=== PATIENT | male | born 1950 | race Caucasian/White ===

== ENCOUNTER 2017-05-16 09:00 | Outpatient (RCR) | payer MEDICARE, OTHER, MEDICAID, SELFPAY ==
--- NOTE | 2017-03-21 10:07 | HP.PTEVAL_ITS ---
Patient's Visit Information MAGED HARO is a 66 year old M referred to Physical Therapy by Julissa Jon NP.GUILLEPSIT with a diagnosis of SPONDYLOLISTHESIS AT L4-5 LEVEL. Date of Evaluation: 03/21/17 Physical Therapist: Anthony Rogers, PT, - Visit Plan Frequency: 2x /Week Duration: 4 Weeks Plan: POSTURAL EX'S,DLS,LE FLEXABLITY,STRENGTHENING,CP,NUSTEP. WEAN TO CANE , WEAN LUMBAR BRACE ANNE - Subjective Subjective: This 66 y/o male presents to physical therapy with spondylolisthesis at L4-5. Patient has had lumbar pain and radicular symptoms both for many years. Patient underwent s/p bilateral microdecompression L4-5 and instrumented fusion L4-5 (Peak cage fusion) on 02/27/17 done by at [facility].Patient was d/c 2 days later with fww and lumbar brace. Patient had complication with MEDS. Seen DR assisted recommended PT. Patient to RTD in May. Currently,patient has difficulty sleeping not because of pain. Patient symptoms increase with walking ,standing but needs FWW. Patient cane ambualte with no device.Wean lumbar brace as needed.Denies parathesia/tingling. Coughing/sneezing -. Patient has difficulty return prior level of function.Patient ambulates no device in home. SOCAIL: SINGLE. 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 GAIT: mild foward posture reciprocal pattern mild slow jon. NEURO: denies paratrhesia/tingling ,reflexes L3-,L4-5,L5-S1 1/3. SKIN: inscion well approximate ,mild redness. MMT: quads/hams/hip 4-/5, ankle 4/5. SYMMTRIES : align. LUMBAR ROM: flexion mod loss,extension severe loss,mod loss side glides - Special Tests L/S Slump test left side: Negative L/S Slump test right side: Negative L/S Left Straight Leg Raise: Negative L/S Right Straight Leg Raise: Negative - Goals Goal 1:: Independant with HEP Goal Time Frame: 4-6 Weeks Goal 2:: Independant with posture/body mechanics for ADL'S Goal Time Frame: 4-6 Weeks Goal 3:: Patient ambulate with no device to improve quality of gait community distances Goal Time Frame: 4-6 Weeks Goal 4:: Patient increase strength of BLE by 4/5 to improve function with ADL'S and function. Goal Time Frame: 4-6 Weeks Goal 5:: Patient improve lumbar ROM for function of recovery for ADL'S Goal Time Frame: 4-6 Weeks Goal 6:: Patient be able to perform ADL'S and housework tasks with min limitations Goal Time Frame: 4-6 Weeks - Rehabilitation Potential Physical Therapy Diagnosis: Patient has lumbar fusion peak cage instrumentation L4-5 with decrease gait ,strength,pain,lumbar ROM impairs with ADLS and function Rehabilitation Potential: Excellent - Anticipated Interventions Patient/Client Instruction: Educate patient on: Condition, Plan of Care For the Purpose of:: To decrease pain, To increase ROM, To improve muscle performance and motor function, To improve ability to perform ADL's, To increase tolerance to activity/condition/position, To improve ability of physical actions for home/community/work/leisure, To improve health of tissue, To decrease soft tissue restriction, To increase flexibility/ROM, To improve health and function, To improve ability to perform tasks related to life management Therapeutic Exercise to Include: Strength training, Postural training, Flexibilty training, Gait and locomotor training, Active ROM, Dynamic Lumbar Stabilization For the Purpose of:: To decrease pain, To increase ROM, To improve muscle performance and motor function, To improve ability to perform ADL's, To increase tolerance to activity/condition/position, To improve performance and independence with ADL's, To improve ability of physical actions for home/ community/work/leisure, To improve gait and locomotor functions, To improve health of tissue, To decrease soft tissue restriction, To increase flexibility/ ROM, To improve endurance, To improve balance, To improve health and function, To improve ability to perform tasks related to life management Cryotherapy (ice pack, ice massage): Yes Thermo therapy (hot pack): Yes For the Purpose of:: To decrease pain, To increase ROM, To improve nutrient delivery to tissue, To increase oxygenation perfusion Thank you for the opportunity to evaluate your patient. For Medicare and Medicare HMO plans, please review the plan of care and approve it. It will need to be FAXED BACK to us at [phone] for Medicare purposes. Please let me know if there are questions or concerns regarding this plan of care. Physician Signature: Date:
--- NOTE | 2017-04-17 10:42 | HP.PTREVAL_ITS ---
Julissa Jon , FERNANDO.ISAAC It has been my pleasure to treat MAGED HARO over the last 9 visits for SPONDYLOLISTHESIS AT L4-5 LEVEL. Please see the progress note below for an update on the physical therapy plan of care! Subjective: Doing well ..Able to walk no increase pain and standing for ADLS'. Wean self from lumbar.. use bone stimulator Objective/Function: POSTURE:mild foward posture. GAIT: reciprocal pattern , jon. MMT: quads/hams 4/5 ,hip 4/5,ankle. LUMBAR ROM: mod loss lumbar , extensionmod/severe,mod loss side glides. FLEXABLITY: min hams Plan Plan: cont POC 2xweek for 4weeks Goals Goal 1:: Independant with HEP Goal Time Frame: 4-6 Weeks Goal Progress: Progressing Goal 2:: Independant with posture/body mechanics for ADL'S Goal Time Frame: 4-6 Weeks Goal Progress: Progressing Goal 3:: Patient ambulate with no device to improve quality of gait community distances Goal Time Frame: 4-6 Weeks Goal Progress: Progressing Goal 4:: Patient increase strength of BLE by 4/5 to improve function with ADL'S and function. Goal Time Frame: 4-6 Weeks Goal Progress: Goal Met Goal 5:: Patient improve lumbar ROM for function of recovery for ADL'S Goal Time Frame: 4-6 Weeks Goal Progress: Progressing Goal 6:: Patient be able to perform ADL'S and housework tasks with min limitations Goal Time Frame: 4-6 Weeks Goal Progress: Progressing Anticipated Interventions Patient/Client Instruction: Educate patient on: Condition, Plan of Care For the Purpose of:: To decrease pain, To increase ROM, To improve muscle performance and motor function, To improve ability to perform ADL's, To increase tolerance to activity/condition/position, To improve ability of physical actions for home/community/work/leisure, To improve health of tissue, To decrease soft tissue restriction, To increase flexibility/ROM, To improve health and function, To improve ability to perform tasks related to life management Therapeutic Exercise to Include: Strength training, Postural training, Flexibilty training, Gait and locomotor training, Active ROM, Dynamic Lumbar Stabilization For the Purpose of:: To decrease pain, To increase ROM, To improve muscle performance and motor function, To improve ability to perform ADL's, To increase tolerance to activity/condition/position, To improve performance and independence with ADL's, To improve ability of physical actions for home/ community/work/leisure, To improve gait and locomotor functions, To improve health of tissue, To decrease soft tissue restriction, To increase flexibility/ ROM, To improve endurance, To improve balance, To improve health and function, To improve ability to perform tasks related to life management Cryotherapy (ice pack, ice massage): Yes Thermo therapy (hot pack): Yes For the Purpose of:: To decrease pain, To increase ROM, To improve nutrient delivery to tissue, To increase oxygenation perfusion Please do not hesitate to contact me at [phone] by phone or Fax: if you have questions or concerns regarding this new plan of care! Sincerely, Anthony Rogers PT,
--- NOTE | 2017-05-16 09:56 | HP.PTDCSUM_ITS ---
HP - PT D/C Summary It has been my pleasure to treat MAGED HARO under orders from Murcia NP.KOPSIT for the diagnosis of SPONDYLOLISTHESIS AT L4-5 LEVEL for a total of 16 visit(s). Discharge Date: 05/16/17 Please see the following information for a summary of their discharge status. - Subjective Subjective: Doing good .. Able do everything ADL'S and housework tasks,no limited with walking about 0ne mile. Standing extended distances - Pain Bilateral Back Pain Intensity (Out of 10): 0 Bilateral Lower Extremity Pain Intensity (Out of 10): 2 - Overall Improvement % Improvement: 80 - Objective Objective/Function: POSTURE:MILD FOWARD POSTURE. GAIT: NORMAL SHASHA RECIPROCAl PATTERN. BALANCE: GOOD. NEURO: INACT. MMT:QUADS/HAMS/HIP/ANKLE 5/ 5. LUMBAR ROM: flexion min loss,extension mod ,side glides daxa loss. FLEXABLIY : hams min loss - Goals Goal 1:: Independant with HEP Goal Progress: Goal Met Goal 2:: Independant with posture/body mechanics for ADL'S Goal Progress: Goal Met Goal 3:: Patient ambulate with no device to improve quality of gait community distances Goal Progress: Goal Met Goal 4:: Patient increase strength of BLE by 4/5 to improve function with ADL'S and function. Goal Progress: Goal Met Goal 5:: Patient improve lumbar ROM for function of recovery for ADL'S Goal Progress: Goal Met Goal 6:: Patient be able to perform ADL'S and housework tasks with min limitations Goal Progress: Goal Met - Plan Plan: d/c to HEP - D/C Information Discharge Comments: HEP If there are questions or concerns regarding this patient's physical therapy, please feel free to call me at [phone]. Thank you for the referral of this patient. Sincerely, Anthony Rogers, PT,
== END 2017-05-16 14:40 | disposition home or self-care (01) ==
LOC: PT 09:00
PROVIDERS: Family Provider Family Medicine; PCP Family Medicine; Visit Provider Nurse Practitioner Acute Care
DX: Z98.890 Other specified postprocedural states (principal)
CPT/HCPCS: 97110; 97162; 97530

== ENCOUNTER 2017-11-22 08:47 | Day surgery (SDC) | payer MEDICARE, OTHER, SELFPAY ==
[2017-11-22 09:06] VITALS: BP 123/73; PULSE 68; RESP 16; TEMP 36.4; O2SAT 94; BMI 31.2
--- NOTE | 2017-11-22 10:00 | COLBX_PTH ---
PATIENT: MAGED HARO LOC: EN U#:[id number] AGE/SX: 67/M ROOM: RE11/22/[address]: Dr. Seferino Orozco MD : 1950 BED: DIS: 11/22/2017 SPEC #: [id number] RECD: 11/22/17 11:41 STATUS: RAJNI TAMY #: [id number] ERIC: 11/22/17 10:[address]: Seferino Orozco DEPT: SURGICAL PATHOLOGY RECD BY: Juan Piña ENTERED: 11/22/17 12:00 SP TYPE: COLON BX OTHR DR: Dr. Shane Das, DO Tissues: Sigmoid colon biopsy Procedures: Surgery Specimen Level IV HEADER OPERATION: Colonoscopy (MAC) PRE-OP DIAGNOSIS: Screening TISSUE SUBMITTED: Sigmoid colon polyp MICROSCOPIC DIAGNOSIS Sigmoid colon polyp, biopsy: Fragments of hyperplastic polyp. AM:shree 11/25/17 MICROSCOPIC DESCRIPTION Slides are reviewed. GROSS DESCRIPTION Received in fixative is one container labeled with the patient's name and designated sigmoid colon polyp. The specimen consists of two pieces of maradiaga-pink polyp each measuring in aggregate 0.5 x 0.5 x 0.2 cm. Also present in the container are a few fragments of soft tissue mixed with fecal material measuring in aggregate 0.2 x 0.2 x 0.1 cm. The entire specimen is submitted in one cassette. / SJ:shree 11/22/17 TC:5 CPT: 95528
[2017-11-22 10:24] VITALS: BP 123/73; BP 76/42; PULSE 60; RESP 16; TEMP 35.9; O2SAT 92
--- NOTE | 2017-11-22 10:25 | OP.ENDO_ITS ---
Patient Name: Jake Sánchez Procedure Date: 11/22/2017 9:51 AM Date of : 1950 Age: 67 Procedure: Colonoscopy Indications: Screening for colorectal malignant neoplasm Providers: Seferino Orozco MD Referring MD: Seferino Orozco MD Medicines: Monitored Anesthesia Care Patient Profile: Last Colonoscopy: 2004. Complications: No immediate complications. Procedure: Pre-Anesthesia Assessment: - Prior to the procedure, a History and Physical was performed, and patient medications and allergies were reviewed. The patient's tolerance of previous anesthesia was also reviewed. The risks and benefits of the procedure and the sedation options and risks were discussed with the patient. All questions were answered, and informed consent was obtained. Prior Anticoagulants: The patient has taken no previous anticoagulant or antiplatelet agents. After reviewing the risks and benefits, the patient was deemed in satisfactory condition to undergo the procedure. After I obtained informed consent, the scope was passed under direct vision. Throughout the procedure, the patient's blood pressure, pulse, and oxygen saturations were monitored continuously. The colonoscope was introduced through the anus and advanced to the cecum, identified by appendiceal orifice and ileocecal valve. The colonoscopy was performed without difficulty. The patient tolerated the procedure well. The quality of the bowel preparation was good. Scope In: 10:01:37 AM Scope Withdrawal Time 0 hours 13 minutes 34 seconds Scope Out: 10:19:31 AM Total Procedure Duration Time 0 hours 17 minutes 54 seconds Findings: Non-bleeding internal hemorrhoids were found during retroflexion. The hemorrhoids were Grade II (internal hemorrhoids that prolapse but reduce spontaneously). The exam was otherwise without abnormality. Two polyps were found in the proximal sigmoid colon. The polyps were small in size. These polyps were removed with a hot snare. Resection and retrieval were complete. Impression: - Non-bleeding internal hemorrhoids. - The examination was otherwise normal. - Two small polyps in the proximal sigmoid colon, removed with a hot snare. Resected and retrieved. Recommendation: - Discharge patient to home. - Resume previous diet. - Continue present medications. - Await pathology results. - Repeat colonoscopy date to be determined after pending pathology results are reviewed for surveillance. - Physician's office will call you with pathology results and recommendations for when to repeat colonoscopy. Procedure Code(s): --- Professional --- 79760, 33, Colonoscopy, flexible; with removal of tumor(s), polyp(s), or other lesion(s) by snare technique Diagnosis Code(s): --- Professional --- Z12.11, Encounter for screening for malignant neoplasm of colon K64.1, Second degree hemorrhoids D12.5, Benign neoplasm of sigmoid colon CPT copyright 2017 [employer] [place] [employer]. All rights reserved. The codes documented in this report are preliminary and upon ordnance engineer review may be revised to meet current compliance requirements. Seferino Orozco MD 11/22/2017 10:25:32 AM This report has been signed electronically. Number of Addenda: 0 Note Initiated On: 11/22/2017 9:51 AM
[2017-11-22 10:30] VITALS: BP 123/73; BP 92/49; PULSE 56; RESP 16; O2SAT 95
[2017-11-22 10:35] VITALS: BP 105/67; BP 123/73; PULSE 60; RESP 16; O2SAT 96
[2017-11-22 10:40] VITALS: BP 123/71; BP 123/73; PULSE 64; RESP 16; TEMP 36.2; O2SAT 95
[2017-11-22 10:59] VITALS: BP 123/73
== END 2017-11-22 11:00 | disposition home or self-care (01) ==
LOC: EN 08:48 → AC 08:49
PROVIDERS: Family Provider Family Medicine; PCP Family Medicine; Referring Provider Surgery; Visit Provider Surgery
PROC: 0DJD8ZZ Inspection of Lower Intestinal Tract, Via Natural or Artificial Opening Endoscopic (ICD-10-PCS; CPT 45378; principal; 2017-11-22 09:55)
DX: Z12.11 Encounter for screening for malignant neoplasm of colon (principal); K63.5 Polyp of colon; K64.1 Second degree hemorrhoids; K58.9 Irritable bowel syndrome, unspecified; M19.90 Unspecified osteoarthritis, unspecified site; G89.29 Other chronic pain; I10 Essential (primary) hypertension; F32.9 Major depressive disorder, single episode, unspecified; F41.9 Anxiety disorder, unspecified; Z87.19 Personal history of other diseases of the digestive system; Z98.1 Arthrodesis status; Z79.899 Other long term (current) drug therapy; F17.200 Nicotine dependence, unspecified, uncomplicated
CPT/HCPCS: 45385; 88305; J7120

== ENCOUNTER → 2018-05-13 11:31 | Outpatient (CLI) | payer MEDICARE, OTHER, SELFPAY ==
[2018-05-13 11:02] VITALS: BMI 34.7
[2018-05-13 12:58] LABS: Anion Gap 6 (5-15); BUN 13 mg/dL (7-18); BUN/Creat Ratio 10.2 RATIO (10-20); Calcium,Total 9.4 mg/dL (8.5-10.1); Chloride 106 mmol/L (98-107); Creatinine, Serum 1.27 mg/dL (0.70-1.30); EST Glomerular Filtration Rate 60 mL/min (>60); Est Glom Filt Rate - Afr Amer 73 mL/min (>60); Glucose 93 mg/dL (74-106); Potassium 4.2 mmol/L (3.5-5.1); Sodium Level 144 mmol/L (136-145)
== END ==
PROVIDERS: Family Provider Family Medicine; PCP Family Medicine; Visit Provider Family Medicine
DX: I10 Essential (primary) hypertension (principal)
CPT/HCPCS: 36415; 80048

== ENCOUNTER → 2018-08-12 | Outpatient (CLI) | payer MEDICARE, OTHER, SELFPAY ==
[2018-08-12 14:28] VITALS: BMI 36.0
--- NOTE | 2018-08-12 14:42 | RAD_ITS ---
STUDY: X-RAY - CERVICAL SPINE REASON FOR EXAM: Male, 67 years old. Pain TECHNIQUE: 3 view(s) of the cervical spine were obtained. COMPARISON: 03/11/2014 FINDINGS: There is no evidence of fracture or dislocation in the cervical spine. The dens is intact. The vertebral body heights are well-maintained. There are mild degenerative changes with disc space narrowing and small osteophytes. The prevertebral soft tissues are unremarkable. There is no radiodense foreign body. RAD/Cerv Spine 2 or 3 Views IMPRESSION: No fracture or dislocation in the cervical spine. Mild degenerative change. Electronically Signed: Alonso Huntley, at 15:22 EDT Tel , Service support ,
--- NOTE | 2018-08-12 14:42 | RAD_ITS ---
STUDY: X-RAY - THORACIC SPINE REASON FOR EXAM: Male, 67 years old. Back pain TECHNIQUE: 3 view(s) of the thoracic spine were obtained. COMPARISON: None. FINDINGS: Normal kyphosis of the thoracic spine. Mild focal dextroscoliosis of the midthoracic spine. There is multilevel endplate spondylosis of the thoracic vertebrae. There is multilevel disc space narrowing of the thoracic spine. The soft tissue structures are unremarkable. RAD/Thoracic Spine 3 Views IMPRESSION: Mild dextro scoliosis of the upper thoracic spine with diffuse degenerative disc disease. Electronically Signed: Juan Nguyen MD at 15:55 EDT Tel , Service support ,
== END | disposition home or self-care (01) ==
LOC: HPRAD 14:40
PROVIDERS: Family Provider Family Medicine; PCP Family Medicine; Referring Provider Physician Assistant Surgical; Visit Provider Physician Assistant Surgical
DX: S29.019A Strain of muscle and tendon of unspecified wall of thorax, initial encounter (principal)
CPT/HCPCS: 72040; 72072

== ENCOUNTER → 2019-01-21 10:07 | Outpatient (CLI) | payer MEDICARE, OTHER, SELFPAY ==
[2019-01-20 13:08] VITALS: BMI 36.0
[2019-01-21 12:44] LABS: Erythrocyte Sedimentation Rate 19 mm/hr (0-20)
== END ==
PROVIDERS: Family Provider Family Medicine; PCP Family Medicine; Visit Provider Family Medicine
DX: G89.29 Other chronic pain (principal); R51 Headache
CPT/HCPCS: 36415; 85652

== ENCOUNTER 2020-11-08 10:00 | Outpatient (RCR) | payer MEDICARE, SELFPAY ==
[2020-04-26 10:31] VITALS: BMI 37.7
--- NOTE | 2020-10-06 11:37 | HP.PTEVAL ---
Patient's Visit Information MAGED HARO is a 69 year old M referred to Physical Therapy by Princess Woody, LAM with a diagnosis of Lumbar stenosis. Date of Evaluation: 10/06/20 Physical Therapist: Darren Salinas DPT, OCS, CSCS - Visit Plan Frequency: 2x /Week Duration: 4-6 Weeks Plan: 2x/week for 4-6 weeks as needed for. 1. rollout and stretch quad and hip flexors, stretch HS and gastroc. 2. ROM general to LB improving ROM. 3. teach core strength on mat for NS posture. 4. Teach general ex for Chevia with list. STM if needed to LB. - Subjective Had L45 fused 1.5 yrs ago. 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 Also has some R LBP starting at waist band. This started in June with walking and then going back to work and lifting. Doc did x rays and surgical looks good. Sent for therapy but no other treatment. Pain is worse walking and lifting. If on feet alot for 4 hrs at work and worse after shift. Does whatever he wants but it hurts. No regular exercises. Sleep is not great due to insomnia, not low back pain. Lying on R side hurts - Pain R LB and R leg Pain Intensity (Out of 10): 1 Pain Intensity Range: 1, 10 - Objective `Walk stiff but I, trasnfers are I bed and chair. Walks with stiffness but no antalgia today. LB AROM ext max limited, slight pain, SB max limited withotu pain, flexion mod limited and no pain. - slump and SLR tests. reflexes 2/3 patella and achilles. Sensation LE WNL to gross lgiht touch. Strength LE 4+ knees and ankles, 4- hip abd and ext. Max tightness gastroc to 0 DF, HS, quads, ITB and hip flexors. Some pain lying flat with knees straight. - Balance/Special Test Scores Oswestry Low Back Score: 3 - Goals Goal 1:: Pt I in appropriate LB ROM, leg stretches and core strength with general calorie burn ex for [employer] Goal Time Frame: 4-6 Weeks Goal 2:: Pt feel pain in R leg and LB 75% improved and 2/10 at worst Goal Time Frame: 4-6 Weeks Goal 3:: 1 or better oswestry score. Goal Time Frame: 4-6 Weeks - Rehabilitation Potential Physical Therapy Diagnosis: back and leg symptoms from stenosis Rehabilitation Potential: Fair - Anticipated Interventions Patient/Client Instruction: Educate patient on: Condition, Plan of Care For the Purpose of:: To decrease pain, To improve muscle performance and motor function, To increase tolerance to activity/condition/position, To improve gait and locomotor functions Therapeutic Exercise to Include: Strength training, Postural training, Flexibilty training, Gait and locomotor training, Passive ROM, Active ROM, Dynamic Lumbar Stabilization For the Purpose of:: To decrease pain, To increase ROM, To improve muscle performance and motor function, To increase tolerance to activity/condition/position, To improve ability of physical actions for home/community/work/leisure Manual Therapy Techniques to Include: Soft tissue mobilization For the Purpose of:: To decrease pain, To improve nutrient delivery to tissue Thermo therapy (hot pack): Yes For the Purpose of:: To decrease pain, To improve nutrient delivery to tissue Thank you for the opportunity to evaluate your patient. For Medicare and Medicare HMO plans, please review the plan of care and approve it. It will need to be FAXED BACK to us at [phone] for Medicare purposes. For Medicare only, by signing this I certify the plan of care. Please let me know if there are questions or concerns regarding this plan of care. Physician Signature: Date:
--- NOTE | 2020-11-08 10:41 | HP.PTDCSUM_ITS ---
It has been my pleasure to treat MAGED HARO referred by LAM Mcgovern, with the diagnosis of Lumbar stenosis for a total of 9 visit(s). Discharge Date: 11/08/20 Please see the following information for a summary of their discharge status. Subjective: Getting better. No more k not in waist on R side. Burning is improved in R quad. Went to Doctor last week adn will maintain status quo unles sit worsens then possibly MRI. Will take it easy at work and lift less. Work is going OK, slightly worse burn after work. Sleep is interrupted due to insomnia. Pt said no to steroids. Plans on joining [employer] and continuing gym ex and stretches at home. R LB and R leg Pain Intensity (Out of 10): 0 % Improvement: 50 Objective/Function: Good and functioal aROM LB without pain today. Walking normal without pain and steps reciprocally without complaints. Goal 1:: Pt I in appropriate LB ROM, leg stretches and core strength with general calorie burn ex for [employer] membership Goal Progress: Goal Met Goal 2:: Pt feel pain in R leg and LB 75% improved and 2/10 at worst Goal Progress: 50%, Goal 3:: 1 or better oswestry score. Goal Progress: Progressing Plan: d/c, pt to continue home stretches daily and gym ex 3x/week(copies given today.) Discharge Comments: to gym adn home HEP. If there are questions or concerns regarding this patient's physical therapy, please feel free to call me at [phone]. Thank you for the referral of this patient. Sincerely, Darren Salinas, DPT, OCS, CSCS Balance/Gait/Functional tests - Balance/Special Test Scores Oswestry Low Back Score: 3
== END 2020-11-08 19:00 | disposition home or self-care (01) ==
LOC: PT 10:00
PROVIDERS: PCP Family Medicine; Referring Provider Nurse Practitioner; Visit Provider Nurse Practitioner
DX: M48.061 Spinal stenosis, lumbar region without neurogenic claudication (principal)
CPT/HCPCS: 97110; 97162; 97164

== ENCOUNTER → 2021-01-30 | Outpatient (CLI) | payer MEDICARE, SELFPAY | END | disposition home or self-care (01) | LOC: LABSPEC 11:42 | PROVIDERS: PCP Family Medicine; Visit Provider Physician Assistant | DX: R05.9 Cough, unspecified (principal) | CPT/HCPCS: 87635; U0005; U0003 ==

== ENCOUNTER 2021-07-20 11:00 | Outpatient (RCR) | payer MEDICARE, SELFPAY ==
--- NOTE | 2021-06-22 13:21 | HP.PTEVAL_ITS ---
Patient's Visit Information MAGED HARO is a 70 year old M referred to Physical Therapy by Dr. William Zambrano DO with a diagnosis of HNP L3-L4. Date of Evaluation: 06/22/21 Physical Therapist: Annabel Perez DPT - Visit Plan Frequency: 2x /Week Duration: 4 Weeks Plan: Aquatics- focus on LE and core strength/stabilization - Subjective Back surgery 3-[address] 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 Went home- showered- sat down- went to get back up and could not move. He has pain along the iliac crest and radiates to the groin and quad and has worked its way into the lower back and is now up into the ribs- only on the left side. Last time he was in PT the right side was numb. He rolled with a rolling pin the quad and ice- it helps but it always comes back. PCP suggested x-rays which showed no abnormalities, so she gave him muscle relaxers- asked for a referral- saw Dr. Zambrano- he ordered an MRI. They refused the MRI due to not having PT or injections. He is now taking pain medication at night. Dr. Zambrano saw degen between L3-L4. His goal is to get back to work and to be able to play with his granddaughter. He felt the best he has on Saturday night but then woke up on Sat feeling horrible. At this point he is recliner sitting most of the day with ice on his back/hip. Ag/10 Agg: getting the foot off the ground. Best: 0- 1/10. Eases: sitting and resting. Describes the pain as achy and sharp- mornings are hard. 5/10 daily. Sleep: insomnia- trying to train to his back- normally rolls to his right side. No loss of bowel or bladder but has had some changes due to medication. Does have N/T that comes and goes from his hip to his toes. Does not do any exercises- he needs to get moving again- he has silver sneakers but he hasn?t used it. PMHx/Meds: no changes since saw Dr. Zambrano - Objective Posture: FH, RS- can correct with verbal and tactile cues but does not maintain. Gait: slightly antalgic- decreased stance on left LE. Stairs: asc/desc 8 recip with 2 HR. HR/TR: able with UE A. SLS: weight shift but unable to SLS. ROM: Lumbar: WFL with pain in Side bending right and Rotation left. Strength: Core: fair minus, Hip: 4-/5 throughout, Knee: 5/5, Ankle: 5/5. Flex: HS: severe, Gastroc: severe. Reflex: WFL. Sensation: WFL to gross touch bilateral LE - Special Tests L/S Slump test left side: Positive L/S Slump test right side: Positive L/S Left Straight Leg Raise: Positive L/S Right Straight Leg Raise: Positive - Balance/Special Test Scores Oswestry Low Back Score: 15 - Goals Goal 1:: Patient will be I with HEP and progression Goal Time Frame: 4-6 Weeks Goal 2:: Patient will maintain proper posture t/o tx session to demo increased core s/s Goal Time Frame: 4-6 Weeks Goal 3:: Patient will report 80% improvement. Goal Time Frame: 4-6 Weeks - Rehabilitation Potential Physical Therapy Diagnosis: Patient presents with hypomobility- he has decreased pain free ROM in the lumbar spine, LE and core strength/stabilization, proprioception, flex and muscular endurance leading to poor posture and increased pain with ADL's Rehabilitation Potential: Fair - Anticipated Interventions Patient/Client Instruction: Educate patient on: Benefits of Fitness Program Therapeutic Exercise to Include: Strength training, Endurance training, Balance training, Coordination, Agility training, Body mechanics, Postural training, Flexibilty training, Gait and locomotor training, Neuromotor development, In an aquatic setting, Dynamic Lumbar Stabilization, Scapular Strength/Stabilization For the Purpose of:: To improve muscle performance and motor function Thank you for the opportunity to evaluate your patient. For Medicare and Medicare HMO plans, please review the plan of care and approve it. It will need to be FAXED BACK to us at [phone] for Medicare purposes. For Medicare only, by signing this I certify the plan of care. Please let me know if there are questions or concerns regarding this plan of care. Physician Signature: Date:
--- NOTE | 2021-07-20 11:22 | HP.PTDCSUM_ITS ---
It has been my pleasure to treat MAGED HARO referred by Dr. William Zambrano DO, with the diagnosis of HNP L3-L4 for a total of 9 visit(s). Discharge Date: Please see the following information for a summary of their discharge status. Subjective: Patient reports that he has a comprehensive home exercise program from last time. Patient reports no pain on the left side and is ready to go back to work. He does have some pain on the right that comes and goes. He is ready to be discharged and get back to work- he plans to go back on Saturday. Lumbar Spine Pain Intensity (Out of 10): 1 LLE Pain Intensity (Out of 10): 0 % Improvement: 100 Objective/Function: Posture: good throughout. Gait: no deviation noted. Stairs: asc/desc 8 recip with no HR. HR/TR: able with UE A. SLS: 10 seconds. ROM: Lumbar: WFL with no pain. Strength: Core: fair, Hip: 4+/5 throughout, Knee: 5/5, Ankle: 5/5. Flex: HS: mod, Gastroc: mod. Reflex: WFL. Sensation: WFL to gross touch bilateral LE Goal 1:: Patient will be I with HEP and progression Goal Progress: Goal Met Goal 2:: Patient will maintain proper posture t/o tx session to demo increased core s/s Goal Progress: Goal Met Goal 3:: Patient will report 80% improvement. Goal Progress: Goal Met Plan: Discharge to [facility] If there are questions or concerns regarding this patient's physical therapy, please feel free to call me at [phone]. Thank you for the referral of this patient. Sincerely, Annabel Perez, DPT Balance/Gait/Functional tests - Balance/Special Test Scores Oswestry Low Back Score: 0
== END 2021-07-20 19:00 | disposition home or self-care (01) ==
LOC: PT 11:00
PROVIDERS: PCP Family Medicine; Referring Provider Orthopaedic Surgery; Visit Provider Orthopaedic Surgery
DX: M51.26 Other intervertebral disc displacement, lumbar region (principal)
CPT/HCPCS: 97113; 97162; 97164

== ENCOUNTER → 2022-05-17 | Outpatient (CLI) | payer MEDICARE, SELFPAY ==
--- NOTE | 2022-05-17 14:00 | RAD_ITS ---
INDICATION: chronic cough EXAMINATION/TECHNIQUE: X-RAY - XR Chest 2 Views COMPARISON: 09/21/2015 FINDINGS: LIFE-SUPPORT AND LINES: 1. None HEART AND VESSELS: The cardiac silhouette, pulmonary vasculature have normal appearance. No evidence of congestive failure. LUNGS AND PLEURAL SPACES: Interstitial prominence at the lung bases bilaterally without consolidation or effusion. No pulmonary mass is noted. MEDIASTINUM AND HILAR REGIONS: No masses adenopathy noted. No areas of calcification. Visualized upper airway is normal in position. BONY ELEMENTS: No acute bony changes noted. RAD/Chest PA and Lateral IMPRESSION: 1. Interstitial prominence at the lung bases, no lobar consolidation however interstitial atypical infiltrate is a consideration. Additionally consideration could include chronic interstitial lung disease. 2. No congestive failure. Electronically Signed: Juan Sims MD at 0:04 EDT ,
== END | disposition home or self-care (01) ==
LOC: MTRAD 14:00
PROVIDERS: PCP Family Medicine; Referring Provider Family Medicine; Visit Provider Family Medicine
DX: U07.1 COVID-19 (principal)
CPT/HCPCS: 71046

== ENCOUNTER → 2022-06-21 | Outpatient (CLI) | payer MEDICARE, MEDICAID, SELFPAY ==
--- NOTE | 2022-06-22 07:43 | PFT ---
INTRODUCTION: The patient is a 71-year-old male that presents for pulmonary function studies secondary to a diagnosis of COPD. Respiratory therapy reported good patient effort. Bronchodilators were used during testing. INTERPRETATION: Forced expiration spirometry demonstrates the presence of a mild large airways obstructive ventilatory defect. There was a significant response to aerosolized bronchodilators. Spirograms are of good quality and plateau normally. Body plethysmography was performed and revealed lung volumes to be within normal limits. Diffusing capacity by single breath CO was also within normal limits. IMPRESSION: Fully reversible mild large airways obstructive ventilatory defect with preserved lung volumes and diffusion capacity.
== END | disposition home or self-care (01) ==
LOC: PSN 07:51
PROVIDERS: PCP Family Medicine; Referring Provider Family Medicine; Visit Provider Family Medicine
DX: J44.9 Chronic obstructive pulmonary disease, unspecified (principal)
CPT/HCPCS: 94060; 94726; 94729

== ENCOUNTER → 2022-09-18 | Outpatient (CLI) | payer MEDICARE, MEDICAID, SELFPAY ==
--- NOTE | 2022-09-18 15:55 | RAD_ITS ---
STUDY: X-RAY - LUMBAR SPINE REASON FOR EXAM: Male, 71 years old. lbp w/ rle paresthesias TECHNIQUE: 3 view(s) of the lumbar spine were obtained. COMPARISON: June 07, 2021 FINDINGS: Normal lumbar lordosis. There is no substantial scoliosis. There is a normal alignment of the vertebrae. Status post laminectomy at L4 and L5. Degenerative spurring at the lumbar vertebral endplates. Surgical fusion at L4 and L5 with a disc spacer. Normal disc space heights. The soft tissue structures are unremarkable. Calcified aorta. RAD/Lumbar Spine 2 or 3 Views IMPRESSION: Degenerative and postsurgical changes as noted of the lumbar spine. No significant interval changes. Electronically Signed: Andrea Zimmerman DO at 16:33 EDT Reading Location ID and State: [facility] / [place] Tel [phone], Service support ,
== END | disposition home or self-care (01) ==
LOC: MTRAD 15:49
PROVIDERS: PCP Family Medicine; Referring Provider Physician Assistant; Visit Provider Physician Assistant
DX: S39.012A Strain of muscle, fascia and tendon of lower back, initial encounter (principal); M54.16 Radiculopathy, lumbar region
CPT/HCPCS: 72100

== ENCOUNTER → 2022-11-19 | Outpatient (CLI) | payer MEDICARE, MEDICAID, SELFPAY ==
--- NOTE | 2022-11-19 17:34 | CT_ITS ---
STUDY: LOW DOSE CT LUNG CANCER SCREENING REASON FOR EXAM: Male, 72 years old. history of smoking. The patient smoked 1 pack per day for 50 years. RADIATION DOSAGE (If Supplied By Facility): CTDIvol = ( 4.02 ) mGy, DLP = ( 139.44 ) mGycm TECHNIQUE: No contrast was administered. Low dose technique was utilized (average mAS-38 and kVp 120). 1.25 mm axial source images with a slice interval of 1.25-mm were reconstructed in lung windows. 2.5 mm axial source images with a slice interval of 2.5-mm were reconstructed in lung windows. 5.0 mm axial source images with a slice interval of 5.0-mm were reconstructed in soft tissue windows. COMPARISON: Comparison is made with prior chest radiograph dated May 17, 2022. NODULES: There is a 1.3 cm x 1.2 cm spiculated nodule in the posterior aspect of the right lower lobe as seen on axial image #197 and coronal image #222. Emphysema: Emphysematous changes more pronounced in the upper lobes especially in the right upper lobe. Subpleural blebs are seen. Endobronchial lesion: Unremarkable Aorta: Mild atherosclerotic plaque formation of the aortic arch. CORONARY ARTERIES: Coronary artery calcification is seen. Heart: Unremarkable Pulmonary artery: Unremarkable Mediastinal nodes: Small benign-appearing mediastinal lymph nodes. Calcified subcarinal lymph nodes. Calcified right hilar lymph nodes. Other chest and abdominal findings: CT/Low Dose CT Lung Screening IMPRESSION: Lung-RADS category 4B - Chest CT with or without contrast, PET/CT and/or tissue sampling can be obtained depending on the probability of malignancy and comorbidities. IMPORTANT NOTES FOR USE: ACR Lung-RADS Version 1.1 Assessment Categories Release Date: 2018 Category: Coded 0-4 bases on nodule(s) with highest degree of suspicion. Negative screen is defined as categories 1 and 2; a positive screen is defined as categories 3 and 4. Category 3 and 4A nodules that are unchanged on interval CT should be coded as category 2, and individuals returned to screening in 12 months. Category 4X: Category 3 or 4 nodules with additional imaging findings that increase the suspicion of lung cancer, such as spiculation, GGN that doubles in size in 1 year, enlarged lymph notes, etc. Category Modifiers: S (significant finding unrelated to lung cancer) Electronically Signed: John Jones MD at 14:45 EDT ,
== END | disposition home or self-care (01) ==
LOC: CT 17:31
PROVIDERS: PCP Family Medicine; Referring Provider Family Medicine; Visit Provider Family Medicine
DX: Z87.891 Personal history of nicotine dependence (principal)
CPT/HCPCS: 71271

== ENCOUNTER → 2022-12-18 | Outpatient (CLI) | payer MEDICARE, MEDICAID, SELFPAY ==
--- NOTE | 2022-12-18 11:30 | PET_ITS ---
EXAMINATION: FDG PET/CT ? INDICATIONS: 72-year-old male with a history of pulmonary nodularity. ? COMPARISON EXAMINATION: CT of the chest report dated 11/19/2022. ? TECHNIQUE: Following the intravenous administration of 15.25 mCi of F-18 deoxyglucose via the left hand, multiplanar image acquisitions of the head, neck, chest, abdomen and pelvis to the level of the midthigh, obtained at one-hour post radiopharmaceutical administration contemporaneously interpreted with the current CT of the chest, abdomen and pelvis dated 12/18/[address] of the chest study report dated 11/19/2022 via coregistration reveal: SERUM GLUCOSE LEVEL:? 113 mg/dL? HEIGHT:?? 69 inches WEIGHT:?? 225 pounds ? FINDINGS: ? HEAD/NECK:? There is no evidence of abnormal increased glucose metabolism in the pharyngeal mucosal space, parapharyngeal space, oropharynx, bilateral-lateral and anterior neck, hypopharynx and distribution of the larynx. ? The visualized portion of the cerebral cortical-subcortical structures demonstrate symmetric and preserved glucose metabolism. ? CHEST:? Facilitated uptake is noted within the ascending and descending thoracic aorta commensurate with activated leukocytes associated with atherosclerotic plaque formation. There is no quantitative scintigraphic evidence of abnormal increased glucose metabolism within the context of the bilateral hemithorax pulmonary parenchyma, right and left hemithorax at the pleural interface, mediastinal structures, and left-right thoracic perihilum. ? CT of the chest demonstrates the following anatomic characteristics: Atherosclerotic calcification is defined in the thoracic aorta without evidence of dilatation, aneurysm formation. A rounded, non-calcified density noted in the left lower posterior lung zone is ametabolic. Coronary arterial calcification is observed. Calcified and non-calcified thoracic perihilar and mediastinal soft tissue, as well as bilateral axillary soft tissue densities, are ametabolic.? ? ABDOMEN/PELVIS:? Normal physiologic distribution of the radiopharmaceutical is identified in the hepatic and splenic parenchyma, both renal units, urinary bladder, and visualized intestinal tract. Diffuse intestinal tract is identified in all four quadrants of the abdomen and pelvis. ? CT of the abdomen and pelvis is remarkable for the following: Atherosclerotic calcification is defined in the abdominal aorta without evidence of dilatation, aneurysm formation. Abdominal-pelvic arterial calcification is observed. Calcified granuloma formation is noted within the splenic parenchyma. Calcified phlebolith formation is encountered in the left lower hemipelvis. Beam-hardening artifact is identified in the lower abdominal and upper pelvic mesentery, attributed to orthopedic hardware placement. Cyst formation is defined in the left kidney. ? SKELETAL: Orthopedic hardware placement is defined in the lower left spine, commensurate with spinal fusion operative intervention. ? Degenerative changes defined in the thoracic and lumbar spine demonstrate no evidence of increased glucose metabolism. There are no sclerotic, mixed sclerotic-lytic, or primarily lytic changes defined in the axial skeletal structures with evidence of increased FDG uptake. ? PET/PET/CT Tumor Base -Thigh Init IMPRESSION: 1. NEGATIVE EXAMINATION. There is no definitive quantitatively significant scintigraphic evidence of viable neoplasm. 2. Metabolic, morphologic stability may be ensured in the left hemithorax nonglucose avid parenchymal density with repeat FDG-PET CT imaging or CT of the thorax in 3-6 months if clinically indicated. Electronic Signature Juan Melissa D.O. Accurate Quantification of SUVs for this report are calculated using the exclusive [employer]. (U.S. Patent No. [phone], [phone] 983 B2 [phone] [place] patent [phone]). Standardization and correction of the FDG SUV metric via [employer] technology allow for vendor non-specific objective quantitative examination comparison and optimization of the sensitivity and specificity of the FDG PET-CT examination. . [email or web address] Electronically Signed: Juan Melissa DO at 22:57 EDT ,
== END | disposition home or self-care (01) ==
LOC: ONC 11:00
PROVIDERS: PCP Family Medicine; Referring Provider Internal Medicine Critical Care Medicine; Visit Provider Internal Medicine Critical Care Medicine
DX: R91.1 Solitary pulmonary nodule (principal)
CPT/HCPCS: 78815; A9552

== ENCOUNTER → 2023-02-06 | Outpatient (CLI) | payer MEDICARE, MEDICAID, SELFPAY ==
[2023-02-06 12:34] LABS: Absolute Lymphocyte Count 2.73 X10^3/uL (0.83-4.51); Absolute Neutrophil Count 7.8 X10^3/uL (2.0-7.7); Basophil# 0.03 X10^3/uL; Basophil% 0.3 % (0-1); Eosinophil# 0.09 X10^3/uL; Eosinophils% 0.8 % (0-5); Hematocrit 44.9 % (40-54); Hemoglobin 14.2 g/dL (13.0-16.5); Lymphocyte # 2.73 X10^3/ul (0.83-4.51); Lymphocyte % 24.2 % (19-41); Mean Corp Hgb Conc 31.6 g/dL (32-36); Mean Corpuscular Hgb 28.3 pg (27.0-32.0); Mean Corpuscular Volume 89.6 fL (80-94); Mean Platelet Vol. 10.6 fl (6.2-12.0); Monocyte# 0.66 X10^3/uL; Monocyte% 5.8 % (0-10); NRBC Flagged by Analyzer 0 % (0-5); Neutrophil # 7.76 X10^3/uL (2.7-7.7); Neutrophil % 68.6 % (47-70); Platelet Count 268 K/mm3 (150-450); RBC Distribution Width CV 14.6 % (11.6-14.6); RBC Distribution Width SD 47.8 fl (35.1-43.9); Red Blood Count 5.01 M/mm3 (4.6-6.2); White Blood Count 11.3 K/mm3 (4.4-11.0)
[2023-02-06 13:15] LABS: ALB/GLOB Ratio 1.2 RATIO (0.9-2.4); AST(SGOT) 24 U/L (15-37); Alanine Aminotransfer ALT/SGPT 27 U/L (16-61); Albumin, Serum 4.2 g/dL (3.2-5.0); Alkaline Phosphatase 68 U/L (45-117); Anion Gap 10 (5-15); BUN 31 mg/dL (7-18); BUN/Creat Ratio 19.7 RATIO (10-20); Calcium,Total 9.1 mg/dL (8.5-10.1); Chloride 106 mmol/L (98-107); Creatinine, Serum 1.57 mg/dL (0.70-1.30); EST Glomerular Filtration Rate 47 mL/min (>60); Est Glom Filt Rate - Afr Amer 56 mL/min (>60); Globulin 3.5 g/dL (2.2-4.2); Glucose 84 mg/dL (74-106); Magnesium 2.4 mg/dL (1.6-2.6); Potassium 4.2 mmol/L (3.5-5.1); Protein, Total 7.7 g/dL (6.4-8.2); Sodium Level 144 mmol/L (136-145)
== END | disposition home or self-care (01) ==
LOC: BIMLAB 11:55
PROVIDERS: PCP Family Medicine; Referring Provider Family Medicine; Visit Provider Family Medicine
DX: I10 Essential (primary) hypertension (principal)
CPT/HCPCS: 36415; 80053; 83735; 85025

== ENCOUNTER → 2023-06-20 | Outpatient (CLI) | payer MEDICARE, MEDICAID, SELFPAY ==
--- NOTE | 2023-06-20 15:10 | CT_ITS ---
INDICATION: lung mass EXAMINATION: CT CHEST WITHOUT CONTRAST - CT Chest W/O Contrast Injection TECHNIQUE: Helically acquired images were obtained of the chest. A radiation dose optimization technique was used for this scan. IV Contrast dosage and agent: None. RADIATION DOSAGE (If Supplied By Facility): CTDIvol = ( 19.28 ) mGy, DLP = ( 737.06 ) mGycm COMPARISON: No relevant prior comparison study available FINDINGS: LUNGS, PLEURA AND LARGE AIRWAYS: Mild emphysematous and bullous changes in the lung APCs. No focal infiltrate seen. 5 mm left lower lobe nodule seen on image 77 series 4 for which no further follow-up exam is needed. 11 mm noncalcified left lower lobe nodule seen on image 96 series 4. No pleural effusion or thickening. No pneumothorax. THYROID: No thyroid lesions. HEART AND PERICARDIUM: Heart size is normal. No pericardial effusion. CORONARY ARTERIES: Coronary artery calcification is seen. VESSELS: Thoracic aorta is not dilated. MEDIASTINUM AND ALISON: No mediastinal or hilar adenopathy. Calcified subcarinal nodes. Esophagus is unremarkable. No hiatal hernia. UPPER ABDOMEN: No acute pathology. BONES: No suspicious lytic or blastic abnormality. CT/Chest without Contrast IMPRESSION: 11 mm noncalcified left lower lobe nodule for which correlation with PET scan is recommended. Electronically Signed: Kishan Gao MD at 11:36 EDT ,
== END | disposition home or self-care (01) ==
PROVIDERS: PCP Family Medicine; Referring Provider Nurse Practitioner Acute Care; Visit Provider Nurse Practitioner Acute Care
DX: R91.1 Solitary pulmonary nodule (principal)
CPT/HCPCS: 71250

== ENCOUNTER → 2023-07-02 | Outpatient (CLI) | payer MEDICARE, MEDICAID, SELFPAY ==
--- NOTE | 2023-07-02 10:30 | PET_ITS ---
EXAMINATION: FDG PET-CT INDICATIONS: A 72-year-old male with a history of pulmonary nodularity. COMPARISON EXAMINATION: Previous FDG PET CT study dated 12/18/[address] of the chest report dated 06/20/23. TECHNIQUE: Following the intravenous administration of 11.64 mCi of F-18 deoxyglucose via the left hand, multiplanar image acquisitions of the head, neck, chest, abdomen and pelvis to level of mid-thigh, lower extremities obtained at one hour post radiopharmaceutical administration contemporaneously interpreted with the current CT of the head, neck, chest, abdomen and pelvis to level of mid-thigh, lower extremities dated 07/02/23 via coregistration and previous FDG PET CT study dated 12/18/[address] of the chest report dated 06/20/23 reveal: SERUM GLUCOSE LEVEL: 102 mg/dl. HEIGHT: 70 inches. WEIGHT: 227 lbs. FINDINGS: Head/Neck: There is no evidence of abnormal increased glucose metabolism in the pharyngeal mucosal space, parapharyngeal space, bilateral-lateral and anterior neck, hypopharynx and distribution of the laryngeal structures. The visualized portion of the cerebral cortical-subcortical structures demonstrate symmetric and preserved glucose metabolism. CHEST: There is no quantitative scintigraphic evidence of abnormal increased glucose metabolism within the context of the bilateral hemithorax pulmonary parenchyma, right and left hemithoracic pleural interface, mediastinal structures and thoracic perihilum.? Pertinent chest CT findings are as follows. Otherwise, the previously defined morphologic-anatomic changes described on the prior FDG PET-CT report dated 12/18/22, are essentially unchanged on the current examination. There is no evidence of quantitatively significant increased FDG uptake within the context of the left lower posterior lung nodule. Abdomen/Pelvis: Normal physiologic distribution of the radiopharmaceutical is apparent in the hepatic and splenic parenchyma, both renal units, bladder and visualized intestinal tract. Diffuse radiopharmaceutical concentration is noted in all four quadrants of the abdomen and pelvis. Pertinent abdomen and pelvis CT findings are as follows. Otherwise, the previously defined morphologic-anatomic changes described on the prior FDG PET-CT report dated 12/18/22, are essentially unchanged on the current examination. Skeletal: Degenerative changes are noted in the cervical, thoracic and lumbar spine. PET/PET/CT Tumor Base -Thigh Init IMPRESSION: 1. NEGATIVE EXAMINATION. There is no definitive quantitative scintigraphic evidence of viable neoplasm. 2. Metabolic, morphologic stability may be ensured in the nonglucose avid left lower lobe parenchymal density with repeat FDG PET CT imaging or CT of the thorax in 6-9 months if clinically indicated. Electronic Signature Juan Melissa D.O. Accurate Quantification of SUVs for this report are calculated using the exclusive [employer], (U.S. Patent No. [phone] [id number] 983 B2 [phone] [place] patent [phone] [id number] ). Standardization and correction of the FDG SUV metric exclusively available with [employer] intellectual property, allow for vendor non-specific objective quantitative sequential FDG PET-CT comparison and otherwise unobtainable optimization of the sensitivity and specificity of the examination. [email or web address] Electronically Signed: Juan Melissa DO at 23:28 EDT ,
== END | disposition home or self-care (01) ==
LOC: ONC 09:52
PROVIDERS: PCP Family Medicine; Referring Provider Nurse Practitioner Acute Care; Visit Provider Nurse Practitioner Acute Care
DX: R91.1 Solitary pulmonary nodule (principal); R91.8 Other nonspecific abnormal finding of lung field
CPT/HCPCS: 78815; A9552

== ENCOUNTER → 2023-07-25 | Outpatient (CLI) | payer MEDICARE, MEDICAID, SELFPAY | END | disposition home or self-care (01) | LOC: BIMLAB 15:23 | PROVIDERS: PCP Family Medicine; Referring Provider Physician Assistant; Visit Provider Physician Assistant | DX: Z00.00 Encounter for general adult medical examination without abnormal findings (principal) ==

== ENCOUNTER → 2023-07-30 | Outpatient (CLI) | payer MEDICARE, MEDICAID, SELFPAY | END | disposition home or self-care (01) | LOC: LABSPEC 10:00 | PROVIDERS: PCP Family Medicine; Referring Provider Physician Assistant; Visit Provider Physician Assistant | DX: R19.7 Diarrhea, unspecified (principal); K58.9 Irritable bowel syndrome, unspecified | CPT/HCPCS: 87177; 87209; 87493; 87506 ==

== ENCOUNTER → 2023-09-24 | Outpatient (CLI) | payer MEDICARE, SELFPAY ==
[2023-09-24 12:05] LABS: Absolute Lymphocyte Count 2.17 X10^3/uL (0.83-4.51); Absolute Neutrophil Count 5.8 X10^3/uL (2.0-7.7); Basophil# 0.03 X10^3/uL; Basophil% 0.3 % (0-1); Eosinophil# 0.16 X10^3/uL; Eosinophils% 1.8 % (0-5); Hematocrit 45.9 % (40-54); Hemoglobin 14.5 g/dL (13.0-16.5); Lymphocyte # 2.17 X10^3/ul (0.83-4.51); Lymphocyte % 24.8 % (19-41); Mean Corp Hgb Conc 31.6 g/dL (32-36); Mean Corpuscular Hgb 27.8 pg (27.0-32.0); Mean Corpuscular Volume 88.1 fL (80-94); Mean Platelet Vol. 10.5 fl (6.2-12.0); Monocyte# 0.56 X10^3/uL; Monocyte% 6.4 % (0-10); NRBC Flagged by Analyzer 0 % (0-5); Neutrophil # 5.79 X10^3/uL (2.7-7.7); Neutrophil % 66.4 % (47-70); Platelet Count 254 K/mm3 (150-450); RBC Distribution Width CV 14.6 % (11.6-14.6); RBC Distribution Width SD 47.2 fl (35.1-43.9); Red Blood Count 5.21 M/mm3 (4.6-6.2); White Blood Count 8.7 K/mm3 (4.4-11.0)
[2023-09-24 12:15] LABS: ALB/GLOB Ratio 1.1 RATIO (0.9-2.4); AST(SGOT) 22 U/L (15-37); Alanine Aminotransfer ALT/SGPT 33 U/L (16-61); Albumin, Serum 3.8 g/dL (3.2-5.0); Alkaline Phosphatase 74 U/L (45-117); Anion Gap 5 (5-15); BUN 23 mg/dL (7-18); BUN/Creat Ratio 15.5 RATIO (10-20); Calcium,Total 9.2 mg/dL (8.5-10.1); Chloride 106 mmol/L (98-107); Creatinine, Serum 1.48 mg/dL (0.70-1.30); EST Glomerular Filtration Rate 50 mL/min (>60); Est Glom Filt Rate - Afr Amer 60 mL/min (>60); Globulin 3.6 g/dL (2.2-4.2); Glucose 104 mg/dL (74-106); Potassium 4.5 mmol/L (3.5-5.1); Protein, Total 7.4 g/dL (6.4-8.2); Sodium Level 141 mmol/L (136-145)
== END | disposition home or self-care (01) ==
LOC: BIMLAB 11:17
PROVIDERS: PCP Family Medicine; Referring Provider Physician Assistant; Visit Provider Physician Assistant
DX: N18.30 Chronic kidney disease, stage 3 unspecified (principal)
CPT/HCPCS: 36415; 80053; 85025

== ENCOUNTER → 2023-10-08 | Outpatient (CLI) | payer MEDICARE, SELFPAY ==
--- NOTE | 2023-10-08 14:19 | RAD_ITS ---
STUDY: X-RAY - LEFT FOOT CLINICAL: Male, 72 years old. Pain. TECHNIQUE: 3 views of the left foot. COMPARISON: None. FINDINGS: Normal talus, calcaneus, and tarsal bones. Normal visualized subtalar, talonavicular, calcaneocuboid, tarsal and tarsometatarsal articulations. Normal metatarsi. Normal metatarsophalangeal joint of the great toe. Normal tibial and fibular sesamoid bones. Normal interphalangeal joint of the great toe. Normal phalanges of the great toe. Normal second through fifth metatarsophalangeal joints. Normal interphalangeal joints and phalanges of the lesser toes. The soft tissue structures are unremarkable. There is no demonstrated fracture. RAD/Foot min 3 Views IMPRESSION: Normal x-ray examination of the left foot. Electronically Signed: William Chau MD at 14:43 EDT ,
--- NOTE | 2023-10-08 14:20 | RAD_ITS ---
STUDY: X-RAY - LEFT ANKLE REASON FOR EXAM: Male, 72 years old. Pain. TECHNIQUE: 3 views of the left ankle. COMPARISON: None. FINDINGS: Normal visualized distal tibia and fibula. Normal medial and lateral malleoli. Normal tibiotalar articulation and ankle mortise. Normal visualized talus and calcaneus. The visualized subtalar, talonavicular, calcaneocuboid and tarsal articulations are normal. There is no demonstrated fracture. There is mild soft tissue swelling overlying the lateral ankle. RAD/Ankle min 3 Views IMPRESSION: Mild soft tissue swelling overlying the lateral ankle. No demonstrated fracture. Electronically Signed: William Chau MD at 14:47 EDT ,
== END | disposition home or self-care (01) ==
LOC: MTRAD 14:19
PROVIDERS: PCP Family Medicine; Referring Provider Physician Assistant; Visit Provider Physician Assistant
DX: R52 Pain, unspecified (principal)
CPT/HCPCS: 73610; 73630

== ENCOUNTER → 2023-12-02 | Outpatient (CLI) | payer MEDICARE, SELFPAY ==
--- NOTE | 2023-12-02 15:29 | CT_ITS ---
HISTORY: nodule. TECHNIQUE: CT of the chest was performed after the intravenous administration of 100 mL Isovue-370. Coronal and sagittal reformatted images. Individualized dose optimization techniques were used for this CT. 853 images. COMPARISON: 07/02/2023, 12/18/2022, and 11/19/2022. FINDINGS: CENTRAL AIRWAYS: Patent. LUNGS: Mild paraseptal emphysema. 11 mm lobulated left lower lobe nodule, unchanged in size from PET-CT 07/02/2023 and 12/18/2022 and slightly smaller compared to CT 11/19/2022. Calcified granuloma in the right middle lobe PLEURA: No pneumothorax or significant pleural effusion. HEART/PERICARDIUM: Heart within normal limits in size with coronary artery disease. No pericardial effusion. AORTA/VESSELS: No thoracic aortic aneurysm or dissection flap. Mild atherosclerosis. No large central filling defect identified in the pulmonary arteries. MEDIASTINUM/ALISON: No pathologically enlarged lymph nodes. Small calcified subcarinal lymph nodes. OSSEOUS STRUCTURES: Spinal osteophytes present. UPPER ABDOMEN: Hepatic steatosis. Calcified splenic granulomas. CT/Chest WITH Contrast IMPRESSION: No significant interval change in size of 11 mm left lower lobe pulmonary nodule. Lung-RADS category 3: Recommend 6 month follow-up low dose CT. Electronically Signed: Yamilka Gill MD at 10:00 EDT ,
[2023-12-02 16:00] LABS: CREATININE FINGERSTICK 1.4 mg/dL (0.70-1.30)
== END | disposition home or self-care (01) ==
LOC: CT 15:27
PROVIDERS: PCP Family Medicine; Referring Provider Nurse Practitioner Acute Care; Visit Provider Nurse Practitioner Acute Care
DX: Z01.812 Encounter for preprocedural laboratory examination (principal)
CPT/HCPCS: 71260; Q9967

== ENCOUNTER → 2023-12-17 | Outpatient (CLI) | payer MEDICARE, MEDICAID, SELFPAY ==
--- NOTE | 2023-12-17 13:27 | RAD_ITS ---
INDICATION: Metatarsalgia, right foot EXAMINATION/TECHNIQUE: X-RAY - RIGHT XR Foot Min 3 Views 3 VIEWS COMPARISON: No relevant prior comparison study available FINDINGS: SOFT TISSUES: No soft tissue swelling or gas. No radiopaque foreign body. BONES/JOINTS: Status post bunionectomy. No acute fracture. Probable old fracture of the head of the metacarpal. No evidence of dislocation. No sclerotic or destructive changes observed. RAD/Foot min 3 Views IMPRESSION: No demonstrated acute osseous changes. Electronically Signed: Kishan Gao MD at 13:42 EDT ,
[2023-12-17 15:46] LABS: Erythrocyte Sedimentation Rate 17 mm/hr (0-20)
[2023-12-17 15:59] LABS: Rheumatoid Factor < 10.0 IU/mL (<15); Uric Acid 6.8 mg/dL (3.5-7.2)
[2023-12-20 09:09] LABS: Anti-Nuclear Antibody Test Negative (.)
[2023-12-26 11:10] LABS: HLA B27 Negative (.)
== END | disposition home or self-care (01) ==
PROVIDERS: PCP Family Medicine; Referring Provider Podiatrist; Visit Provider Podiatrist
DX: M06.9 Rheumatoid arthritis, unspecified (principal); M77.41 Metatarsalgia, right foot
CPT/HCPCS: 36415; 73630; 81374; 84550; 85652; 86038; 86140; 86431

== ENCOUNTER → 2024-04-16 | Outpatient (CLI) | payer MEDICARE, SELFPAY ==
--- NOTE | 2024-04-16 15:59 | MRI_ITS ---
PROCEDURE: MRI lumbar spine without IV contrast REASON FOR EXAM: Pain, radiculopathy TECHNIQUE: Multisequence multiplanar MR images of the lumbar spine were obtained without the administration of intravenous contrast. COMPARISON: None. FINDINGS: Vertebral body heights are within normal limits. Negative for fracture or marrow replacement. Posterior fusion/decompression at L4-5. Minimal dextroscoliosis. Conus medullaris is intact and terminates at L1. Mild paraspinal muscle atrophy. Hyperintense T2 lesion within the left kidney measuring at least 4.6 cm. L1-2: No focal disc abnormality, spinal stenosis or foraminal narrowing. L2-3: Posterior disc bulge eccentric to the right. Mild bilateral facet arthrosis and ligamentum flavum hypertrophy. Moderate spinal stenosis. Mild left and mild/moderate right foraminal narrowing. L3-4: Posterior disc bulge. Moderate bilateral facet arthrosis. Mild lateral spinal stenosis. Moderate bilateral foraminal narrowing, greater on the right. L4-5: Minimal posterior disc osteophyte complex. No significant spinal stenosis. Moderate right foraminal narrowing. L5-S1: Posterior disc bulge with tiny central protrusion. Mild bilateral facet arthrosis. No significant spinal stenosis. Mild bilateral foraminal narrowing. MRI/Spine Lumbar (Routine) IMPRESSION: 1. Acquired moderate and mild spinal stenosis at L2-3 and L3-4 respectively. 2. Varying degrees of [id number] multilevel foraminal narrowing as above. 3. Posterior fusion/decompression at L4-5. 4. Probable left renal cyst. Recommend confirmation with ultrasound. One or more dose reduction techniques were used (e.g., Automated exposure contr ol, adjustment of the mA and/or kV according to patient size, use of iterative reconstruction technique). Reading Location: [facility]
== END | disposition home or self-care (01) ==
PROVIDERS: PCP Family Medicine; Referring Provider Student in an Organized Health Care Education/Training Program; Visit Provider Student in an Organized Health Care Education/Training Program
DX: M51.46 Schmorl's nodes, lumbar region (principal); Z98.1 Arthrodesis status
CPT/HCPCS: 72148

== ENCOUNTER → 2024-09-25 | Outpatient (CLI) | payer MEDICARE, SELFPAY | END | disposition home or self-care (01) | LOC: LABSPEC 10:47 | PROVIDERS: PCP Family Medicine; Referring Provider Nurse Practitioner Acute Care; Visit Provider Nurse Practitioner Acute Care | DX: J45.40 Moderate persistent asthma, uncomplicated (principal) | CPT/HCPCS: 87070; 87205 ==

== ENCOUNTER → 2024-09-28 | Outpatient (CLI) | payer MEDICARE, SELFPAY ==
[2024-09-28 10:34] LABS: Hematocrit 48.2 % (40-54); Hemoglobin 15.5 g/dL (13.0-16.5); Immature Granulocytes Count 0.010 X10^3/uL (0.0-0.0); Mean Corp Hgb Conc 32.2 g/dL (32-36); Mean Corpuscular Volume 87.3 fL (80-94); Mean Platelet Vol. 10.5 fl (6.2-12.0); NRBC Flagged by Analyzer 0 % (0-5); Platelet Count 231 K/mm3 (150-450); RBC Distribution Width CV 14.6 % (11.6-14.6); RBC Distribution Width SD 46.8 fl (35.1-43.9); Red Blood Count 5.52 M/mm3 (4.6-6.2); White Blood Count 8.5 K/mm3 (4.4-11.0)
== END | disposition home or self-care (01) ==
LOC: LAB 09:38
PROVIDERS: PCP Family Medicine; Referring Provider Nurse Practitioner Acute Care; Visit Provider Nurse Practitioner Acute Care
DX: J30.9 Allergic rhinitis, unspecified (principal)
CPT/HCPCS: 36415; 82785; 85025; 86003; 86037; 86606

== ENCOUNTER 2024-10-22 07:06 | Outpatient (CLI) | payer MEDICARE, SELFPAY ==
--- OUTSIDE RECORDS SUMMARY | 2024-10-22 07:09 | XMS RPT_ITS | CCD ---
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 Shane Das Primary Care Provider Dr. Shane Das Referring Provider ALEX Barillas Attending Provider Unavailab Dr. William Gillis Attending Provider Dr. Porfirio Kauffman Attending Provider Dr. Shane Das Attending Provider Dr. Shane Das Primary Care Provider Dr. Shane Das Attending Provider Dr. Shane Das Referring Provider ALEX Valentin Attending Provider Dr. Shane Das Other Provider Dr. Mack Das Attending Provider Dr. Shane Das Primary Care Provider [phone] Dr. Shane Das Referring Provider ALEX Montero Attending Provider Dr. Shane Das Attending Provider Dr. Dieudonne Reeder Attending Provider Dr. Shane Das Primary Care Provider [phone] Dr. Shane Das Referring Provider Leonardo BIODIESEL ENGINE SPECIALIST, BIODIESEL ENGINE SPECIALIST-C Antonette Attending Provider Dr. Shane Das Attending Provider Dr. Shane Das DO Primary Care Provider [phone] Thiago PANG, Dr. Shane Perez Attending Provider [phone] [phone] Thiago PANG, Dr. Shane Perez Referring Provider [phone] [phone] Amalia Short Attending Provider [phone]) Jamari WINTER, Dr. Monroy Attending Provider 1(330) Amalia Short Referring Provider 1([facility]) 20 Thiago PANG, Dr. Shane Perez Primary Care Provider Thiago PANG, Dr. Shane Perez Attending Provider [phone] [phone] Thiago PANG, Dr. Shane Perez Referring Provider [phone] ) Radha BIODIESEL ENGINE SPECIALIST-CYari Attending Provider [phone] Thiago PANG, Dr. Shane Perez Primary Care Provider Thiago PANG, Dr. Shane Perez Referring Provider 1([facility] )516 Leonardo BIODIESEL ENGINE SPECIALIST-C, Antonette Attending Provider Patterson BIODIESEL ENGINE SPECIALIST-C, Antonette Referring Provider Brown, Shane R Primary Care Unavailable Patterson BIODIESEL ENGINE SPECIALIST, Antonette Referring Unavailable Patterson BIODIESEL ENGINE SPECIALIST, Antonette Attending Unavailable Patterson BIODIESEL ENGINE SPECIALIST, Antonette Referring Unavailable Patterson BIODIESEL ENGINE SPECIALIST, Atnonette Attending Unavailable Brown, Shane R Primary Care Unavailable Horn, Fidelia Referring Unavailable Horn, Fidelia Attending Unavailable Brown, Shane R Primary Care Unavailable Brown, Shane R Primary Care Unavailable Amalia Ferris Referring Unavailable Amalia Ferris Attending Unavailable Brown, Shane R Referring Unavailable Patterson BIODIESEL ENGINE SPECIALIST, Antonette Attending Unavailable Brown, Shane R Primary Care Unavailable Brown, Shane R Referring Unavailable Brown, Shane R Attending Unavailable Brown, Shane R Primary Care Unavailable Brown, Shane R Primary Care Unavailable Brown, Shane R Referring Unavailable Brown, Shane R Attending Unavailable Brown, Shane R Primary Care Unavailable Brown, Shane R Referring Unavailable Amalia Ferris Attending Unavailable Brown, Shane R Primary Care Unavailable Porfirio Kauffman Attending Unavailable Brown, Shane R Primary Care Unavailable Brown, Shane R Referring Unavailable Amalia Ferris Attending Unavailable Brown, Shane R Primary Care Unavailable Brown, Shane R Referring Unavailable Brown, Shane R Attending Unavailable Brown, Shane R Primary Care Unavailable Brown, Shane R Referring Unavailable Ungerer, Yari Attending Unavailable BrownTarunShane R Primary Care Unavailable Antonette Patterson NP Attending Unavailable Brown, Shane R Referring Unavailable Brown, Shane R Primary Care Unavailable Brown, Shane R Referring Unavailable Antonette Patterson NP Attending Unavailable Tarun Daslas R Primary Care Unavailable Antonette Patterson NP Referring Unavailable Antonette Patterson NP Attending Unavailable Allergies Allergy Classification Reported Allergen(s) Allergy Type Date of Onset Reaction(s) Facility (11 sources) fexofenadine Drug Allergy 2 Hives [facility] (12 sources) Grass pollen; Translations: [grass pollen] Allergy to substance 2 Watery eyes,Sneezing, Runny nose, [facility] (11 sources) Sertraline Drug Allergy 2 suicidal thoughts [facility] (8 sources) Pollen Allergy to substance 3 Congestion [facility] (1 source) fexofenadine Drug Allergy 5 [facility] (1 source) Pollen Drug allergy (disorder) 5 [facility] (1 source) Sertraline Drug Allergy 5 [facility] Medications Current Medications Medication Drug Class(es) Dates Sig (Normalized) Sig (Original) acetaminophen 325 mg oral capsule (4 sources) Start: 09-25-2024 take 1 capsule by mouth once as needed Acetaminophen 325 mg capsule Active 325 mg PO ONCE as needed September 25, 2024 12:00am Budesonide-Formotero l (20 sources) Corticosteroid, beta2-Adrenergic Agonist Start: 10-07-2024 Budesonide-Formoter ol (Symbicort) 160-4.5 mcg/actuation HFA aerosol inhaler Active 2 NMA INHALATION TWICE A DAY 10.2 October 07, 2024 1:17pm Start: 08-27-2023 End: 10-07-2024 Budesonide-Formoterol (Symbi bharati) 160-4.5 mcg/actuation HFA aerosol inhaler Discontinued 2 NMA INHALATION TWICE A DAY 10.2 August 27, 2023 12:21pm October 07, 2024 1:18pm Start: 08-27-2023 Budesonide-For moterol (Symbicort) 160-4.5 mcg/actuation HFA aerosol inhaler Active 2 NMA INHALATION TWICE A DAY 10.2 11 August 27, 2023 12:21pm Start: 08-27-2023 Budesonide-For moterol (Symbicort) 160-4.5 mcg/actuation HFA aerosol inhaler Active 2 NMA INHALATION TWICE A DAY 10.2 August 27, 2023 12:21pm Start: 05-07-2023 End: 08-27-2023 Budesonide-Formoterol (Symbi bharati) 160-4.5 mcg/actuation HFA aerosol inhaler Discontinued 2 NMA INHALATION TWICE A DAY 10.2 3 May 07, 2023 10:53am August 27, 2023 12:21pm Start: 05-07-2023 End: 08-27-2023 Budesonide-Formoterol (Symbi bharati) 160-4.5 mcg/actuation HFA aerosol inhaler Discontinued 2 NMA INHALATION TWICE A DAY 10.2 May 07, 2023 10:53am August 27, 2023 12:21pm Start: 05-07-2023 take 1 puff(s) by in halation twice daily Budesonide-Formoterol (Symbicort) 160-4.5 mcg/actuation HFA aerosol inhaler Active 2 PUFF INHALATION TWICE A DAY 10.2 May 07, 2023 10:53am Start: 12-05-2022 End: 05-07-2023 Budesonide-Formoterol (Symbi bharati) 160-4.5 mcg/actuation HFA aerosol inhaler Discontinued 2 NMA INHALATION TWICE A DAY 10.2 3 December 05, 2022 12:00am May 07, 2023 10:32am Start: 12-05-2022 End: 05-07-2023 Budesonide-Formoterol (Symbi bharati) 160-4.5 mcg/actuation HFA aerosol inhaler Discontinued 2 NMA INHALATION TWICE A DAY 10.2 December 05, 2022 12:00am May 07, 2023 10:32am Start: 12-05-2022 End: 05-07-2023 take 1 puff(s) by inhalation twice daily Budesonide-Formoterol (Symbicort) 160-4.5 mcg/actuation HFA aerosol inhaler Discontinued 2 PUFF INHALATION TWICE A DAY 10.2 December 05, 2022 12:00am May 07, 2023 10:32am Start: 12-05-2022 take 1 puff(s) by in halation twice daily Budesonide-Formoterol (Symbicort) 160-4.5 mcg/actuation HFA aerosol inhaler Active 2 PUFF INHALATION TWICE A DAY 10.2 December 05, 2022 12:00am Start: 04-13-2011 take 2 puff(s) by in halation twice daily budesonide-formoterol (SYMBICORT) 80-4.5 mcg/actuation INHALATION inhaler Indications: COPD (chronic obstructive pulmonary disease) (HCC) Inhale 2 Puffs as instructed twice daily. 1 Inhaler 3 04/13/2011 Active Comment on above: Inhale 2 Puffs as in structed twice daily. cetirizine hydrochloride 10 mg oral tablet (4 sources) Histamine-1 Receptor Antagonist Start: take 1 tablet by mouth once daily as needed Cetirizine 10 mg tablet Active 10 mg PO DAILY as needed for allergy symptoms 90 3 September 25, 2024 12:00am Allergic rhinitis Allergic rhinitis, unspecified 2 ml dupilumab 150 mg/ml auto-injector (2 sources) Interleukin-4 Receptor alpha Antagonist Start: Dupilumab (Dupixent Pen) 300 mg/2 mL pen injector Active 600 mg SC ONCE 4 0 October 15, 2024 12:00am Eosinophilic asthma Asthma Eosinophilic asthma Unspecified asthma, uncomplicated as a single dose Start: 10-15-2024 Dupilumab (Dup ixent Pen) 300 mg/2 mL pen injector Active 300 mg SC every 2 weeks 2 October 15, 2024 12:00am Eosinophilic asthma Asthma Eosinophilic asthma Unspecified asthma, uncomplicated fluticasone propionate 0.05 mg/actuat metered dose nasal spray (17 sources) Corticosteroid Start: 01-28-2024 take 50 ug nasal route once daily Fluticasone Propionate (24 Hour Allergy Relief) 50 mcg/actuation spray,suspension Active 1 NMA INTRANASAL daily January 28, 2024 1:00am administer into each nostril Start: 01-17-2018 End: 03-01-2022 take 50 ug nasal route once daily Fluticasone Propionate (Flonase Allergy Relief) 50 mcg/actuation spray,suspension Discontinued 2 NMA INTRANASAL DAILY 15.8 1 January 17, 2018 1:00am March 01, 2022 12:00pm administer into each nostril Start: 01-17-2018 End: 03-01-2022 take 1 spray(s) nasal route once daily Fluticasone Propionate (Flonase Allergy Relief) 50 mcg/actuation spray,suspension Discontinued 2 SPRAY INTRANASAL DAILY 15.8 January 17, 2018 1:00am March 01, 2022 12:00pm administer into each nostril meloxicam 15 mg oral tablet (20 sources) Nonsteroidal Anti-inflammatory Drug Start: 07-30-2024 End: 09-29-2024 take 1 tablet by mouth once daily Meloxicam 15 mg tablet Active 15 mg PO DAILY 30 September 29, 2024 10:12am Low back pain Low back pain, unspecified Start: 06-11-2023 End: 12-24-2023 take 1 tablet by mouth once daily Meloxicam 15 mg tablet Discontinued 15 mg PO DAILY 30 2 June 11, 2023 12:00am December 24, 2023 3:45pm Start: 07-17-2022 End: 12-24-2023 Meloxicam 15 mg tablet Disco ntinued NMA PO July 17, 2022 12:00am December 24, 2023 3:45pm Start: 04-26-2020 End: 11-07-2022 take 1 tablet by mouth once daily Meloxicam 15 mg tablet Discontinued 15 mg PO DAILY 90 February 14, 2022 10:05am May 17, 2022 1:13pm Start: 03-04-2017 End: 01-20-2019 take 1 tablet by mouth once daily Meloxicam 15 mg tablet Discontinued 15 mg PO DAILY 90 September 26, 2018 3:37pm January 20, 2019 1:35pm Multivitamin preparation (5 sources) Start: 2017 Multivitamin A ctive 1 EACH PO DAILY 2017 11:23am Start: 2017 End: 03-01-2022 Multivitamin Discontinued 1 EACH PO DAILY 2017 12:00am March 01, 2022 11:58am predniSONE 10 mg oral tablet (13 sources) Start: 10-15-2024 Prednisone 10 mg tablet Active 10 mg PO daily 30 12 October 15, 2024 12:00am October 26, 2024 12:00am 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 for three days, then 3 tabs for three days, then 2 tabs for three days, then 1 tab for 3 days Start: 12-24-2023 End: 01-28-2024 Prednisone 5 mg tablet Disco ntinued mg PO December 24, 2023 1:00am January 28, 2024 12:17pm Start: 10-08-2023 End: 12-24-2023 take 1 tablet by mouth twice daily Prednisone 20 mg tablet Discontinued 20 mg PO TWICE A DAY 10 October 08, 2023 12:00am December 24, 2023 3:44pm Vit C-Zinc Citrate-Elderberr y (BuildCircle) 45-3.75-50 mg tablet,chewable (10 sources) Start: 05-17-2022 Vit C-Zinc Cit rate-Elderberry (BuildCircle) 45-3.75-50 mg tablet,chewable Active {tbl} PO May 17, 2022 12:00am Start: 05-17-2022 Vit C-Zinc Cit rate-Elderberry (BuildCircle) 45-3.75-50 mg tablet,chewable Active TABLET PO May 17, 2022 12:00am Completed/Discontinued Medications Medication Drug Class(es) Dates Sig (Normalized) Sig (Original) acetaminophen 500 mg / diphenhydrAMINE hydrochloride 25 mg oral tablet (11 sources) Histamine-1 Receptor Antagonist Start: 05-07-2023 End: 09-25-2024 Diphenhydramine-Ac etaminophen (Tylenol Pm Extra Strength) 25-500 mg tablet Discontinued 1 {tbl} PO AT BEDTIME as needed September 25, 2024 12:00am September 25, 2024 10:10am acetaminophen 325 mg / HYDROcodone bitartrate 5 mg oral tablet (20 sources) Opioid Agonist Start: 06-27-2021 End: 03-01-2022 Hydrocodone-Acetam inophen 5-325 mg tablet Discontinued 1 {tbl} PO AT BEDTIME as needed June 27, 2021 12:00am March 01, 2022 11:59am Start: 06-27-2021 End: 03-01-2022 take 1 tablet by mouth at bedtime Hydrocodone-Acetaminophen Discontinued 1 TABLET PO AT BEDTIME June 27, 2021 12:00am March 01, 2022 11:59am Start: 06-07-2021 End: 06-17-2021 Hydrocodone-Acetaminophen 5- 325 mg tablet Discontinued 1 {tbl} PO EVERY 6 HOURS as needed for pain 40 10 0 June 07, 2021 June 16, 2021 12:00am June 17, 2021 12:05am Herniated nucleus pulposus, L3-4 left Other intervertebral disc displacement, lumbar region Start: 06-07-2021 End: 06-17-2021 take 1 tablet by mouth every six hours Hydrocodone-Acetaminophen Discontinued 1 TABLET PO EVERY 6 HOURS 40 10 June 07, 2021 June 17, 2021 12:05am Albuterol Sulfate (12 sources) beta2-Adrenergic Agonist Start: 01-17-2018 End: 07-11-2018 take 1 puff(s) by inhalation every six hours Albuterol Sulfate (Ventolin Hfa) 90 mcg/actuation HFA aerosol inhaler Discontinued 2 PUFF INHALATION EVERY 6 HOURS 8 January 17, 2018 12:46pm July 11, 2018 9:16am Start: 01-17-2018 End: 07-11-2018 Albuterol Sulfate (Ventolin Hfa) 90 mcg/actuation HFA aerosol inhaler Discontinued 2 NMA INHALATION EVERY 6 HOURS as needed for shortness of breath or wheezing 8 January 17, 2018 1:00am July 11, 2018 9:16am Start: 01-17-2018 End: 07-11-2018 take 1 puff(s) by inhalation every six hours Albuterol Sulfate (Ventolin Hfa) 90 mcg/actuation HFA aerosol inhaler Discontinued 2 PUFF INHALATION EVERY 6 HOURS January 17, 2018 1:00am July 11, 2018 9:16am Start: 02-23-2011 take 1-2 puff(s) by inhalation every six hours as needed albuterol HFA (PROAIR HFA) 90 mcg/Actuation INHALATION inhaler Indications: Productive cough Inhale 1-2 Puffs as instructed every 6 hours as needed. 1 Inhaler 0 02/23/2011 Active Comment on above: Inhale 1-2 Puffs as instructed every 6 hours as needed. amoxicillin 400 mg chewable tablet (1 source) Penicillin-class Antibacterial take 1 tablet by mouth twice daily Amoxicillin 400 mg ORAL chewable tablet Take 400 mg by mouth twice daily. 0 Active Comment on above: Take 400 mg by mouth twice daily. amoxicillin 875 mg / clavulanate 125 mg oral tablet (20 sources) Penicillin-class Antibacterial Start: End: Amoxicillin-Pot Clavulanate 875-125 mg tablet Discontinued 1 {tbl} PO Q12H 20 September 14, 2024 12:00am September 25, 2024 10:09am Start: 07-17-2022 End: 10-23-2022 Amoxicillin-Pot Clavulanate 875-125 mg tablet Discontinued 1 {tbl} PO TWICE A DAY July 17, 2022 12:00am October 23, 2022 12:32pm Start: 07-17-2022 End: 10-23-2022 take 1 tablet by mouth twice daily Amoxicillin-Pot Clavulanate Discontinued 1 TABLET PO TWICE A DAY July 17, 2022 12:00am October 23, 2022 12:32pm Start: 09-02-2021 End: 03-01-2022 Amoxicillin-Pot Clavulanate 875-125 mg tablet Discontinued 1 {tbl} PO TWICE A DAY September 02, 2021 10:14am March 01, 2022 11:55am Start: 09-02-2021 End: 03-01-2022 take 1 tablet by mouth twice daily Amoxicillin-Pot Clavulanate Discontinued 1 TABLET PO TWICE A DAY September 02, 2021 10:14am March 01, 2022 11:55am Start: 04-15-2019 End: 11-24-2019 Amoxicillin-Pot Clavulanate (Augmentin) 875-125 mg tablet Discontinued 1 {tbl} PO TWICE A DAY April 15, 2019 1:00am November 24, 2019 11:31am Start: 09-19-2018 End: 09-30-2018 Amoxicillin-Pot Clavulanate (Augmentin) 875-125 mg tablet Discontinued 1 {tbl} PO Q12H 20 10 0 September 19, 2018 12:00am September 28, 2018 12:00am September 30, 2018 12:08am Acute sinusitis, unspecified Start: 05-29-2018 End: 07-11-2018 Amoxicillin-Pot Clavulanate 875-125 mg tablet Discontinued 1 {tbl} PO Q12H 42 0 May 29, 2018 12:00am July 11, 2018 9:16am Start: 05-29-2018 End: 07-11-2018 take 1 tablet by mouth every twelve hours Amoxicillin-Pot Clavulanate Discontinued 1 TABLET PO Q12H 42 May 29, 2018 12:00am July 11, 2018 9:16am Start: 02-01-2018 End: 02-24-2018 Amoxicillin-Pot Clavulanate (Augmentin) 875-125 mg tablet Discontinued 1 {tbl} PO Q12H 20 10 0 February 14, 2018 1:00am February 23, 2018 1:00am February 24, 2018 1:09am Acute sinusitis, unspecified Start: 09-25-2017 End: 11-06-2017 Amoxicillin-Pot Clavulanate (Augmentin) 875-125 mg tablet Discontinued 1 {tbl} PO TWICE A DAY 20 0 September 25, 2017 12:00am November 06, 2017 4:44pm ascorbic acid 500 mg oral capsule (11 sources) Vitamin C Start: 02-05-2019 End: 03-01-2022 Ascorbic Acid (Vitamin C) 50 0 mg capsule Discontinued mg PO February 05, 2019 1:00am March 01, 2022 12:01pm Start: 02-05-2019 End: 03-01-2022 Ascorbic Acid (Vitamin C) Di scontinued MG PO February 05, 2019 1:00am March 01, 2022 12:01pm azithromycin 250 mg oral tablet (20 sources) Macrolide Antimicrobial Start: 05-17-2022 End: 06-19-2022 Azithromycin (Zithromax Z-Deniz) 250 mg tablet Discontinued 0 PO .COMPLEX 6 0 May 17, 2022 12:00am June 19, 2022 2:57pm For 250 mg dose pack: take 500 mg today (day 1), then 250 mg for 4 days (days 2-5) PO Start: 01-17-2018 End: 02-01-2018 Azithromycin 250 mg tablet D iscontinued 0 PO .COMPLEX 6 0 January 17, 2018 1:00am February 01, 2018 11:49am Take two tablets by mouth on day one then one tablet by mouth on days 2-5 Start: 01-17-2018 End: 02-01-2018 Azithromycin Discontinued 0 PO .COMPLEX January 17, 2018 1:00am February 01, 2018 11:49am Take two tablets by mouth on day one then one tablet by mouth on days 2-5 benazepril hydrochloride 20 mg oral tablet (20 sources) Angiotensin Converting Enzyme Inhibitor Start: 07-17-2022 End: 03-12-2023 Benazepril 20 mg tablet Discontinued NMA PO July 17, 2022 12:00am March 12, 2023 2:49pm Start: 03-04-2017 End: 08-10-2024 take 10 mg by mouth once daily Benazepril 20 mg tablet Discontinued 10 mg PO DAILY 45 January 01, 2024 9:16am August 10, 2024 10:59am Start: 03-04-2017 End: 06-25-2023 take 10 mg by mouth once daily Benazepril Active 10 MG PO DAILY 45 June 25, 2023 8:12am benazepril hydrochloride 20 mg / hydroCHLOROthiazide 25 mg oral tablet (1 source) Thiazide Diuretic, Angiotensin Converting Enzyme Inhibitor Start: 03-23-2011 take 1 tablet by mouth once daily Benazepril-Hydrochlorothiazide 20-25 mg ORAL per tablet Indications: HTN (hypertension) Take 1 tablet by mouth once daily. 0 03/23/2011 Active Comment on above: Take 1 tablet by socorro th once daily. benzocaine 15 mg / menthol 2.6 mg oral lozenge (11 sources) Standardized Chemical Allergen Start: 02-13-2021 End: 03-01-2022 Benzocaine-Menthol 15-2.6 mg lozenge Discontinued 1 NMA MUCOUS MEM Q2H as needed for sore throat 16 February 13, 2021 1:00am March 01, 2022 12:01pm Start: 02-13-2021 End: 03-01-2022 Benzocaine-Menthol Discontin ued 1 LOZENGE MUCOUS MEM Q2H February 13, 2021 1:00am March 01, 2022 12:01pm benzonatate 200 mg oral capsule (11 sources) Non-narcotic Antitussive Start: 02-13-2021 End: 03-01-2022 Benzonatate 200 mg capsule Discontinued 200 mg PO 2 to 3 times per day as needed for cough 60 February 13, 2021 1:00am March 01, 2022 12:01pm celecoxib 100 mg oral capsule (11 sources) Nonsteroidal Anti-inflammatory Drug Start: 01-20-2019 End: 02-05-2019 take 1 capsule by mouth once daily Celecoxib 100 mg capsule Discontinued 100 mg PO DAILY January 20, 2019 1:00am February 05, 2019 2:10pm chlorpheniramine maleate Dextromethorphan HBr (10 sources) Start: 03-01-2022 End: 06-19-2022 chlorpheniramine maleate Dextromethorphan HBr Discontinued PO 4 to 6 times per day March 01, 2022 1:00am June 19, 2022 2:58pm Start: 03-01-2022 chlorphenirami ne maleate Dextromethorphan HBr Active PO 4 to 6 times per day March 01, 2022 1:00am citalopram 20 mg oral tablet (20 sources) Serotonin Reuptake Inhibitor Start: 03-11-2019 End: 03-01-2022 take 1 tablet by mouth once daily Citalopram 20 mg tablet Discontinued 20 mg PO DAILY 90 November 28, 2020 9:51am March 01, 2022 12:00pm cyclobenzaprine hydrochloride 10 mg oral tablet (20 sources) Muscle Relaxant Start: 05-29-2021 End: 03-01-2022 take 1 tablet by mouth every eight hours as needed for muscle spasms Cyclobenzaprine 10 mg tablet Discontinued 10 mg PO Q8H as needed for muscle spasm 30 May 29, 2021 12:00am March 01, 2022 12:00pm Start: 08-27-2018 End: 02-05-2019 take 1 tablet by mouth at bedtime as needed for muscle spasms Cyclobenzaprine 10 mg tablet Discontinued 10 mg PO BEDTIME as needed for muscle spasm August 27, 2018 12:00am February 05, 2019 2:09pm Start: 03-04-2017 End: 09-25-2017 take 1 tablet by mouth every eight hours as needed for pain Cyclobenzaprine 10 MG tablet Discontinued 10 mg PO EVERY 8 HOURS as needed for Pain March 04, 2017 1:00am September 25, 2017 2:08pm dexamethasone 6 mg oral tablet (10 sources) Corticosteroid Start: 04-07-2022 End: 05-17-2022 take 1 tablet by mouth once daily Dexamethasone 6 mg tablet Discontinued 6 mg PO DAILY 5 0 April 07, 2022 1:00am May 17, 2022 12:48pm dextromethorphan hydrobromide 10 mg / guaiFENesin 200 mg oral capsule (20 sources) Uncompetitive X-kpxbft-V-aspartat e Receptor Antagonist, Sigma-1 Agonist Start: 06-27-2021 End: 03-01-2022 Dextromethorphan-G uaifenesin (Coricidin Hbp Chest Sanjay-Cough) 10-200 mg capsule Discontinued 1 NMA PO ONCE as needed June 27, 2021 12:00am March 01, 2022 12:00pm Start: 05-13-2018 End: 05-29-2018 Dextromethorphan-Guaifenesin (Coricidin Hbp) 10-200 mg capsule Discontinued 1 NMA PO ONCE as needed May 13, 2018 12:00am May 29, 2018 1:44pm diazePAM 10 mg oral tablet (13 sources) Benzodiazepine Start: 03-11-2024 End: 03-12-2024 take 1 tablet by mouth every hour as needed Diazepam (Valium) 10 mg tablet Discontinued 10 mg PO .COMPLEX as needed for sedation 1 1 0 March 11, 2024 1:00am March 11, 2024 1:00am March 12, 2024 1:10am 10 mg orally one hour prior to MRI Start: 06-19-2023 End: 02-18-2024 take 1 tablet by mouth at bedtime as needed for anxiety Diazepam (Valium) 5 mg tablet Discontinued 5 mg PO AT BEDTIME as needed for anxiety 1 0 June 19, 2023 12:00am February 18, 2024 1:23pm to take 1/[address] scan Lb-Vtxbwfmthsxpa-Pu (2 sources) Start: 11-07-2022 End: 05-07-2023 Mw-Rdwxighqcchut-If Disconti nued ML PO November 07, 2022 12:00am May 07, 2023 10:32am Start: 11-07-2022 Dm-Acetaminoph en-Gg Active ML PO November 07, 2022 12:00am Rf-Prkfyvnxxslnb-Et liquid (6 sources) Start: 11-07-2022 End: 05-07-2023 Uj-Vjbalujlisdfb-Tx liquid Discontinued mL PO November 07, 2022 12:00am May 07, 2023 10:32am docusate sodium 100 mg oral capsule (10 sources) Start: 03-01-2022 End: 07-25-2023 take 1 capsule by mouth once daily as needed Docusate Sodium 100 mg capsule Discontinued 100 mg PO DAILY as needed March 01, 2022 1:00am July 25, 2023 2:59pm doxycycline hyclate 100 mg oral capsule (20 sources) Tetracycl ine-class Drug Start: 03-01-2022 End: 05-17-2022 take 1 capsule by mouth twice daily Doxycycline Hyclate 100 mg capsule Discontinued 100 mg PO TWICE A DAY 30 0 March 01, 2022 1:00am May 17, 2022 12:48pm Start: 05-21-2019 End: 11-24-2019 take 1 tablet by mouth twice daily Doxycycline Hyclate 100 mg tablet Discontinued 100 mg PO TWICE A DAY 14 0 May 21, 2019 12:00am November 24, 2019 11:31am Start: 04-11-2018 End: 04-21-2018 take 1 capsule by mouth twice daily Doxycycline Hyclate 100 mg capsule Discontinued 100 mg PO TWICE A DAY 20 10 0 April 11, 2018 4:26pm April 20, 2018 1:00am April 21, 2018 1:10am Acute sinusitis, unspecified FLUoxetine 10 mg oral capsule (11 sources) Serotonin Reuptake Inhibitor Start: 02-04-2019 End: 03-11-2019 take 1 capsule by mouth once daily Fluoxetine 10 mg capsule Discontinued 10 mg PO DAILY 10 3 February 04, 2019 1:00am March 11, 2019 12:40pm gabapentin 800 mg oral tablet (11 sources) Anti-epileptic Agent Start: 03-04-2017 End: 09-25-2017 take 1 tablet by mouth three times daily at mealtime Gabapentin 800 MG tablet Discontinued 800 mg PO 3 TIMES DAILY WITH MEALS March 04, 2017 1:00am September 25, 2017 2:09pm guaiFENesin 400 mg oral tablet (20 sources) Start: 05-07-2023 End: 07-25-2023 take 1 tablet by mouth every four hours Guaifenesin 400 mg tablet Discontinued 400 mg PO Q4H May 07, 2023 12:00am July 25, 2023 1:53pm Start: 03-01-2022 End: 06-19-2022 take 1 tablet by mouth once daily Guaifenesin 400 mg tablet Discontinued 400 mg PO DAILY March 01, 2022 1:00am June 19, 2022 2:57pm Start: 05-29-2018 End: 07-11-2018 take 1 tablet by mouth every twelve hours Guaifenesin 1,200 mg tablet extended release 12hr Discontinued 1200 mg PO Q12H 60 1 May 29, 2018 12:00am July 11, 2018 9:17am hydroCHLOROthiazide 25 mg oral tablet (20 sources) Thiazide Diuretic Start: 07-17-2022 End: 04-02-2023 Hydrochlorothiazide 25 mg tablet Discontinued NMA PO July 17, 2022 12:00am April 02, 2023 1:28pm Start: 03-04-2017 End: 05-07-2023 Hydrochlorothiazide 25 mg ta blet Discontinued 0 .ROUTE .COMPLEX 90 3 April 02, 2023 1:28pm May 07, 2023 10:45am TAKE 1 TABLET DAILY ibuprofen 400 mg oral tablet (11 sources) Nonsteroidal Anti-inflammatory Drug Start: 02-13-2021 End: 03-01-2022 take 400-800 mg by mouth every eight hours as needed for pain Ibuprofen 400 mg tablet Discontinued 400 - 800 mg PO Q8H as needed for fever or pain 60 0 February 13, 2021 1:00am March 01, 2022 11:59am HOLD MELOXICAM methylPREDNISolone 4 mg oral tablet (20 sources) Corticosteroid Start: 07-17-2022 End: 11-07-2022 take 1 tablet by mouth once Methylprednisolone (Medrol (Deniz)) 4 mg tablets,dose pack Discontinued 0 PO per package directions 21 July 17, 2022 12:00am November 07, 2022 1:31pm PO PER PKG DIR Start: 09-19-2018 End: 09-25-2018 take 1 tablet by mouth once Methylprednisolone (Medrol (Deniz)) 4 mg tablets,dose pack Discontinued 4 mg PO per package directions 21 5 0 September 19, 2018 12:00am September 23, 2018 12:00am September 25, 2018 12:07am Acute sinusitis, unspecified Start: 04-11-2018 End: 04-16-2018 take 1 tablet by mouth once Methylprednisolone (Medrol (Deniz)) 4 mg tablets,dose pack Discontinued 4 mg PO per package directions 21 5 0 April 11, 2018 1:00am April 15, 2018 1:00am April 16, 2018 1:07am Acute sinusitis, unspecified montelukast 10 mg oral tablet (20 sources) Leukotriene Receptor Antagonist Start: 07-11-2018 End: 03-01-2022 take 1 tablet by mouth once daily in the evening Montelukast (Singulair) 10 mg tablet Discontinued 10 mg PO EVERY EVENING 90 1 April 15, 2019 2:41pm March 01, 2022 11:59am Multivitamin 1 EACH tablet (6 sources) Start: 2017 End: 03-01-2022 Multivitamin 1 EACH tablet Discontinued 1 NMA PO DAILY 2017 12:00am March 01, 2022 11:58am ondansetron 4 mg oral tablet (11 sources) Serotonin-3 Receptor Antagonist Start: 01-29-2019 End: 02-03-2019 take 1 tablet by mouth three times daily as needed for nausea and vomiting Ondansetron Hcl 4 mg tablet Discontinued 4 mg PO THREE TIMES A DAY as needed for nausea and vomiting 6 5 0 January 29, 2019 1:00am February 02, 2019 1:00am February 03, 2019 1:09am pregabalin 75 mg oral capsule (20 sources) Start: 07-17-2022 End: 11-07-2022 Pregabalin 75 mg capsule Discontinued NMA PO July 17, 2022 12:00am November 07, 2022 1:32pm Start: 07-17-2022 End: 11-07-2022 Pregabalin Discontinued EACH PO July 17, 2022 12:00am November 07, 2022 1:32pm Start: 05-17-2022 End: 05-07-2023 take 1 capsule by mouth at bedtime Pregabalin 75 mg capsule Discontinued 75 mg PO AT BEDTIME 30 2 December 05, 2022 12:16pm May 07, 2023 10:32am Start: 03-01-2022 End: 05-17-2022 take 1 capsule by mouth at bedtime Pregabalin (Lyrica) 50 mg capsule Discontinued 50 mg PO AT BEDTIME 30 2 March 01, 2022 1:00am May 17, 2022 1:19pm prochlorperazine 5 mg oral tablet (20 sources) Phenothiazine Start: 02-03-2021 End: 03-01-2022 take 1 tablet by mouth twice daily as needed for nausea Prochlorperazine Maleate (Compazine) 5 mg tablet Discontinued 5 mg PO TWICE A DAY as needed for nausea 10 0 February 13, 2021 2:20pm March 01, 2022 11:58am sertraline 50 mg oral tablet (11 sources) Serotonin Reuptake Inhibitor Start: 01-20-2019 End: 02-04-2019 take 1 tablet by mouth once daily Sertraline 50 mg tablet Discontinued 50 mg PO DAILY 30 2 January 20, 2019 1:00am February 04, 2019 1:50pm sulfacetamide sodium 100 mg/ml ophthalmic solution (11 sources) Sulfonamide Antibacterial Start: 02-17-2018 End: 02-24-2018 Sulfacetamide Sodium (Bleph-10) 10 % drops Discontinued 1 NMA OPHTHALMIC Q3H 15 7 0 February 17, 2018 1:00am February 23, 2018 1:00am February 24, 2018 1:09am Start: 02-17-2018 End: 02-24-2018 Sulfacetamide Sodium (Bleph- 10) 10 % drops Discontinued 1 DRP OPHTHALMIC Q3H 15 7 February 17, 2018 1:00am February 24, 2018 1:09am tamsulosin hydrochloride 0.4 mg oral capsule (20 sources) alpha-Adrenergic Mile Start: 07-17-2022 End: 05-07-2023 Tamsulosin 0.4 mg capsule Discontinued NMA PO July 17, 2022 12:00am May 07, 2023 10:31am Start: 03-04-2017 End: 05-19-2024 take 1 capsule by mouth once daily Tamsulosin 0.4 mg capsule Discontinued 0 .ROUTE .COMPLEX 90 3 March 26, 2023 1:33pm May 19, 2024 10:36am TAKE 1 CAPSULE BY MOUTH ONCE DAILY tiotropium 0.018 mg inhalation powder (1 source) Anticholinergic Start: 02-23-2011 take 1 capsule by inhalation once daily tiotropium (SPIRIVA WITH HANDIHALER) 18 mcg INHALATION inhalation capsule Indications: Productive cough Inhale 1 capsule as instructed once daily. 30 capsule 0 02/23/2011 Active Comment on above: Inhale 1 capsule as instructed once daily. tiZANidine 2 mg oral tablet (11 sources) Central alpha-2 Adrenergic Agonist Start: 07-11-2018 End: 08-27-2018 take 1 tablet by mouth at bedtime as needed Tizanidine 2 mg tablet Discontinued 2 mg PO AT BEDTIME as needed for muscle spasticity 30 July 11, 2018 12:00am August 27, 2018 11:29am varenicline 1 mg oral tablet (20 sources) Partial Cholinergic Nicotinic Agonist Start: 01-21-2024 End: 09-25-2024 take 1 tablet by mouth twice daily, then take 1 tablet by mouth once Varenicline Tartrate (Chantix Continuing Box) 1 mg tablet Discontinued 1 mg PO TWICE A DAY 120 0 January 21, 2024 11:41am September 25, 2024 10:09am Start: 12-17-2022 End: 12-24-2023 take 1 tablet by mouth twice daily, then take 1 tablet by mouth once Varenicline Tartrate (Chantix Continuing Box) 1 mg tablet Discontinued 1 mg PO TWICE A DAY 120 July 03, 2023 9:35am December 24, 2023 3:45pm Varenicline (Chantix Starting Box) 0.5 mg (11)- 1 mg (42) tablets,dose pack (2 sources) Start: 11-07-2022 End: 12-17-2022 take 1 tablet by mouth once Varenicline (Chantix Starting Box) 0.5 mg (11)- 1 mg (42) tablets,dose pack Discontinued 0 PO per package directions 53 November 07, 2022 12:00am December 17, 2022 4:51pm PO PER PKG DIR Varenicline Tartrate (Chantix Starting Box) 0.5 mg (11)- 1 mg (42) tablets,dose pack (6 sources) Start: 11-07-2022 End: 12-17-2022 take 1 tablet by mouth once Varenicline Tartrate (Chantix Starting Box) 0.5 mg (11)- 1 mg (42) tablets,dose pack Discontinued 0 PO per package directions 53 November 07, 2022 12:00am December 17, 2022 4:51pm PO PER PKG DIR Start: 11-07-2022 End: 12-17-2022 take 1 tablet by mouth once Varenicline Tartrate (Camargo tix Starting Box) 0.5 mg (11)- 1 mg (42) tablets,dose pack Discontinued 0 PO per package directions 53 November 07, 2022 12:00am December 17, 2022 4:51pm PO PER PKG DIR zolpidem tartrate 10 mg oral tablet (11 sources) gamma-Aminobutyric Acid-ergic Agonist Start: 08-27-2018 End: 02-05-2019 take 1 tablet by mouth at bedtime Zolpidem 10 mg tablet Discontinued 10 mg PO AT BEDTIME 20 0 August 27, 2018 12:00am February 05, 2019 2:09pm Problems Active Problems Problem Classification Problem Date Documented Da te Episodic/Chronic Alcohol-related disorders (11 sources) Alcohol abuse; Translations: [Alcohol abuse, uncomplicated] 11-06-2017 Chronic Asthma (15 sources) Asthma; Translations: [Unspecified asthma, uncomplicated] Onset: 10-01-2024 12-05-2022 Chronic Asthma (1 source) Asthma; 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] Onset: 10-15-2024 Blindness and vision defects (11 sources) Disorder of vision; Translations: [Unspecified visual loss] 11-06-2017 Chronic Chronic kidney disease (6 sources) Chronic kidney disease stage 3; Translations: [Stage 3 chronic kidney disease] 09-24-2023 Chronic Chronic obstructive pulmonary disease and bronchiectasis (20 sources) Chronic obstructive lung disease; Translations: [Chronic obstructive pulmonary disease, unspecified] Onset: 03-23-2011 03-23-2011 Chronic Chronic ulcer of skin (11 sources) Ulcer; Translations: [Ulcerative lesion] 11-06-2017 Chronic Diseases of mouth; excluding dental (8 sources) Aphthous ulcer of mouth; Translations: [Recurrent oral aphthae] 09-19-2022 Episodic Essential hypertension (19 sources) Hypertensive disorder; Translations: [Essential (primary) hypertension] Onset: 03-23-2011 03-23-2011 Chronic Headache; including migraine (11 sources) Chronic headache disorder; Translations: [Chronic headache] 11-06-2017 Episodic Hyperplasia of prostate (6 sources) Benign prostatic hyperplasia; Translations: [Benign prostatic hyperplasia without lower urinary tract symptoms] 05-19-2024 Chronic Immunizations and screening for infectious disease (9 sources) Contact with and (suspected) exposure to other viral communicable diseases; Translations: [Contact with or suspected exposure to other viral communicable disease] 10-23-2022 Episodic Inflammation; infection of eye (except that caused by tuberculosis or sexually transmitteddisease) (11 sources) Conjunctivitis; Translations: [Unspecified conjunctivitis] 02-17-2018 Episodic Mood disorders (13 sources) Depressive disorder; Translations: [Depression] Chronic Osteoarthritis (11 sources) Arthritis; Translations: [Unspecified osteoarthritis, unspecified site] 11-06-2017 Chronic Other connective tissue disease (7 sources) Cramp; Translations: [Cramp and spasm] 02-06-2023 Episodic Other connective tissue disease (8 sources) History of lumbar fusion; Translations: [Arthrodesis status] 02-18-2024 Episodic Other ear and sense organ disorders (11 sources) Hearing disorder; Translations: [Unspecified hearing loss, unspecified ear] 11-06-2017 Chronic Other gastrointestinal disorders (11 sources) Irritable bowel syndrome; Translations: [Irritable bowel syndrome without diarrhea] 11-06-2017 Chronic Other gastrointestinal disorders (2 sources) Irritable bowel syndrome without diarrhea; Translations: [Irritable bowel syndrome] 05-17-2022 Chronic Other gastrointestinal disorders (6 sources) Diarrhea; Translations: [Diarrhea, unspecified] 07-25-2023 Episodic Other injuries and conditions due to external causes (11 sources) Fracture of bone; Translations: [Other injury of unspecified body region, initial encounter] 11-06-2017 Episodic Other lower respiratory disease (8 sources) Nodule of lung; Translations: [Solitary pulmonary nodule] 12-05-2022 Episodic Other lower respiratory disease (2 sources) Solitary pulmonary nodule; Translations: [Solitary pulmonary nodule] 12-05-2022 Episodic Other lower respiratory disease (2 sources) Asthma; 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] 10-15-2024 Episodic Comment on above: Total eosinophil cou nt 391 Other nervous system disorders (11 sources) Chronic pain; Translations: [Other chronic pain] 05-13-2018 Chronic Other nervous system disorders (3 sources) Other chronic pain; Translations: [Other chronic pain] 03-01-2022 Chronic Other non-traumatic joint disorders (11 sources) Hip pain; Translations: [Pain in left hip] 06-07-2021 Episodic Other upper respiratory disease (14 sources) Seasonal allergy; Translations: [Other seasonal allergic rhinitis] 11-06-2017 Chronic Other upper respiratory disease (6 sources) Allergic rhinitis; Translations: [Allergic rhinitis, unspecified] 07-25-2023 Chronic Other upper respiratory disease (1 source) Allergic rhinitis, unspecified; Translations: [Allergic rhinitis, unspecified] Onset: 10-01-2024 Chronic Other upper respiratory infections (11 sources) Chronic sinusitis; Translations: [Chronic sinusitis, unspecified] 08-27-2018 Chronic Other upper respiratory infections (20 sources) Acute sinusitis; Translations: [Acute sinusitis, unspecified] 02-14-2018 Episodic Otitis media and related conditions (11 sources) Otitis media; Translations: [Otitis media, unspecified, unspecified ear] 02-14-2018 Episodic Residual codes; unclassified (6 sources) Daytime hypersomnia; Translations: [Hypersomnia, unspecified] 08-20-2023 Chronic Residual codes; unclassified (12 sources) Tobacco user; Translations: [Tobacco use] 05-29-2018 Episodic Residual codes; unclassified (3 sources) Tobacco use; Translations: [Tobacco use disorder] 05-17-2022 Episodic Residual codes; unclassified (7 sources) Insomnia; Translations: [Insomnia, unspecified] 03-13-2023 Episodic Residual codes; unclassified (1 source) Insomnia, unspecified; Translations: [Insomnia, unspecified] 03-12-2023 Episodic Rheumatoid arthritis and related disease (1 source) Rheumatoid arthritis, unspecified; Translations: [Rheumatoid arthritis, unspecified] Onset: 05-12-2024 Chronic Spondylosis; intervertebral disc disorders; other back problems (20 sources) Degeneration of intervertebral disc; Translations: [Degeneration of intervertebral disc] Chronic Sprains and strains (20 sources) Low back strain; Translations: [Strain of muscle, fascia and tendon of lower back, initial encounter] Episodic Substance-related disorders (11 sources) Drug abuse; Translations: [Other psychoactive substance abuse, uncomplicated] 11-06-2017 Chronic Unclassified (1 source) M54.16 - Radiculopathy, lumbar region Unclassified (1 source) Low back pain, unspecified; Translations: [Low back pain, unspecified] Onset: 02-18-2024 Viral infection (20 sources) Disease caused by 2019-nCoV; Translations: [COVID-19] 04-07-2022 Episodic Comment on above: 01/30/2021. Pfizer C ovid vaccinated -booster 01/26/2021 Past or Other Problems Problem Classification Problem Date Documented Da te Episodic/Chronic Spondylosis; intervertebral disc disorders; other back problems (20 sources) Low back pain; Translations: [Low back pain] Onset: 04-29-2024 Episodic Results Test Name Value Interpretation Reference Range Facility Pulmonary Visit Reporton Pulmonary Visit Report [facility] [address] [place] [address] OFFICE VISIT Date of Service: 10/15/24 MR#: [id number] Acct: [id number] Name: MAGED SÁNCHEZ Rep #: [id number] : 1950 Provider: LAM Patterson Age/Sex: 73/M Location: [facility] [place] Status: Signed Assessment and Plan Assessment and Plan (1) Eosinophilic asthma: Status: Acute Comment: Total eosinophil count 391 Plan: Newly identified. The patient reports that he has had several exacerbations yearly for the past 2 to 3 years. Blood work indicates that he does have a high eosinophil count and would benefit from a biologic injection. I believe that Dupixent would be a good fit for him. We discussed this medication. The patient reports that he would not be able to give himself an injection at home. He does not have anyone that lives with him that would be able to give him an injection. He is injection initially would start here in the office for a 2-hour monitoring timeframe. He has follow-up injections would need to occur at an outpatient infusion center. We will begin the approval process today. (2) Asthma: Status: Chronic Qualifiers: Asthma severity: moderate Asthma persistence: persistent Asthma complication type: uncomplicated Qualified Code(s): J45.40 - Moderate persistent asthma, uncomplicated Plan: Deteriorated. This is his fourth exacerbation in 8 months. I am going to treat with systemic steroids. Continue Symbicort. He was able to provide a sputum today, we will send it for culture and sensitivity. If antibiotics are indicated, we will call him with instructions. Follow up in December as previously scheduled. (3) Seasonal allergies: Status: Chronic Plan: RAST test negative. We discussed the possibility of referral to an linotype worker for skin testing. At this time we are going to proceed by keeping him on cetirizine. We will follow up after results return to maximize his medications to prevent further exacerbations. Orders: Orders NIOX Today J82.83 - Eosinophilic asthma Culture, Sputum Today J82.83 - Eosinophilic asthma Medications: New dupilumab (Dupixent) as a single dose 600 mg (4 mL) subcut ONCE 4 mL 0RF J45.909 - Unspecified asthma, uncomplicated, J82.83 - Eosinophilic asthma dupilumab (Dupixent) 300 mg (2 mL) subcut Q2W 2 mL 11RF J45.909 - Unspecified asthma, uncomplicated, J82.83 - Eosinophilic asthma prednisone take 4 tabs for three days, then 3 tabs for three days, then 2 tabs for three days, then 1 tab for 3 days 10 mg PO QDAY 30 tabs 0RF 12 days J82.83 - Eosinophilic asthma Plan Details Additional Comments: This note was generated with Cellyation software. It may contain incorrect words, spelling, and punctuation that were not noted in checking the note before signing. HPI 3 wk fu Chief Complaint: Test results HPI Comments Details: This patient presents to the office today to discuss test results. He is ambulatory and on room air. He has not recently been seen in the ED or urgent care for any respiratory illness. He has not required any additional antibiotics or prednisone since last office visit. The patient reports that typically 2 or 3 times per year he ends up with bronchitis and requires an antibiotic and/or prednisone. He reports that prednisone improves his breathing quality and makes him feel like he is 18 years old again. He is compliant with use of Symbicort 2 puffs twice daily. He does report rinsing his mouth out after each use. He denies any medication side effect such as sore throat or thrush. He has not recently been utilizing albuterol. If you recall, he has a greater than [id number] smoking history. He was a 1 pack/day smoker up until November 2022. He is currently smoking approximately 3 cigarettes/day. He denies any difficulty with shortness of breath. He is experiencing a cough that is sometimes productive of thick brown colored sputum, he denies any kang hemoptysis. He has been experiencing wheezing, chest tightness and congestion. He reports sinus congestion and sinus drainage. He denies any palpitations or chest pain. He also denies any fever, chills or body aches. Test results personally reviewed with the patient: Laboratories reviewed and recorded in the supplemental info section. Intake Vital Signs 09/25/24 09:49 10/15/24 08:23 Height 5 ft 9 in 5 ft 9 in Weight: 218 lb 221 lb BMI 32.1 32.6 BP 148/84 H 188/84 H Blood Pressure Location Lt brachial Lt radial Position Sitting Sitting Respiration 18 18 Pulse 75 74 Pulse Source Monitor Monitor Temp 97.4 F L 97.4 F L Temperature Source Temporal Artery Temporal Artery Pulse Oximetry (%) 94 93 Oxygen Delivery Method room air room air Comment Took bp meds8:30-9a. 1st bp 189/84 Intake V (more content not included)... Normal [facility] Allergen, Mini-Raston 2024 A. ALTERNATA <0.10 Normal Class 0 [facility] Comment on above: Performed By: #### L 3500.3600, L3300.1200, L100.0100, L3200.1600, L5500.0300 #### [facility] [address] [place], [address] BERMUDA GRASS <0.10 Normal Class 0 [facility] Comment on above: Performed By: #### L 3500.3600, L3300.1200, L100.0100, L3200.1600, L5500.0300 #### [facility] [address] [place], [address] [place], [place] <0.10 Normal Class 0 [facility] Comment on above: Performed By: #### L 3500.3600, L3300.1200, L100.0100, L3200.1600, L5500.0300 #### [facility] [address] [place], [address] CAT HAIR/DANDER <0.10 Normal Class 0 [facility] Comment on above: Performed By: #### L 3500.3600, L3300.1200, L100.0100, L3200.1600, L5500.0300 #### [facility] [address] [place], [address] COMMENT Comment Normal . [facility] Comment on above: Result Comment: Tyrell cheek of Specific IgE Class Description of Class ----- < 0.10 0 Negative 0.10 - 0.31 0/I Equivocal/Low 0.32 - 0.55 I Low 0.56 - 1.40 II Moderate 1.41 - 3.90 III High 3.91 - 19.00 IV Very High 19.01 - 100.00 V Very High >100.00 Very High Performed By: #### L 3500.3600, L3300.1200, L100.0100, L3200.1600, L5500.0300 #### [facility] [address] [place], [address] D FARINAE MITE <0.10 Normal Class 0 [facility] Comment on above: Performed By: #### L 3500.3600, L3300.1200, L100.0100, L3200.1600, L5500.0300 #### [facility] [address] [place], [address] D PTERONYSSINUS <0.10 Normal Class 0 [facility] Comment on above: Performed By: #### L 3500.3600, L3300.1200, L100.0100, L3200.1600, L5500.0300 #### [facility] [address] [place], [address] DOG EPITHELIA <0.10 Normal Class 0 [facility] Comment on above: Performed By: #### L 3500.3600, L3300.1200, L100.0100, L3200.1600, L5500.0300 #### [facility] [address] [place], [address] ELM,AMER WHITE <0.10 Normal Class 0 [facility] Comment on above: Performed By: #### L 3500.3600, L3300.1200, L100.0100, L3200.1600, L5500.0300 #### [facility] [address] [place], [place], [id number] Mouse Urine <0.10 Normal Class 0 [facility] Comment on above: Result Comment: Perf ormed at: [facility] [address] [id number] [place]aser: Lokesh Stevenson MD, Phone: [phone] Performed By: #### L 3500.3600, L3300.1200, L100.0100, L3200.1600, L5500.0300 #### [facility] [address] [place], [place], [id number] OAK, WHITE <0.10 Normal Class 0 [facility] Comment on above: Performed By: #### L 3500.3600, L3300.1200, L100.0100, L3200.1600, L5500.0300 #### [facility] [address] [place], [address] PLANTAIN,ENGLSH <0.10 Normal Class 0 [facility] Comment on above: Performed By: #### L 3500.3600, L3300.1200, L100.0100, L3200.1600, L5500.0300 #### [facility] [address] [place], [address] RAGWEED SH/COM <0.10 Normal Class 0 [facility] Comment on above: Performed By: #### L 3500.3600, L3300.1200, L100.0100, L3200.1600, L5500.0300 #### [facility] [address] [place], [address] ANCAon 10-02-2024 Atypical pANCA <1:20 Normal Neg:<1:20 [facility] Comment on above: Result Comment: The atypical pANCA pattern has been observed in a significant percentage of patients with ulcerative colitis, primary sclerosing cholangitis and autoimmune hepatitis. Performed By: #### L 3500.3600, L3300.1200, L100.0100, L3200.1600, L5500.0300 #### [facility] [address] [place], [address] Cytoplasmic Ab <1:20 Normal Neg:<1:20 [facility] Comment on above: Performed By: #### L 3500.3600, L3300.1200, L100.0100, L3200.1600, L5500.0300 #### [facility] [address] [place], [address] Perinuclear Ab. <1:20 Normal Neg:<1:20 [facility] Comment on above: Result Comment: The presence of positive fluorescence exhibiting P-ANCA or C-ANCA patterns alone is not specific for the diagnosis of Renu's Granulomatosis (WG) or microscopic polyangiitis. Decisions about treatment should not be based solely on ANCA IFA results. The International ANCA Group Consensus recommends follow up testing of positive sera with both NM- 3 and MPO-ANCA enzyme immunoassays. As many as 5% serum samples are positive only by EIA. Ref. AM J Clin Pathol 1999;111:507-513. Performed By: #### L 3500.3600, L3300.1200, L100.0100, L3200.1600, L5500.0300 #### [facility] [address] [place], [address] Aspergillus Antibodieson Asp. flavus Negative Normal Neg:<1:1 [facility] Comment on above: Performed By: #### L 3500.3600, L3300.1200, L100.0100, L3200.1600, L5500.0300 #### [facility] [address] [place], [address] Asp. fumigatus Negative Normal Neg:<1:1 [facility] Comment on above: Performed By: #### L 3500.3600, L3300.1200, L100.0100, L3200.1600, L5500.0300 #### [facility] [address] [place], [address] Asp. niger Negative Normal Neg:<1:1 [facility] Comment on above: Performed By: #### L 3500.3600, L3300.1200, L100.0100, L3200.1600, L5500.0300 #### [facility] Laboratory [address] [place], [place], [address] Immunoglobulin Alex 5 IMMUNOGLOB E QN 28 IU/mL Normal 6-495 [facility] Comment on above: Result Comment: Perf ormed at: [facility] [id number] Tar Chaser: Gilmer Otto PhD, Phone: [phone] Performed at: [facility] [address] [id number] Tar Chaser: Lokesh Stevenson MD, Phone: [phone] Performed By: #### L 3500.3600, L3300.1200, L100.0100, L3200.1600, L5500.0300 #### [facility] Laboratory [address] [place], [place], [address] Absolute lymphocyte countOrd ered By: Antonette Patterson on 09-28-2024 Lymphocytes Auto (Unsp spec) [#/Vol] 3.08 10*3/uL 0.83-4.51 [facility] Absolute neutrophil countOrd ered By: Antonette Patterson on 09-28-2024 Neutrophils (Bld) [#/Vol] 4.6 10*3/uL 2.0-7.7 [facility] Automated lymphocyte count a s percentage of total leukocytesOrdered By: Antonette Patterson on 09-28-2024 Lymphocytes/100 WBC Auto (Unsp spec) 36.3 % 19-41 [facility] Basophil percentageOrdered B y: Antonette Patterson on 09-28-2024 Basophils/100 WBC (Bld) 0.2 % 0-1 [facility] CBC W/Diff, Automatedon 09-18 Absolute Lymph 3.08 X10 3/uL Normal 0.83-4.51 [facility] Comment on above: Performed By: #### L 3500.3600, L3300.1200, L100.0100, L3200.1600, L5500.0300 #### [facility] Laboratory [address] [place], [address] Absolute Neut 4.6 X10 3/uL Normal 2.0-7.7 [facility] Comment on above: Performed By: #### L 3500.3600, L3300.1200, L100.0100, L3200.1600, L5500.0300 #### [facility] Laboratory [address] [place], [address] Basophils/100 WBC (Bld) 0.2 % Normal 0-1 [facility] Comment on above: Performed By: #### L 3500.3600, L3300.1200, L100.0100, L3200.1600, L5500.0300 #### [facility] Laboratory [address] [place], [address] Eosinophils/100 WBC (Bld) 4.6 % Normal 0-5 [facility] Comment on above: Performed By: #### L 3500.3600, L3300.1200, L100.0100, L3200.1600, L5500.0300 #### [facility] Laboratory [address] [place], [address] Erythrocyte distribution width (RBC) [Ratio] 14.6 % Normal 11.6-14.6 [facility] Comment on above: Performed By: #### L 3500.3600, L3300.1200, L100.0100, L3200.1600, L5500.0300 #### [facility] Laboratory [address] [place], [address] Hematocrit (Bld) [Volume fraction] 48.2 % Normal 40-54 [facility] Comment on above: Performed By: #### L 3500.3600, L3300.1200, L100.0100, L3200.1600, L5500.0300 #### [facility] Laboratory [address] [place], [address] Hemoglobin (Bld) [Mass/Vol] 15.5 g/dL Normal 13.0-16.5 [facility] Comment on above: Performed By: #### L 3500.3600, L3300.1200, L100.0100, L3200.1600, L5500.0300 #### [facility] Laboratory [address] [place], [address] IG% 0.100 Normal 0.0-0.9 [facility] Comment on above: Result Comment: IG% - Immature Granulocytes (promyelocytes, myelocytes and metamyelocytes) > 1% indicates that a LEFT SHIFT is Present. Performed By: #### L 3500.3600, L3300.1200, L100.0100, L3200.1600, L5500.0300 #### [facility] Laboratory [address] [place], [address] Lymphocytes/100 WBC (Bld) 36.3 % Normal 19-41 [facility] Comment on above: Performed By: #### L 3500.3600, L3300.1200, L100.0100, L3200.1600, L5500.0300 #### [facility] Laboratory [address] [place], [address] MCH (RBC) [Entitic mass] 28.1 pg Normal 27.0-32.0 [facility] Comment on above: Performed By: #### L 3500.3600, L3300.1200, L100.0100, L3200.1600, L5500.0300 #### [facility] Laboratory [address] [place], [address] MCHC (RBC) [Mass/Vol] 32.2 g/dL Normal 32-36 [facility] Comment on above: Performed By: #### L 3500.3600, L3300.1200, L100.0100, L3200.1600, L5500.0300 #### [facility] Laboratory [address] [place], [address] MCV (RBC) [Entitic vol] 87.3 fL Normal 80-94 [facility] Comment on above: Performed By: #### L 3500.3600, L3300.1200, L100.0100, L3200.1600, L5500.0300 #### [facility] Laboratory [address] [place], [address] Monocytes/100 WBC (Bld) 4.8 % Normal 0-10 [facility] Comment on above: Performed By: #### L 3500.3600, L3300.1200, L100.0100, L3200.1600, L5500.0300 #### [facility] [address] [place], [address] Neutrophils/100 WBC (Bld) 54.0 % Normal 47-70 [facility] Comment on above: Performed By: #### L 3500.3600, L3300.1200, L100.0100, L3200.1600, L5500.0300 #### [facility] Laboratory [address] [place], [address] Nucleated RBC (Bld) [#/Vol] 0 10*3/uL Normal 0-5 [facility] Comment on above: Performed By: #### L 3500.3600, L3300.1200, L100.0100, L3200.1600, L5500.0300 #### [facility] Laboratory [address] [place], [address] Platelet mean volume (Bld) [Entitic vol] 10.5 fL Normal 6.2-12.0 [facility] Comment on above: Performed By: #### L 3500.3600, L3300.1200, L100.0100, L3200.1600, L5500.0300 #### [facility] Laboratory [address] [place], [address] Platelets (Bld) [#/Vol] 231 10*3/uL Normal 150-450 [facility] Comment on above: Performed By: #### L 3500.3600, L3300.1200, L100.0100, L3200.1600, L5500.0300 #### [facility] Laboratory [address] [place], [address] RBC (Bld) [#/Vol] 5.52 10*6/uL Normal 4.6-6.2 [facility] Comment on above: Performed By: #### L 3500.3600, L3300.1200, L100.0100, L3200.1600, L5500.0300 #### [facility] Laboratory [address] [place], [address] RDW SD 46.8 fl High 35.1-43.9 [facility] Comment on above: Performed By: #### L 3500.3600, L3300.1200, L100.0100, L3200.1600, L5500.0300 #### [facility] Laboratory [address] [place], [address] WBC (Bld) [#/Vol] 8.5 10*3/uL Normal 4.4-11.0 [facility] Comment on above: Performed By: #### L 3500.3600, L3300.1200, L100.0100, L3200.1600, L5500.0300 #### [facility] Laboratory [address] [place], [address] Eosinophil percentageOrdered By: Antonette Patterson on 09-28-2024 Eosinophils/100 WBC (Bld) 4.6 % 0-5 [facility] Erythrocyte distribution wid th ratioOrdered By: Antonette Patterson on 09-28-2024 Erythrocyte distribution width (RBC) [Ratio] 14.6 % 11.6-14.6 [facility] Erythrocyte distribution wid th standard deviationOrdered By: Antonette Patterson on 09-28-2024 Erythrocyte distribution width (RBC) [Ratio] 46.8 fl High 35.1-43.9 [facility] Hematocrit Auto (Bld) [Volum e fraction]Ordered By: Antonette Patterson on 09-28-2024 Hematocrit (Bld) [Volume fraction] 48.2 % 40-54 [facility] Hemoglobin measurementOrdere d By: Antonette Patterson on 09-28-2024 Hemoglobin (Bld) [Mass/Vol] 15.5 g/dL 13.0-16.5 [facility] IgEOrdered By: Antonette mina on 09-28-2024 IgE 28 IU/mL 6-495 [facility] Comment on above: Performed at: [facility] [address] [id number] Director: Gilmer Otto PhD, Phone: [phone] at: [facility] [id number] Director: Lokesh Stevenson MD, Phone: [phone] Immature granulocytes/100 WB C Auto (Bld)Ordered By: Antonette Patterson on 09-28-2024 Immature granulocytes/100 WBC (Bld) 0.100 % 0.0-0.9 [facility] Comment on above: IG% - Immature Granu locytes (promyelocytes, myelocytes and metamyelocytes) > 1% indicates that a LEFT SHIFT is Present. Laboratory - Miscellaneous t estsOrdered By: Antonette Patterson on 09-28-2024 Service comment (Unsp spec) [Interp] Comment . [facility] Comment on above: Levels of Specific I gE Class Description of Class ----- < 0.10 0 Negative 0.10 - 0.31 0/I Equivocal/Low 0.32 - 0.55 I Low 0.56 - 1.40 II Moderate 1.41 - 3.90 III High 3.91 - 19.00 IV Very High 19.01 - 100.00 V Very High >100.00 Very High MCV (mean corpuscular volume ) determinationOrdered By: Antonette Patterson on 09-28-2024 MCV (RBC) [Entitic vol] 87.3 fL 80-94 [facility] Mean corpuscular hemoglobin (MCH) determinationOrdered By: Antonette Patterson on 09-28-2024 MCH (RBC) [Entitic mass] 28.1 pg 27.0-32.0 [facility] Mean corpuscular hemoglobin concentration (MCHC) determinationOrdered By: Antonette Patterson on 09-28-2024 MCHC (RBC) [Mass/Vol] 32.2 g/dL 32-36 [facility] Mean platelet volume determi nationOrdered By: Antonette Patterson on 09-28-2024 Platelet mean volume (Bld) [Entitic vol] 10.5 fL 6.2-12.0 [facility] Monocyte percentageOrdered B y: Antonette Patterson on 09-28-2024 Monocytes/100 WBC (Bld) 4.8 % 0-10 [facility] Neutrophil percentageOrdered By: Antonette Patterson on 09-28-2024 Neutrophils/100 WBC (Bld) 54.0 % 47-70 [facility] Nucleated red blood cell per centageOrdered By: Antonette Patterson on 09-28-2024 Nucleated RBC/100 WBC (Bld) [Ratio] 0 % 0-5 [facility] Platelet countOrdered By: Karla Patterson on 09-28-2024 Platelets (Bld) [#/Vol] 231 10*3/uL 150-450 [facility] RBC Auto (Bld) [#/Vol]Ordere d By: Antonette Patterson on 09-28-2024 RBC (Bld) [#/Vol] 5.52 10*6/uL 4.6-6.2 [facility] Serum Aspergillus flavus ant ibody detection by immunodiffusionOrdered By: Antonette Patterson on 09-28-2024 A. flavus Ab Immune diff Ql (S) Negative Neg:<1:1 [facility] Serum Aspergillus fumigatus antibody detection by immunodiffusionOrdered By: Antonette Patterson on 09-28-2024 A. fumigatus Ab Immune diff Ql (S) Negative Neg:<1:1 [facility] Serum Aspergillus niger anti body detection by immunodiffusionOrdered By: Antonette Patterson on 09-28-2024 A. niger Ab Immune diff Ql (S) Negative Neg:<1:1 [facility] Serum B[place] grass IgE anti body assay (units/volume)Ordered By: Antonette Patterson on 09-28-2024 B[place] grass IgE Qn (S) <0.10 kU/L Class 0 [facility] Serum house dust mi te IgE antibody assay (units/volume)Ordered By: Antonette Patterson on 09-28-2024 house dust mite IgE Qn (S) <0.10 kU/L Class 0 [facility] Serum [place] blue grass Ig E antibody assay (units/volume)Ordered By: Antonette Patterson on 09-28-2024 [place] blue grass IgE Qn (S) <0.10 kU/L Class 0 [facility] Serum cat dander IgE antibod y assay (units/volume)Ordered By: Antonette Patterson on 09-28-2024 Cat dander IgE Qn (S) <0.10 kU/L Class 0 [facility] Serum classic neutrophil cyt oplasmic antibody assay (units/volume)Ordered By: Antonette Patterson on 09-28-2024 Neutrophil cytoplasmic Ab.classic Qn (S) <1:20 titer Neg:<1:20 [facility] Serum dog epithelium IgE ant ibody assay (units/volume)Ordered By: Antonette Patterson on 09-28-2024 Dog epithelium IgE Qn (S) <0.10 kU/L Class 0 [facility] Serum perinuclear neutrophil cytoplasmic antibody titer by immunofluorescenceOrdered By: Antonette Patterson on 09-28-2024 Neutrophil cytoplasmic Ab.perinuclear IF (S) [Titer] <1:20 titer Neg:<1:20 [facility] Comment on above: The presence of posi tive fluorescence exhibiting P-ANCA orC-ANCA patterns alone is not specific for the diagnosis ofWegener's Granulomatosis (WG) or microscopic polyangiitis.Decisions about treatment should not be based solely onANCA IFA results. The International ANCA Group Consensusrecommends follow up testing of positive sera with both NM-3 and MPO-ANCA enzyme immunoassays. As many as 5% serumsamples are positive only by EIA. Ref. AM J Clin Etcwtb3526;111:507-513. Serum white elm IgE antibody assay (units/volume)Ordered By: Antonette Patterson on 09-28-2024 White [place]m IgE Qn (S) <0.10 kU/L Class 0 [facility] Serum white oak IgE antibody assay (units/volume)Ordered By: Antonette Patterson on 09-28-2024 [place] IgE Qn (S) <0.10 kU/L Class 0 [facility] White blood cell (WBC) count Ordered By: Antonette Patterson on 09-28-2024 WBC (Bld) [#/Vol] 8.5 10*3/uL 4.4-11.0 [facility] Respiratory Cultureon 2024 RESPC Mixed normal respira tory shaheen. No Streptococcus pneumoniae, beta-hemolytic Streptococcus or Staphylococcus aureus isolated. Normal [facility] Comment on above: Performed By: #### M 100.2400, M100.1999 ####[facility] [address] [place], [place], [address] Gram Stainon 09-25-2024 GS Acceptable Specimen? Yes (<25 Epithelial cells per/lpf) Gram Stain 1+ Epithelial cells 4+ Gram positive cocci 2+ Gram negative rods 2+ Gram positive rods Rare White Blood Cells Normal [facility] Comment on above: Performed By: #### M 100.2400, M100.1999 ####[facility] [address] [place], [place], [address] Gram stainOrdered By: Chase Patterson on 09-25-2024 Microscopic observation Gram stain Nom (Unsp spec) [facility] Microbial respiratory cultur eOrdered By: Antonette Patterson on 09-25-2024 Microorganism identified Cx Nom (Unsp spec) or Staphylococcus aureus isolated. [facility] Pulmonary Visit Reporton Pulmonary Visit Report [facility] [address] [place], [place] [address] OFFICE VISIT Date of Service: 09/25/24 MR#: [id number] Acct: [id number] Name: MAGED SÁNCHEZ Rep #: [id number] : 1950 Provider: LAM Patterson Age/Sex: 73/M Location: [facility] Status: Signed Assessment and Plan Assessment and Plan (1) Asthma: Status: Chronic Qualifiers: Asthma severity: moderate Asthma persistence: persistent Asthma complication type: uncomplicated Qualified Code(s): J45.40 - Moderate persistent asthma, uncomplicated Plan: Deteriorated. This is his 3rd exacerbation in 8 months. The last 2 required prednisone. NIOX today was in the suarez zone, but since there was no wheezing on exam today, I am not going to treat with systemic steroids. Continue Symbicort. He was able to provide a sputum today, we will send it for culture and sensitivity. I will need to keep in mind that he just finished Augmentin, which may skew test results. If antibiotics are indicated, we will call him with instructions. Follow up in 2 weeks. (2) Seasonal allergies: Status: Chronic Plan: Deteriorated. Adding a daily antihistamine. Testing for triggers, allergic asthma type and looking aspergillus. Test results are a send out and will take a week or so to return. He is going to work today, so he plans to have blood work drawn in a few days. We will follow up after results return to maximize his medications to prevent further exacerbations. Orders: Orders NIOX Today J45.40 - Moderate persistent asthma, uncomplicated Culture, Sputum Today J45.40 - Moderate persistent asthma, uncomplicated Allergen, Mini-Rast Today J30.9 - Allergic rhinitis, unspecified Aspergillus Antibodies Today J30.9 - Allergic rhinitis, unspecified CBC W/Diff, Automated Today J30.9 - Allergic rhinitis, unspecified Immunoglobulin E Today J30.9 - Allergic rhinitis, unspecified ANCA Today J30.9 - Allergic rhinitis, unspecified Medications: New cetirizine 10 mg PO DAILY PRN 90 tabs 3RF allergy symptoms J30.9 - Allergic rhinitis, unspecified Plan Details Additional Comments: This note was generated with [employer] dictation software. It may contain incorrect words, spelling, and punctuation that were not noted in checking the note before signing. Follow Up: 3 Weeks HPI Acute Sick Chief Complaint: cough HPI Comments Details: This patient presents to the office today for an acute visit complaining of cough. He is ambulatory and on room air. He was recently seen by his primary care doctor and diagnosed with a sinus infection. He was treated with a course of Augmentin. He reports that he continues to experience a productive cough of despite completing the antibiotics as prescribed. He also recalls having at least 2 other infections this year. He is compliant with use of Symbicort 2 puffs twice daily. He does report rinsing his mouth out after each use. He denies any medication side effect such as sore throat or thrush. He has not recently been utilizing albuterol. If you recall, he has a greater than 54-fjcc-lmke smoking history. He was a 1 pack/day smoker up until November 2022. He is currently smoking approximately 3 cigarettes/day. He denies any difficulty with shortness of breath. He is experiencing a cough that is sometimes productive of thick white, yellowish to brown colored sputum, he denies any hemoptysis. He has been experiencing wheezing, chest tightness and congestion. He denies any palpitations or chest pain. He also denies any fever, chills or body aches. Intake Vital Signs 09/14/24 12:09 09/25/24 09:49 Height 5 ft 9 in 5 ft 9 in Weight: 219 lb 8 oz 218 lb BMI 32.4 32.1 BP 160/94 H 148/84 H Blood Pressure Location Lt brachial Lt brachial Position Sitting Sitting Respiration 16 18 Pulse 74 75 Pulse Source Monitor Monitor Temp 97 F L 97.4 F L Temperature Source Temporal Artery Pulse Oximetry (%) 95 94 Oxygen Delivery Method room air room air Intake Visit Reasons: Acute Sick Chief Complaint: cold congestion University Administrative Assistant Required: No DME Vendor: N/a Accompanied by: Self Allergies grass pollen Allergy (Intermediate, Verified 09/25/24 10:08) Watery eyes,Sneezing, Runny nose, fexofenadine (From Yelena) Allergy (Verified 09/25/24 10:08) Hives pollen extracts Allergy (Verified 09/25/24 10:08) Congestion sertraline Adverse Reaction (Severe, Verified 09/25/24 10:08) suicidal thoughts Medications ???Medication ???Instructions ???Recorded ???Confirmed ???Type vitamin C 45 mg-zinc citrate 3.75 tab PO 05/17/22 09/25/24 History mg-elderberry 50 mg chewable tablet ([employer]) diphenhydramine 25 1 tab PO QHS PRN 05/07/23 09/25/24 History mg-acetaminophen 500 mg tablet (Tylenol (more content not included)... Normal [facility] Internal Medicine Office Vis iton 09-14-2024 Internal Medicine Office Visit [facility] [address] [place] [address] [place] [address] OFFICE VISIT Date of Service: 09/14/24 MR#: [id number] Acct: [id number] Name: MAGED SÁNCHEZ Rep #: [id number] : 1950 Provider: LAM smith Age/Sex: 73/M Location: [facility] Status: Signed Intake Vital Signs 05/19/24 10:12 09/14/24 12:09 Height 5 ft 9 in 5 ft 9 in Weight: 226 lb 8 oz 219 lb 8 oz BMI 33.4 32.4 BP 148/80 H 160/94 H Blood Pressure Location Lt brachial Lt brachial Position Sitting Sitting Respiration 20 H 16 Pulse 69 74 Pulse Source Monitor Monitor Temp 95.7 F L 97 F L Temp Source Temporal Temporal Pulse Oximetry (%) 96 95 Oxygen Delivery Method room air room air Intake Visit Reasons: Congestion / Upper Resp Chief Complaint: cold congestion University Administrative Assistant Required: No Accompanied by: Self Is patient in pain?: No Allergies grass pollen Allergy (Intermediate, Verified 09/14/24 12:23) Watery eyes,Sneezing, Runny nose, fexofenadine (From Yelena) Allergy (Verified 09/14/24 12:23) Hives pollen extracts Allergy (Verified 09/14/24 12:23) Congestion sertraline Adverse Reaction (Severe, Verified 09/14/24 12:23) suicidal thoughts Medications ???Medication ???Instructions ???Recorded ???Confirmed ???Type vitamin C 45 mg-zinc citrate 3.75 tab PO 05/17/22 09/14/24 History mg-elderberry 50 mg chewable tablet ([employer]) diphenhydramine 25 1 tab PO QHS PRN 05/07/23 09/14/24 History mg-acetaminophen 500 mg tablet (Tylenol PM Extra Strength) budesonide-formoterol HFA 160 2 puff inhalation BID #10.2 grams 08/27/23 09/14/24 Rx mcg-4.5 mcg/actuation aerosol inhaler (Symbicort) varenicline tartrate 1 mg tablet 1 mg PO BID #120 tabs 01/21/24 Rx (Chantix Continuing Month Box) fluticasone propionate 50 1 spray intranasal QDAY 01/28/24 0 09/14/24 History mcg/actuation nasal spray,suspension (24 Hour Allergy Relief) tamsulosin 0.4 mg capsule See Rx Instructions .Route 5 09/14/24 Rx .COMPLEX #90 caps meloxicam 15 mg tablet 15 mg PO DAILY #30 tabs 07/30/24 0 09/14/24 Rx benazepril 20 mg tablet 10 mg (1/2 x 20 mg) PO DAILY #45 0 08/10/24 09/14/24 Rx TABLETS amoxicillin 875 mg-potassium 1 tab PO Q12H #20 tabs 09/14/24 Rx clavulanate 125 mg tablet Have you fallen in the past year?: Yes (has fallen several times ) Nurse's Note: has fallen a lot has not fallen in the last month [facility] Medical History Sprain of left foot Strain of left Achilles tendon Left ankle sprain Contact with and (suspected) exposure to other viral communicable diseases Aphthous ulcer of tongue COPD (chronic obstructive pulmonary disease) Acute sinusitis, unspecified Chronic neck and back pain Difficulty balancing Diarrhea Knee pain Shoulder pain Hemorrhoid Stomach ulcer Hypertension COPD (chronic obstructive pulmonary disease) Lumbar radiculopathy Ulcer Vision problems IBS (irritable bowel syndrome) Hearing problem Chronic headaches Drug abuse Chronic bronchitis Bone fracture Back problem Arthritis Seasonal allergies Alcohol abuse History of foot fracture Chronic pain Hypertension Surgical History Hx of foot surgery Hx of spinal fusion History of colonoscopy History of esophagogastroduodenoscop y (EGD) History of tonsillectomy History of back surgery Family History Mother Heart disease Hypertension Osteoporosis CVA (cerebral vascular accident) Father Heart disease Hypertension CRANIAL ANEUY Sister Cancer kidney Hypertension Kidney disease Thyroid disorder Grandfather Alcoholism Grandmother Colon cancer Sister Cancer Social History Smoking Status: Former smoker pack-years: 50 Tobacco: How many years used: 50 second hand exposure: No alcohol intake: never substance use type: does not use what type of physical activity do you participate in: walking, running and weight training frequency: 1-2 times per week HPI HPI Chief Complaint: cold congestion Details: MAGED SÁNCHEZ, is a 73 M who presents to the office today for complaints of cough congestion times several days. States increase in shortness of breath. Patient with a history of COPD chronic bronchitis and allergies. Patient states he is not taking his Symbicort at this time. States he does have a cough that is productive for phlegm that is brown to yellow in color. Feels pain and pressure in his sinuses. Denies fever or chills. Denies wheezing. Denies chest pain denies nausea vomiting or diarrhea. Denies any recent sick contacts ROS (more content not included)... Normal [facility] Internal Medicine Office Vis itoisael 05-19-2024 Internal Medicine Office Visit [facility] [address] [place], [place] [address] OFFICE VISIT Date of Service: 05/19/24 MR#: [id number] Acct: [id number] Name: MAGED SÁNCHEZ Rep #: [id number] : 1950 Provider: Dr. Shane parra, DO Age/Sex: 73/M Location: [facility] Status: Signed Intake Vital Signs 04/23/24 10:18 05/19/24 10:12 Height 5 ft 9 in 5 ft 9 in Weight: 221 lb 4 oz 226 lb 8 oz BMI 32.6 33.4 BP 148/80 H Blood Pressure Location Lt brachial Position Sitting Respiration 20 H Pulse 69 Pulse Source Monitor Temp 95.7 F L Temp Source Temporal Pulse Oximetry (%) 96 Oxygen Delivery Method room air Intake Visit Reasons: FOLLOW UP Chief Complaint: follow up and cold University Administrative Assistant Required: No Accompanied by: Self Is patient in pain?: No Allergies grass pollen Allergy (Intermediate, Verified 05/19/24 10:08) Watery eyes,Sneezing, Runny nose, fexofenadine (From Yelena) Allergy (Verified 05/19/24 10:08) Hives pollen extracts Allergy (Verified 05/19/24 10:08) Congestion sertraline Adverse Reaction (Severe, Verified 05/19/24 10:08) suicidal thoughts Medications ???Medication ???Instructions ???Recorded ???Confirmed ???Type vitamin C 45 mg-zinc citrate 3.75 tab PO 05/17/22 05/19/24 History mg-elderberry 50 mg chewable tablet ([employer]) diphenhydramine 25 1 tab PO QHS PRN 05/07/23 05/19/24 History mg-acetaminophen 500 mg tablet (Tylenol PM Extra Strength) budesonide-formoterol HFA 160 2 puff inhalation BID #10.2 grams 08/27/23 05/19/24 Rx mcg-4.5 mcg/actuation aerosol inhaler (Symbicort) benazepril 20 mg tablet 10 mg (1/2 x 20 mg) PO DAILY #45 1 03/02/23 05/19/24 Rx TABLETS varenicline tartrate 1 mg tablet 1 mg PO BID #120 tabs 01/21/2403/14 Rx (Chantix Continuing Month Box) fluticasone propionate 50 1 spray intranasal QDAY 01/28/24 0 05/19/24 History mcg/actuation nasal spray,suspension (24 Hour Allergy Relief) tamsulosin 0.4 mg capsule See Rx Instructions .Route 5 05/19/24 Rx .COMPLEX #90 caps Have you fallen in the past year?: No Nurse's Note: follow up and c/o cold [facility] Medical History Sprain of left foot Strain of left Achilles tendon Left ankle sprain Contact with and (suspected) exposure to other viral communicable diseases Aphthous ulcer of tongue COPD (chronic obstructive pulmonary disease) Acute sinusitis, unspecified Chronic neck and back pain Difficulty balancing Diarrhea Knee pain Shoulder pain Hemorrhoid Stomach ulcer Hypertension COPD (chronic obstructive pulmonary disease) Lumbar radiculopathy Ulcer Vision problems IBS (irritable bowel syndrome) Hearing problem Chronic headaches Drug abuse Chronic bronchitis Bone fracture Back problem Arthritis Seasonal allergies Alcohol abuse History of foot fracture Chronic pain Hypertension Surgical History Hx of foot surgery Hx of spinal fusion History of colonoscopy History of esophagogastroduodenoscop y (EGD) History of tonsillectomy History of back surgery Family History Mother Heart disease Hypertension Osteoporosis CVA (cerebral vascular accident) Father Heart disease Hypertension CRANIAL ANEUY Sister Cancer kidney Hypertension Kidney disease Thyroid disorder Grandfather Alcoholism Grandmother Colon cancer Sister Cancer Social History Smoking Status: Former smoker pack-years: 50 Tobacco: How many years used: 50 second hand exposure: No alcohol intake: never substance use type: does not use what type of physical activity do you participate in: walking, running and weight training frequency: 1-2 times per week HPI HPI Chief Complaint: follow up and cold Details: MAGED SÁNCHEZ, is a 73 M who presents to the office today for complaints of chronic neck and back pain and he needs his tamsulosin filled for his urinary problems. He was recommended to have epidural shots based on an MRI of his lumbar spine. He was also asked to have a neck CT scan because of suspected cervical spinal stenosis but he remains asymptomatic so far his neck is concerned. He continues to be employed. 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 ROS Const Constitutional: No body ache, excessive sweating, fatigue, fever(s), frequent falls, headache(s), snoring, weakness, weight change, sleep problems or change in appetite Eyes Eyes: No blurry vision, change in vision, eye pain or Light sensitivity ENT ENT: No abnormal hearing (more content not included)... Normal [facility] Orthopedic Visit Reporton Orthopedic Visit Report [facility] [address] [place] [address] OFFICE VISIT Date of Service: 04/23/24 MR#: [id number] Acct: [id number] Name: MAGED SÁNCHEZ Rep #: [id number] : 1950 Provider: ALEX High Age/Sex: 73/M Location: [facility] Status: Signed Intake Vital Signs 02/18/24 12:14 04/23/24 10:18 Height 5 ft 9 in 5 ft 9 in Weight: 222 lb 221 lb 4 oz BMI 32.8 32.6 Intake Visit Reasons: LUMBAR SPINE Chief Complaint: lumbar spine Allergies grass pollen Allergy (Intermediate, Verified 04/23/24 10:15) Watery eyes,Sneezing, Runny nose, fexofenadine (From [facility]) Allergy (Verified 04/23/24 10:15) Hives pollen extracts Allergy (Verified 04/23/24 10:15) Congestion sertraline Adverse Reaction (Severe, Verified 04/23/24 10:15) suicidal thoughts Medications ???Medication ???Instructions ???Recorded ???Confirmed ???Type vitamin C 45 mg-zinc citrate 3.75 tab PO 05/17/22 04/23/24 History mg-elderberry 50 mg chewable tablet ([employer]) tamsulosin 0.4 mg capsule See Rx Instructions .Route 4 04/23/24 Rx .COMPLEX #90 caps diphenhydramine 25 1 tab PO QHS PRN 05/07/23 04/23/24 History mg-acetaminophen 500 mg tablet (Tylenol PM Extra Strength) budesonide-formoterol HFA 160 2 puff inhalation BID #10.2 grams 08/27/23 04/23/24 Rx mcg-4.5 mcg/actuation aerosol inhaler (Symbicort) benazepril 20 mg tablet 10 mg (1/2 x 20 mg) PO DAILY #45 1 03/02/23 04/23/24 Rx TABLETS varenicline tartrate 1 mg tablet 1 mg PO BID #120 tabs 01/21/2408/12 Rx (Chantix Continuing Month Box) fluticasone propionate 50 1 spray intranasal QDAY 01/28/24 0 04/23/24 History mcg/actuation nasal spray,suspension (24 Hour Allergy Relief) Have you fallen in the past year?: Yes [facility] Medical History Sprain of left foot Strain of left Achilles tendon Left ankle sprain Contact with and (suspected) exposure to other viral communicable diseases Aphthous ulcer of tongue COPD (chronic obstructive pulmonary disease) Acute sinusitis, unspecified Chronic neck and back pain Difficulty balancing Diarrhea Knee pain Shoulder pain Hemorrhoid Stomach ulcer Hypertension COPD (chronic obstructive pulmonary disease) Lumbar radiculopathy Ulcer Vision problems IBS (irritable bowel syndrome) Hearing problem Chronic headaches Drug abuse Chronic bronchitis Bone fracture Back problem Arthritis Seasonal allergies Alcohol abuse History of foot fracture Chronic pain Hypertension Surgical History Hx of foot surgery Hx of spinal fusion History of colonoscopy History of esophagogastroduodenoscop y (EGD) History of tonsillectomy History of back surgery Family History Mother Heart disease Hypertension Osteoporosis CVA (cerebral vascular accident) Father Heart disease Hypertension CRANIAL ANEUY Sister Cancer kidney Hypertension Kidney disease Thyroid disorder Grandfather Alcoholism Grandmother Colon cancer Sister Cancer Social History Smoking Status: Former smoker pack-years: 50 Tobacco: How many years used: 50 second hand exposure: No alcohol intake: never substance use type: does not use what type of physical activity do you participate in: walking, running and weight training frequency: 1-2 times per week HPI LUMBAR SPINE Details: This documentation accurately reflects the service provided and the decisions made by me, ALEX High 04/23/24 1011. Part of today???s visit was documented by Eloisa FERNANDEZ, acting as scribe. MAGED SÁNCHEZ is a 73 year old M here today for MRI review of his lumbar spine. Patient denies any changes. The patient does mention that he has had some increased issues with his balance as well as worsening dexterity over the last year. Says that he has dropped things out of his hand such as a plan, utensils, his phone. The patient continues to have a right sided leg pain that extends from his right groin to his lateral and anterior thigh down to the lateral calf. He describes this as a consistent burning sensation. HPI from 02/18/2024: MAGED SÁNCHEZ is a 73 year old M here today for lumbar spine pain. Pt. advises he has been experiencing low back pain for years. 2017 he had L4/5 fusion by monica Miller at [facility] which was helpful for a few years. He c/o pain from his right low back into his right groin to his lateral and anterior quad down his lateral leg to his right ankle. Says that this pain is similar to the pain that he had prior to his fusion in 2018. He describes it as a constant (more content not included)... Normal [facility] Magnetic resonance imaging r eportOrdered By: Sai Hale on 04-16-2024 Study report [facility] Imaging Services [address] [place] [address] Spine Lumbar (Routine) MR#: [id number] Acct: [id number] Name: MAGED SÁNCHEZ Rep #: [id number] : 1950 M 73 From: Dmitri Hale DO PCP: Dr. Shane Das, DO Status: RE G CLI Study:Spine Lumbar (Routine) Date of Exam: 04/16/24 Exam# [id number] Ordering Dr: Jamari Ferris PROCEDURE: MRI lumbar spine without IV contrast REASON FOR EXAM: Pain, radiculopathy TECHNIQUE: Multisequence multiplanar MR images of the lumbar spine were obtained without the administration of intravenous contrast. COMPARISON: None. FINDINGS: Vertebral body heights are within normal limits. Negative for fracture or marrow replacement. Posterior fusion/decompression at L4-5. Minimal dextroscoliosis. Conus medullaris is intact and terminates at L1. Mild paraspinal muscle atrophy. Hyperintense T2 lesion within the left kidney measuring at least 4.6 cm. L1-2: No focal disc abnormality, spinal stenosis or foraminal narrowing. L2-3: Posterior disc bulge eccentric to the right. Mild bilateral facet arthrosis and ligamentum flavum hypertrophy. Moderate spinal stenosis. Mild left and mild/moderate right foraminal narrowing. L3-4: Posterior disc bulge. Moderate bilateral facet arthrosis. Mild lateral spinal stenosis. Moderate bilateral foraminal narrowing, greater on the right. L4-5: Minimal posterior disc osteophyte complex. No significant spinal stenosis. Moderate right foraminal narrowing. L5-S1: Posterior disc bulge with tiny central protrusion. Mild bilateral facet arthrosis. No significant spinal stenosis. Mild bilateral foraminal narrowing. MRI/Spine Lumbar (Routine) IMPRESSION: 1. Acquired moderate and mild spinal stenosis at L2-3 and L3-4 respectively. 2. Varying degrees of [id number]-oy-mwspcfhj multilevel foraminal narrowing as above. 3. Posterior fusion/decompression at L4-5. 4. Probable left renal cyst. Recommend confirmation with ultrasound. One or more dose reduction techniques were used (e.g., Automated exposure control, adjustment of the mA and/or kV according to patient size, use of iterative reconstruction technique). Reading Location: [facility] CC: ALEX High; Dr. Shane Das, DO ~ Field Training Manager: Signed [facility] Spine Lumbar (Routine)on Spine Lumbar (Routine) [facility] Imaging Services [address] [place], [place] [id number] Spine Lumbar (Routine) MR#: [id number] Acct: [id number] Name: MAGED SÁNCHEZ Rep #: [id number] : 1950 M 73 From: Sai Montoya PCP: Dr. Shane Das, Status: REG CLI Study: Spine Lumbar (Routine) Date of Exam: 04/16/24 Exam# [id number] Ordering Dr: Amalia Ferris PROCEDURE: MRI lumbar spine without IV contrast REASON FOR EXAM: Pain, radiculopathy TECHNIQUE: Multisequence multiplanar MR images of the lumbar spine were obtained without the administration of intravenous contrast. COMPARISON: None. FINDINGS: Vertebral body heights are within normal limits. Negative for fracture or marrow replacement. Posterior fusion/decompression at L4-5. Minimal dextroscoliosis. Conus medullaris is intact and terminates at L1. Mild paraspinal muscle atrophy. Hyperintense T2 lesion within the left kidney measuring at least 4.6 cm. L1-2: No focal disc abnormality, spinal stenosis or foraminal narrowing. L2-3: Posterior disc bulge eccentric to the right. Mild bilateral facet arthrosis and ligamentum flavum hypertrophy. Moderate spinal stenosis. Mild left and mild/moderate right foraminal narrowing. L3-4: Posterior disc bulge. Moderate bilateral facet arthrosis. Mild lateral spinal stenosis. Moderate bilateral foraminal narrowing, greater on the right. L4-5: Minimal posterior disc osteophyte complex. No significant spinal stenosis. Moderate right foraminal narrowing. L5-S1: Posterior disc bulge with tiny central protrusion. Mild bilateral facet arthrosis. No significant spinal stenosis. Mild bilateral foraminal narrowing. MRI/Spine Lumbar (Routine) IMPRESSION: 1. Acquired moderate and mild spinal stenosis at L2-3 and L3-4 respectively. 2. Varying degrees of iwre-je-qeodshew multilevel foraminal narrowing as above. 3. Posterior fusion/decompression at L4-5. 4. Probable left renal cyst. Recommend confirmation with ultrasound. One or more dose reduction techniques were used (e.g., Automated exposure control, adjustment of the mA and/or kV according to patient size, use of iterative reconstruction technique). Reading Location: [facility] CC: ALEX High; Dr. Shane Das DO Field Training Manager: Signed Normal [facility] L/S Spine Min 4 Views01-20 L/S Spine Min 4 Views [facility] [address] [place] [address] L/S Spine Min 4 Views MR#: [id number] Acct: [id number] Name: MAGED SÁNCHEZ Rep #: [id number] : 1950 M 73 From: Juan Nguyen MD PCP: Dr. Shane Das, Status: DEP AMB Study: L/S Spine Min 4 Views Date of Exam: 02/18/24 Exam# [id number] Ordering Dr: Amalia Ferris [id number] STUDY: X-RAY - LUMBAR SPINE REASON FOR EXAM: Male, 73 years old. pain -- please do upright AP, LAT, flex/ext TECHNIQUE: 4 view(s) of the lumbar spine were obtained. COMPARISON: 09/18/2022 FINDINGS: Normal lumbar lordosis. There is no substantial scoliosis. Status post discectomy, interbody fusion, transpedicular fixation at L4/L5 with 2 mm of anterolisthesis of L4 on L5 which is unchanged on the flexion and extension views. Of There is multilevel endplate spondylosis of the lumbar vertebrae. Normal disc space heights. There is multilevel facet hypertrophy. The soft tissue structures are unremarkable. RAD/L/S Spine Min 4 Views IMPRESSION: No change from 09/18/2022. Electronically Signed: Juan Nguyen MD at 0:10 EST , CC: ALEX High; Dr. Shane Das, Field Training Manager: Signed Normal [facility] Orthopedic Visit Reporton Orthopedic Visit Report [facility] [address] [place] [address] OFFICE VISIT Date of Service: 02/18/24 MR#: [id number] Acct: [id number] Name: MAGED SÁNCHEZ Rep #: [id number] : 1950 Provider: ALEX High Age/Sex: 73/M Location: [facility] Status: Signed Intake Vital Signs 01/28/24 11:18 02/18/24 12:14 Height 5 ft 10 in 5 ft 9 in Weight: 227 lb 222 lb BMI 32.5 32.8 BP 130/78 H Blood Pressure Location Lt brachial Position Sitting Respiration 16 Pulse 80 Pulse Source Monitor Temp 97.6 F L Temp Source Temporal Pulse Oximetry (%) 98 Oxygen Delivery Method room air Intake Visit Reasons: LUMABR SPINE Chief Complaint: lumbar spine Is patient in pain?: Yes (low back ) Pain scale (1-10): 7 Allergies grass pollen Allergy (Intermediate, Verified 02/18/24 12:15) Watery eyes,Sneezing, Runny nose, fexofenadine (From Yelena) Allergy (Verified 02/18/24 12:15) Hives pollen extracts Allergy (Verified 02/18/24 12:15) Congestion sertraline Adverse Reaction (Severe, Verified 02/18/24 12:15) suicidal thoughts Medications ???Medication ???Instructions ???Recorded ???Confirmed ???Type vitamin C 45 mg-zinc citrate 3.75 tab PO 05/17/22 01/28/24 History mg-elderberry 50 mg chewable tablet ([employer]) tamsulosin 0.4 mg capsule See Rx Instructions .Route 03/26/23 01/28/24 Rx .COMPLEX #90 caps diphenhydramine 25 1 tab PO QHS PRN 05/07/23 01/28/24 History mg-acetaminophen 500 mg tablet (Tylenol PM Extra Strength) budesonide-formoterol HFA 160 2 puff inhalation BID #10.2 grams 08/27/23 01/28/24 Rx mcg-4.5 mcg/actuation aerosol inhaler (Symbicort) benazepril 20 mg tablet 10 mg (1/2 x 20 mg) PO DAILY #45 01/01/24 01/28/24 Rx TABLETS varenicline tartrate 1 mg tablet 1 mg PO BID #120 tabs 01/21/24 01/28/24 Rx (Chantix Continuing Month Box) fluticasone propionate 50 1 spray intranasal QDAY 01/28/24 01/28/24 History mcg/actuation nasal spray,suspension (24 Hour Allergy Relief) Have you fallen in the past year?: No PFSH Medical History Sprain of left foot Strain of left Achilles tendon Left ankle sprain Contact with and (suspected) exposure to other viral communicable diseases Aphthous ulcer of tongue COPD (chronic obstructive pulmonary disease) Acute sinusitis, unspecified Chronic neck and back pain Difficulty balancing Diarrhea Knee pain Shoulder pain Hemorrhoid Stomach ulcer Hypertension COPD (chronic obstructive pulmonary disease) Lumbar radiculopathy Ulcer Vision problems IBS (irritable bowel syndrome) Hearing problem Chronic headaches Drug abuse Chronic bronchitis Bone fracture Back problem Arthritis Seasonal allergies Alcohol abuse History of foot fracture Chronic pain Hypertension Surgical History Hx of foot surgery Hx of spinal fusion History of colonoscopy History of esophagogastroduodenoscop y (EGD) History of tonsillectomy History of back surgery Family History Mother Heart disease Hypertension Osteoporosis CVA (cerebral vascular accident) Father Heart disease Hypertension CRANIAL ANEUY Sister Cancer kidney Hypertension Kidney disease Thyroid disorder Grandfather Alcoholism Grandmother Colon cancer Sister Cancer Social History Smoking Status: Former smoker pack-years: 50 Tobacco: How many years used: 50 second hand exposure: No alcohol intake: never substance use type: does not use what type of physical activity do you participate in: walking, running and weight training frequency: 1-2 times per week HPI LUMABR SPINE Chief Complaint: lumbar spine Details: This documentation accurately reflects the service provided and the decisions made by me, ALEX High 02/18/24 1211. Part of today???s visit was documented by [ ], acting as scribe. MAGED SÁNCHEZ is a 73 year old M here today for lumbar spine pain. Pt. advises he has been experiencing low back pain for years. 2017 he had L4/5 fusion by monica Miller at which was helpful for a few years. He c/o pain from his right low back into his right groin to his lateral and anterior quad down his lateral leg to his right ankle. Says that this pain is similar to the pain that he had prior to his fusion in 2018. He describes it as a constant burning pain. He was previously seen by Dr. 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 He did do some aquatherapy which was helpful. He has not had any further treatment for his low back pain surgery or injections. He treats pain with Extra strength Tylenol and ice. (more content not included)... Normal [facility] Internal Medicine Office Vis estela 01-28-2024 Internal Medicine Office Visit [facility] [address] [place] [address] [place] [address] OFFICE VISIT Date of Service: 01/28/24 MR#: [id number] Acct: [id number] Name: MAGED SÁNCHEZ Rep #: [id number] : 1950 Provider: Dr. Shane parra, DO Age/Sex: 73/M Location: [facility] Status: Signed Intake Vital Signs 12/24/23 13:33 01/28/24 11:18 Height 5 ft 10 in 5 ft 10 in Weight: 228 lb 227 lb BMI 32.7 32.5 BP 158/74 H 130/78 H Blood Pressure Location Lt brachial Lt brachial Position Sitting Sitting Respiration 20 H 16 Pulse 75 80 Pulse Source Monitor Monitor Temp 97.5 F L 97.6 F L Temp Source Temporal Pulse Oximetry (%) 95 98 Oxygen Delivery Method room air room air Intake Visit Reasons: chk up Chief Complaint: check up [employer] Administrative [employer] Required: No Accompanied by: Self Is patient in pain?: Yes (left hip/ left foot) Pain scale (1-10): 10 Allergies grass pollen Allergy (Intermediate, Verified 01/28/24 11:11) Watery eyes,Sneezing, Runny nose, fexofenadine (From [facility]) Allergy (Verified 01/28/24 11:11) Hives pollen extracts Allergy (Verified 01/28/24 11:11) Congestion sertraline Adverse Reaction (Severe, Verified 01/28/24 11:11) suicidal thoughts Medications ???Medication ???Instructions ???Recorded ???Confirmed ???Type vitamin C 45 mg-zinc citrate 3.75 tab PO 05/17/22 01/28/24 History mg-elderberry 50 mg chewable tablet (Build[employer]le) tamsulosin 0.4 mg capsule See Rx Instructions .Route 03/26/23 01/28/24 Rx .COMPLEX #90 caps diphenhydramine 25 1 tab PO QHS PRN 05/07/23 01/28/24 History mg-acetaminophen 500 mg tablet (Tylenol PM Extra Strength) diazepam 5 mg tablet (Valium) 5 mg PO QHS PRN anxiety #1 TAB 06/19/23 01/28/24 Rx budesonide-formoterol HFA 160 2 puff inhalation BID #10.2 grams 08/27/23 01/28/24 Rx mcg-4.5 mcg/actuation aerosol inhaler (Symbicort) benazepril 20 mg tablet 10 mg (1/2 x 20 mg) PO DAILY #45 01/01/24 01/28/24 Rx TABLETS varenicline 1 mg tablet (Chantix 1 mg PO BID #120 tabs 01/21/24 01/28/24 Rx Continuing Month Box) fluticasone propionate 50 1 spray intranasal QDAY 01/28/24 01/28/24 History mcg/actuation nasal spray,suspension (24 Hour Allergy Relief) Have you fallen in the past year?: Yes (fall out of tub 01/25/2024 hit head ) PFSH Medical History Sprain of left foot Strain of left Achilles tendon Left ankle sprain Contact with and (suspected) exposure to other viral communicable diseases Aphthous ulcer of tongue COPD (chronic obstructive pulmonary disease) Acute sinusitis, unspecified Chronic neck and back pain Difficulty balancing Diarrhea Knee pain Shoulder pain Hemorrhoid Stomach ulcer Hypertension COPD (chronic obstructive pulmonary disease) Lumbar radiculopathy Ulcer Vision problems IBS (irritable bowel syndrome) Hearing problem Chronic headaches Drug abuse Chronic bronchitis Bone fracture Back problem Arthritis Seasonal allergies Alcohol abuse History of foot fracture Chronic pain Hypertension Surgical History Hx of foot surgery Hx of spinal fusion History of colonoscopy History of esophagogastroduodenoscop y (EGD) History of tonsillectomy History of back surgery Family History Mother Heart disease Hypertension Osteoporosis CVA (cerebral vascular accident) Father Heart disease Hypertension CRANIAL ANEUY Sister Cancer kidney Hypertension Kidney disease Thyroid disorder Grandfather Alcoholism Grandmother Colon cancer Sister Cancer Social History Smoking Status: Former smoker pack-years: 50 Tobacco: How many years used: 50 second hand exposure: No alcohol intake: never substance use type: does not use what type of physical activity do you participate in: walking, running and weight training frequency: 1-2 times per week HPI HPI Chief Complaint: check up Details: MAGED SÁNCHEZ, is a 73 M who presents to the office today for low back pain that is radicular extending into his right leg. He has had some spinal surgery but he is getting numbness of his right leg to the point that he is fallen twice in the bathroom and injured himself. His surgeries a long time ago and unfortunately his job involves a fair amount of heavy lifting which she is finding increasingly difficult to do. ROS Const Constitutional: No body ache, chills, excessive sweating, fatigue, fever(s), frequent falls, headache(s), snoring, weakness or change in appetite Eyes Eyes: No blurry vision, change in vision, eye pain or Light sensitivity ENT ENT: No abnormal hearing, ear or mastoid pain, tinnitus (more content not included)... Normal [facility] HLA B27on 12-26-2023 HLA B27 Negative Normal . [facility] Comment on above: Result Comment: HLA- B*27 Negative B27 allele interpretation for all loci based on IMGT/HLA database version 3.51.0 This test was developed and its performance characteristics determined by [facility]. It has not been cleared or approved by the Food and Drug Administration. [facility] CLIA ID Number [id number] This test was performed using Polymerase Chain Reaction (PCR) and Sequence Specific Oligonucleotide Probes (SSOP) technique. Sequence Based Typing (SBT) may be used as a supplemental method when necessary. If you have questions, please call HLA customer service at or email at [email or web address]. Performed at: [address] [place] [id number] Tar Chaser: Sylvia Winchester PhD, Phone: [phone] Performed By: #### L 101.9900, L501.6710, L501.1400, L3410.1400, L505.7010, L3100.7950 ####[facility] [id number] [place], [place], [address] Pulmonary Visit Reporton Pulmonary Visit Report [facility] [address] [place] [address] OFFICE VISIT Date of Service: 12/24/23 MR#: [id number] Acct: [id number] Name: MAGED SÁNCHEZ Rep #: [id number] : 1950 Provider: LAM Patterson Age/Sex: 73/M Location: [facility] [place] Status: Signed Assessment and Plan Assessment and Plan (1) 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: Status: Chronic Plan: CT indicates stability. We will proceed with continued imaging by repeating a diagnostic CT of the chest in 1 year. The patient has been encouraged contact the office with any new or worsening symptoms. He is agreeable with this plan. (2) Daytime hypersomnia: Status: Acute Plan: He is not interested in testing. (3) Asthma: Status: Chronic Qualifiers: Asthma complication type: uncomplicated Asthma persistence: persistent Asthma severity: moderate Qualified Code(s): J45.40 - Moderate persistent asthma, uncomplicated Plan: He does not appear to be in exacerbation today. Continue Symbicort. No indication for antibiotics or steroids. Follow-up in 1 year. Contact the office with any new or worsening symptoms in the meantime. Orders: Orders Chest without Contrast 11/18/24 R91.1 - Solitary pulmonary nodule Plan Details Follow Up: 1 Year ([facility]) HPI 4 M FU Chief Complaint: Test results HPI Comments Details: This patient presents to the office today to discuss test results. He is ambulatory and currently on room air. He has not recently been seen in the ED or urgent care for any respiratory illness. He has not required any antibiotics or prednisone for any breathing problems. He is compliant with use of Symbicort 2 puffs twice daily. He does report rinsing his mouth out after each use. He denies any medication side effect such as sore throat or thrush. He has not recently been utilizing albuterol. If you recall, he has a greater than [id number] smoking history. He was a 1 pack/day smoker up until November 2022. He is currently smoking approximately 1 cigarette/day. He denies any difficulty with shortness of breath. He is experiencing a cough that is sometimes productive of brown-colored sputum, he denies any hemoptysis. He denies any wheezing, chest tightness, chest pain or palpitations. He also denies any fever, chills or body aches. He does have sinus congestion related to seasonal allergies. The patient admits that he did not complete the sleep test as requested. He states that he is not interested in pursuing sleep testing. Test results personally reviewed patient: CT scan of the chest without contrast completed on December 02, 2023. No significant interval change in the 11 mm left nodule. Intake Vital Signs 08/20/23 11:10 10/08/23 14:34 12/24/23 13:33 Height 5 ft 8 in 5 ft 10 in 5 ft 10 in Weight: 228 lb BMI 32.7 BP 158/74 H Blood Pressure Location Lt brachial Position Sitting Respiration 20 H Pulse 75 Pulse Source Monitor Temp 97.5 F L Temperature Source Temporal Artery Pulse Oximetry (%) 95 Oxygen Delivery Method room air Intake Visit Reasons: 4 M FU Chief Complaint: LT ANKLE SPRAIN X10 days ago University Administrative Assistant Required: No Accompanied by: Self Allergies grass pollen Allergy (Intermediate, Verified 12/24/23 14:42) Watery eyes,Sneezing, Runny nose, fexofenadine (From Yelena) Allergy (Verified 12/24/23 14:42) Hives pollen extracts Allergy (Verified 12/24/23 14:42) Congestion sertraline Adverse Reaction (Severe, Verified 12/24/23 14:42) suicidal thoughts Medications ???Medication ???Instructions ???Recorded ???Confirmed ???Type vitamin C 45 mg-zinc citrate 3.75 tab PO 05/17/22 12/24/23 History mg-elderberry 50 mg chewable tablet (BuildCircle) tamsulosin 0.4 mg capsule See Rx Instructions .Route 03/26/23 12/24/23 Rx .COMPLEX #90 caps diphenhydramine 25 1 tab PO QHS PRN 05/07/23 12/24/23 History mg-acetaminophen 500 mg tablet (Tylenol PM Extra Strength) diazepam 5 mg tablet (Valium) 5 mg PO QHS PRN anxiety #1 TAB 06/19/23 12/24/23 Rx benazepril 20 mg tablet 10 mg (1/2 x 20 mg) PO DAILY #45 06/25/23 12/24/23 Rx tabs budesonide-formoterol HFA 160 2 puff inhalation BID #10.2 grams 08/27/23 12/24/23 Rx mcg-4.5 mcg/actuation aerosol inhaler (Symbicort) prednisone 5 mg tablet mg PO 12/24/23 12/24/23 History Have you fallen in the past year?: Yes [facility] Medical History (Reviewed 12/26/23 @ 10:44 by Antonette Patterson BIODIESEL ENGINE SPECIALIST, BIODIESEL ENGINE SPECIALIST-C) Sprain of left foot Strain of left Achilles tendon Left ankle sprain Contact with and (suspected) exposure to other viral communicable diseases Aphthous ulcer of tongue COPD (chronic obstructive pulmonary disease) Acute sinusitis, unspecified Chronic neck and back pain Difficulty balancing D (more content not included)... Normal [facility] Antinuclear Antibody, IFAon 12-20-2023 JIGNA, IFA Negative Normal . [facility] Comment on above: Result Comment: Nega tive <1:80 Borderline 1:80 Positive >1:80 ICAP nomenclature: AC-0 For more information about Hep-2 cell patterns use ANApatterns.org, the official website for the International Consensus on Antinuclear Antibody (JIGNA) Patterns (ICAP). Performed at: [facility] [id number] Tar Chaser: Gilmer Otto PhD, Phone: [phone] Performed By: #### L 101.9900, L501.6710, L501.1400, L3410.1400, L505.7010, L3100.7950 ####[facility] [id number] [place], [place], [id number] CRPon 12-17-2023 C-REACTIVE PROT 21.30 mg/L High 0.0-3.0 [facility] Comment on above: Result Comment: C-Re active Protein (CRP) provides useful information for the diagnosis, therapy and monitoring of inflammatory processes and associated diseases. For the evaluation of Relative Risk for Cardiovascular Disease, a High Sensitivity CRP (HSCRP) should be ordered. Performed By: #### L 101.9900, L501.6710, L501.1400, L3410.1400, L505.7010, L3100.7950 ####[facility] [id number] [place], [place], [id number] Erythrocyte Sed Rateon 12-16 SED RATE 17 mm/hr Normal 0-20 [facility] Comment on above: Performed By: #### L 101.9900, L501.6710, L501.1400, L3410.1400, L505.7010, L3100.7950 #### [facility] [address] [place], [address] Foot min 3 Viewson 4 Foot min 3 Views [facility] Imaging Services [address] [place] [address] Foot min 3 Views MR#: [id number] Acct: [id number] Name: MAGED SÁNCHEZ Rep #: [id number] : 1950 M 73 From: Kishan Leon PCP: Dr. Shane Das DO Status: REG CLI Study: Foot min 3 Views Date of Exam: 12/17/23 Exam# [id number] Ordering Dr: Fidelia Robles DPShama [id number] INDICATION: Metatarsalgia, right foot EXAMINATION/TECHNIQUE: X-RAY - RIGHT XR Foot Min 3 Views 3 VIEWS COMPARISON: No relevant prior comparison study available FINDINGS: SOFT TISSUES: No soft tissue swelling or gas. No radiopaque foreign body. BONES/JOINTS: Status post bunionectomy. No acute fracture. Probable old fracture of the head of the metacarpal. No evidence of dislocation. No sclerotic or destructive changes observed. RAD/Foot min 3 Views IMPRESSION: No demonstrated acute osseous changes. Electronically Signed: Kishan Gao MD at 13:42 EDT , CC: EDUARDO Robles; Dr. Shane Das DO Field Training Manager: Signed Normal [facility] Rheumatoid Factoron 12-17-19 24 RHEUMATOID FAC < 10.0 Normal <15 [facility] Comment on above: Performed By: #### L 101.9900, L501.6710, L501.1400, L3410.1400, L505.7010, L3100.7950 ####[facility] [address] [place], [place], [id number] Uric Acidon 12-17-2023 URIC 6.8 mg/dL Normal 3.5-7.2 [facility] Comment on above: Result Comment: The drugs N-Acetylcysteine and Metamizole may falsely depress this assay. Performed By: #### L 101.9900, L501.6710, L501.1400, L3410.1400, L505.7010, L3100.7950 ####[facility] [address] [place], [address] CREATININE FINGERSTICKon Creatinine [Mass/Vol] 1.4 mg/dL High 0.70-1.30 [facility] Comment on above: Performed By: #### L 9100.0200 #### [facility] [address] [place], [address] GFR/1.73 sq M.predicted among non-blacks MDRD (S/P/Bld) [Vol rate/Area] 51.0000 mL/min/{1.73_m2} Low >60 [facility] Comment on above: Performed By: #### L 9100.0200 #### [facility] [address] [place], [address] Chest WITH Contraston 2023 Chest WITH Contrast [facility] Imaging Services [address] [place] [address] Chest WITH Contrast MR#: [id number] Acct: [id number] Name: MAGED SÁNCHEZ Rep #: [id number] : 1950 M 73 From: Yamilka kirkland MD PCP: Dr. Shane Das, DO Status: REG CLI Study: Chest WITH Contrast Date of Exam: 12/02/23 Exam# [id number] Ordering Dr: Antonette Patterson BIODIESEL ENGINE SPECIALIST BIODIESEL ENGINE SPECIALIST-C ADDENDUM by Dr. Yamilka Gill MD on 12/19/23 at 1231 ADDENDUM [id number] Presence of pulmonary emphysema on CT is an independent risk factor for lung cancer. Consider LDCT lung cancer screening in the future. Electronically Signed: Yamilka Gill MD at 12:31 EDT , 12/19/23 1231 Date cc: LAM Patterson; Dr. Shane Das, DO * Signed ADDENDUM by Dr. Yamilka Gill MD on 12/19/[address]/Chest WITH Contrast IMPRESSION: undefined 12/19/23 1238 Date cc: LAM Patterson; Dr. Shane Das, DO * Signed [id number] HISTORY: nodule. TECHNIQUE: CT of the chest was performed after the intravenous administration of 100 mL Isovue-370. Coronal and sagittal reformatted images. Individualized dose optimization techniques were used for this CT. 853 images. COMPARISON: 07/02/2023, 12/18/2022, and 2022. FINDINGS: CENTRAL AIRWAYS: Patent. LUNGS: Mild paraseptal emphysema. 11 mm lobulated left lower lobe nodule, unchanged in size from PET-CT 07/02/2023 and 12/18/2022 and slightly smaller compared to CT 2022. Calcified granuloma in the right middle lobe PLEURA: No pneumothorax or significant pleural effusion. HEART/PERICARDIUM: Heart within normal limits in size with coronary artery disease. No pericardial effusion. AORTA/VESSELS: No thoracic aortic aneurysm or dissection flap. Mild atherosclerosis. No large central filling defect identified in the pulmonary arteries. MEDIASTINUM/ALISON: No pathologically enlarged lymph nodes. Small calcified subcarinal lymph nodes. OSSEOUS STRUCTURES: Spinal osteophytes present. UPPER ABDOMEN: Hepatic steatosis. Calcified splenic granulomas. CT/Chest WITH Contrast IMPRESSION: No significant interval change in size of 11 mm left lower lobe pulmonary nodule. Lung-RADS category 3: Recommend 6 month follow-up low dose CT. Electronically Signed: Yamilka Gill MD at 10:00 EDT , CC: LAM Patterson; Dr. Shane Das DO Field Training Manager: Signed Normal [facility] No Panel Informationon 10-23 POC SARS CoV-2 Antigen Negative [facility] No Panel Informationon 04-07 POC SARS CoV-2 Antigen Positive [facility] No Panel Informationon 05-29 [facility] XR HIP 3V PELV+ AP/LAT LTon 05-29-2021 XR HIP 3V PELV+ AP/LAT LT * * *Final Rep ort* * * DATE OF EXAM: May 29 2021 11:14AM [id number] [id number] - XR HIP 3V PELV+ AP/LAT LT / PROCEDURE REASON: DORSALGIA, UNSPECIFIED, LEFT LOWER QUADRANT PAIN * * * * Physician Interpretation * * * * LUMBAR SPINE/PELVIS AND BOTH HIPS HISTORY: Indication: DORSALGIA, UNSPECIFIED Left sided lower back pain that radiates down the left leg x 1 week 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 RESULT: Findings: LUMBAR SPINE: Posterior fusion L4-5 metallic bars and pedicular screws. Interbody hardware noted L4-5 level. The interbody hardware appears to be tilted downward medially as viewed in the anterior projection. Laminectomy defects noted at L4 level. The disc spaces appear well-preserved. The vertebra are in good alignment. No fractures or dislocations are seen. PELVIS AND Both hips : Pelvis: No fractures or dislocations are seen. Bone density appears well preserved. Hip joints appear well-preserved. Sacroiliac joints are intact. Right hip: No fractures or dislocations are seen. Left hip: No fractures or dislocations are seen. IMPRESSION: 1. Surgical hardware present in the lumbar area. See discussion 2. Hip joints appear well-preserved Field Training Manager: GONZALO Transcribe Date/Time: May 29 2021 12:28P Dictated by : CHINA LEDBETTER DO This examination was interpreted and the report reviewed and electronically signed by: CHINA LEDBETTER DO on May 29 2021 12:35PM EST [id number] Normal 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 RESULT: Findings: LUMBAR SPINE: Posterior fusion L4-5 metallic bars and pedicular screws. Interbody hardware noted L4-5 level. The interbody hardware appears to be tilted downward medially as viewed in the anterior projection. Laminectomy defects noted at L4 level. The disc spaces appear well-preserved. The vertebra are in good alignment. No fractures or dislocations are seen. PELVIS AND Both hips : Pelvis: No fractures or dislocations are seen. Bone density appears well preserved. Hip joints appear well-preserved. Sacroiliac joints are intact. Right hip: No fractures or dislocations are seen. Left hip: No fractures or dislocations are seen. IMPRESSION: 1. Surgical hardware present in the lumbar area. See discussion 2. Hip joints appear well-preserved Field Training Manager: GONZALO Transcribe Date/Time: May 29 2021 12:28P Dictated by : CHINA LEDBETTER DO This examination was interpreted and the report reviewed and electronically signed by: CHINA LEDBETTER DO on May 29 2021 12:35PM EST [id number] Normal [facility] XR CHEST 2V FRONTAL/LATon XR CHEST 2V FRONTAL/LAT * * *Final Repor t* * * DATE OF EXAM: Feb 14 2021 1:20PM [id number] [id number] - XR CHEST 2V FRONTAL/LAT / PROCEDURE REASON: covid * * * * Physician Interpretation * * * * EXAMINATION: CHEST RADIOGRAPH (2 VIEW FRONTAL and LATERAL) CLINICAL HISTORY: Covid MQ: [id number] EXAM DATE/TIME: 02/14/2021 1:20 PM COMPARISON: Comparison is made to prior chest radiograph dated 02/23/[address] of the chest from 04/25/2016 RESULT: Lines, tubes, and devices: None. Lungs and pleura: There is no focal consolidation or acute pleural process/fluid. There is no vascular redistribution to suggest pulmonary edema. Cardiomediastinal silhouette: The cardiac, mediastinal and hilar shadows are unchanged and remain within normal limits. Other: The bony structures are intact IMPRESSION: Stable chest. No acute cardiopulmonary process. Field Training Manager: PSCB Transcribe Date/Time: Feb 14 2021 1:27P Dictated by : DONAVAN WREN MD This examination was interpreted and the report reviewed and electronically signed by: DONAVAN WREN MD on Feb 14 2021 1:30PM EST [id number] Normal [facility] Vital Signs Date Time Vital Sign Value Performing Clinician Griffini mar 10-15-2024 08:23-0400 Body mass index (BMI) [Ratio] 32.6 kg/m2 Dr. Shane Das DO Work Phone: [facility] 10-15-2024 08:23-0400 Body temperature 97.4 [degF] Dr. Shane Das DO Work Phone: [facility] 10-15-2024 08:23-0400 Body weight 100.[address] Shane Das DO Work Phone: [facility] 10-15-2024 08:23-0400 Diastolic blood pressure 84 mm[Hg] Dr. Shane Das DO Work Phone: [facility] 10-15-2024 08:23-0400 Heart rate 74 /min Dr. Shane Das DO Work Phone: [facility] 10-15-2024 08:23-0400 Respiratory rate 18 /min Dr. Shane Das DO Work Phone: [facility] 10-15-2024 08:23-0400 SaO2% (BldA) [Mass fraction] 93 % Dr. Shane Das DO Work Phone: [facility] 10-15-2024 08:23-0400 Systolic blood pressure 188 mm[Hg] Dr. Shane Das DO Work Phone: [facility] 09-25-2024 09:49-0400 Body height 175.[address] Shane Das DO Work Phone: [facility] 09-25-2024 09:49-0400 Body mass index (BMI) [Ratio] 32.1 kg/m2 Dr. Shane Das DO Work Phone: [facility] 09-25-2024 09:49-0400 Body temperature 97.4 [degF] Dr. Shane Das DO Work Phone: [facility] 09-25-2024 09:49-0400 Body weight 98.[address] Shane Das DO Work Phone: [facility] 09-25-2024 09:49-0400 Diastolic blood pressure 84 mm[Hg] Dr. Shane Das DO Work Phone: [facility] 09-25-2024 09:49-0400 Heart rate 75 /min Dr. Shane Das DO Work Phone: [facility] 09-25-2024 09:49-0400 Respiratory rate 18 /min Dr. Shane Das DO Work Phone: [facility] 09-25-2024 09:49-0400 SaO2% (BldA) [Mass fraction] 94 % Dr. Shane Das DO Work Phone: [facility] 09-25-2024 09:49-0400 Systolic blood pressure 148 mm[Hg] Dr. Shane Das DO Work Phone: [facility] 09-14-2024 12:09-0400 Body height 175.[address] Shane Das DO Work Phone: [facility] 09-14-2024 12:09-0400 Body mass index (BMI) [Ratio] 32.4 kg/m2 Dr. Shane Das DO Work Phone: [facility] 09-14-2024 12:09-0400 Body temperature 97 [degF] Dr. Shane Das DO Work Phone: [facility] 09-14-2024 12:09-0400 Body weight 99.[address] Shane Das DO Work Phone: [facility] 09-14-2024 12:09-0400 Diastolic blood pressure 94 mm[Hg] Dr. Shane Das DO Work Phone: [facility] 09-14-2024 12:09-0400 Heart rate 74 /min Dr. Shnae Das DO Work Phone: [facility] 09-14-2024 12:09-0400 Respiratory rate 16 /min Dr. Shane Das DO Work Phone: [facility] 09-14-2024 12:09-0400 SaO2% (BldA) [Mass fraction] 95 % Dr. Shane Das DO Work Phone: [facility] 09-14-2024 12:09-0400 Systolic blood pressure 160 mm[Hg] Dr. Shane Das DO Work Phone: [facility] 05-19-2024 10:12-0400 Body mass index (BMI) [Ratio] 33.4 kg/m2 Dr. Shane Das DO Work Phone: [facility] 05-19-2024 10:12-0400 Body temperature 95.7 [degF] Dr. Shane Das DO Work Phone: [facility] 05-19-2024 10:12-0400 Body weight 102.[address] Shane Das DO Work Phone: [facility] 05-19-2024 10:12-0400 Diastolic blood pressure 80 mm[Hg] Dr. Shane Das DO Work Phone: [facility] 05-19-2024 10:12-0400 Heart rate 69 /min Dr. Shane Das DO Work Phone: [facility] 05-19-2024 10:12-0400 Respiratory rate 20 /min Dr. Shane Das DO Work Phone: [facility] 05-19-2024 10:12-0400 SaO2% (BldA) [Mass fraction] 96 % Dr. Shane Das DO Work Phone: [facility] 05-19-2024 10:12-0400 Systolic blood pressure 148 mm[Hg] Dr. Shane Das DO Work Phone: [facility] 04-23-2024 10:18-0500 Body height 175.[address] Shane Das DO Work Phone: [facility] 04-23-2024 10:18-0500 Body mass index (BMI) [Ratio] 32.6 kg/m2 Dr. Shane Das DO Work Phone: [facility] 04-23-2024 10:18-0500 Body weight 100.[address] Shane Das DO Work Phone: [facility] 02-18-2024 12:14-0500 Body mass index (BMI) [Ratio] 32.8 kg/m2 Dr. Shane Das DO Work Phone: [facility] 02-18-2024 12:14-0500 Body weight 100.[address] Shane Das DO Work Phone: [facility] 01-28-2024 11:18-0500 Body mass index (BMI) [Ratio] 32.5 kg/m2 Dr. Shane Das DO Work Phone: [facility] 01-28-2024 11:18-0500 Body temperature 97.6 [degF] Dr. Shane Das DO Work Phone: [facility] 01-28-2024 11:18-0500 Body weight 102.[address] Shane Das DO Work Phone: [facility] 01-28-2024 11:18-0500 Diastolic blood pressure 78 mm[Hg] Dr. Shane Das DO Work Phone: [facility] 01-28-2024 11:18-0500 Heart rate 80 /min Dr. Shane Das DO Work Phone: [facility] 01-28-2024 11:18-0500 Respiratory rate 16 /min Dr. Shane Das DO Work Phone: [facility] 01-28-2024 11:18-0500 SaO2% (BldA) [Mass fraction] 98 % Dr. Shane Das DO Work Phone: [facility] 01-28-2024 11:18-0500 Systolic blood pressure 130 mm[Hg] Dr. Shane Das DO Work Phone: [facility] 05-07-2023 10:33-0400 Body height 172.[address] Shane Das Work Phone: [facility] 05-07-2023 10:33-0400 Body mass index (BMI) [Ratio] 35.1 kg/m2 Dr. Shane Das Work Phone: [facility] 05-07-2023 10:33-0400 Body temperature 98.3 [degF] Dr. Shane Das Work Phone: [facility] 05-07-2023 10:33-0400 Body weight 104.[address] Shane Das Work Phone: [facility] 05-07-2023 10:33-0400 Diastolic blood pressure 70 mm[Hg] Dr. Shane Das Work Phone: [facility] 05-07-2023 10:33-0400 Heart rate 82 /min Dr. Shane Das Work Phone: [facility] 05-07-2023 10:33-0400 Respiratory rate 20 /min Dr. Shane Das Work Phone: [facility] 05-07-2023 10:33-0400 SaO2% (BldA) [Mass fraction] 97 % Dr. Shane Das Work Phone: [facility] 05-07-2023 10:33-0400 Systolic blood pressure 106 mm[Hg] Dr. Shane Das Work Phone: [facility] 03-12-2023 09:50-0500 Body mass index (BMI) [Ratio] 35.2 kg/m2 Dr. Shane Das Work Phone: [facility] 03-12-2023 09:50-0500 Body temperature 98.2 [degF] Dr. Shane Das Work Phone: [facility] 03-12-2023 09:50-0500 Body weight 105.[address] Shane Das Work Phone: [facility] 03-12-2023 09:50-0500 Diastolic blood pressure 69 mm[Hg] Dr. Shane Das Work Phone: [facility] 03-12-2023 09:50-0500 Heart rate 79 /min Dr. Shane Das Work Phone: [facility] 03-12-2023 09:50-0500 SaO2% (BldA) [Mass fraction] 99 % Dr. Shane Das Work Phone: [facility] 03-12-2023 09:50-0500 Systolic blood pressure 136 mm[Hg] Dr. Shane Das Work Phone: [facility] 12-05-2022 06:31-0400 Body height 172.[address] Shane Das Work Phone: [facility] 12-05-2022 06:31-0400 Body mass index (BMI) [Ratio] 34.2 kg/m2 Dr. Shane Das Work Phone: [facility] 12-05-2022 06:31-0400 Body temperature 97.4 [degF] Dr. Shane Das Work Phone: [facility] 12-05-2022 06:31-0400 Body weight 102.[address] Shane Das Work Phone: [facility] 12-05-2022 06:31-0400 Diastolic blood pressure 66 mm[Hg] Dr. Shane Das Work Phone: [facility] 12-05-2022 06:31-0400 Heart rate 74 /min Dr. Shane Das Work Phone: [facility] 12-05-2022 06:31-0400 Respiratory rate 16 /min Dr. Shane Das Work Phone: [facility] 12-05-2022 06:31-0400 SaO2% (BldA) [Mass fraction] 93 % Dr. Shane Das Work Phone: [facility] 12-05-2022 06:31-0400 Systolic blood pressure 116 mm[Hg] Dr. Shane Das Work Phone: [facility] 11-07-2022 13:33-0400 Body mass index (BMI) [Ratio] 34.2 kg/m2 Dr. Shane Das Work Phone: [facility] 11-07-2022 13:33-0400 Body temperature 96.4 [degF] Dr. Shane Das Work Phone: [facility] 11-07-2022 13:33-0400 Body weight 102.[address] Shane Das Work Phone: [facility] 11-07-2022 13:33-0400 Diastolic blood pressure 64 mm[Hg] Dr. Shane Das Work Phone: [facility] 11-07-2022 13:33-0400 Heart rate 72 /min Dr. Shane Das Work Phone: [facility] 11-07-2022 13:33-0400 Respiratory rate 18 /min Dr. Shane Das Work Phone: [facility] 11-07-2022 13:33-0400 SaO2% (BldA) [Mass fraction] 95 % Dr. Shane Das Work Phone: [facility] 11-07-2022 13:33-0400 Systolic blood pressure 112 mm[Hg] Dr. Shane Das Work Phone: [facility] 10-23-2022 12:30-0400 Body mass index (BMI) [Ratio] 33.4 kg/m2 Dr. Shane Das Work Phone: [facility] 10-23-2022 12:30-0400 Body temperature 96.2 [degF] Dr. Shane Das Work Phone: [facility] 10-23-2022 12:30-0400 Body weight 102.[address] Shane Das Work Phone: [facility] 10-23-2022 12:30-0400 Diastolic blood pressure 73 mm[Hg] Dr. Shane Das Work Phone: [facility] 10-23-2022 12:30-0400 Heart rate 78 /min Dr. Shane Das Work Phone: [facility] 10-23-2022 12:30-0400 Respiratory rate 16 /min Dr. Shane Das Work Phone: [facility] 10-23-2022 12:30-0400 SaO2% (BldA) [Mass fraction] 91 % Dr. Shane Das Work Phone: [facility] 10-23-2022 12:30-0400 Systolic blood pressure 153 mm[Hg] Dr. Shane Das Work Phone: [facility] 09-18-2022 15:26-0400 Body mass index (BMI) [Ratio] 36 kg/m2 Dr. Shane Das Work Phone: [facility] 09-18-2022 15:26-0400 Body temperature 98.4 [degF] Dr. Shane Das Work Phone: [facility] 09-18-2022 15:26-0400 Body weight 104.[address] Shane Das Work Phone: [facility] 09-18-2022 15:26-0400 Diastolic blood pressure 86 mm[Hg] Dr. Shane Das Work Phone: [facility] 09-18-2022 15:26-0400 Heart rate 69 /min Dr. Shane Das Work Phone: [facility] 09-18-2022 15:26-0400 Respiratory rate 16 /min Dr. Shane Das Work Phone: [facility] 09-18-2022 15:26-0400 SaO2% (BldA) [Mass fraction] 98 % Dr. Shane Das Work Phone: [facility] 09-18-2022 15:26-0400 Systolic blood pressure 132 mm[Hg] Dr. Shane Das Work Phone: [facility] 06-19-2022 15:00-0400 Body height 170.[address] Shane Das Work Phone: [facility] 06-19-2022 15:00-0400 Body mass index (BMI) [Ratio] 36.3 kg/m2 Dr. Shane Das Work Phone: [facility] 06-19-2022 15:00-0400 Body temperature 97.8 [degF] Dr. Shane Das Work Phone: [facility] 06-19-2022 15:00-0400 Body weight 105.[address] Shane Das Work Phone: [facility] 06-19-2022 15:00-0400 Diastolic blood pressure 78 mm[Hg] Dr. Shane Das Work Phone: [facility] 06-19-2022 15:00-0400 Heart rate 69 /min Dr. Shane Das Work Phone: [facility] 06-19-2022 15:00-0400 Respiratory rate 16 /min Dr. Shane Das Work Phone: [facility] 06-19-2022 15:00-0400 SaO2% (BldA) [Mass fraction] 93 % Dr. Shane Das Work Phone: [facility] 06-19-2022 15:00-0400 Systolic blood pressure 132 mm[Hg] Dr. Shane Das Work Phone: [facility] 05-17-2022 12:52-0400 Body height 170.[address] Shane Das Work Phone: [facility] 05-17-2022 12:52-0400 Body mass index (BMI) [Ratio] 35.6 kg/m2 Dr. Shane Das Work Phone: [facility] 05-17-2022 12:52-0400 Body temperature 95.7 [degF] Dr. Shane Das Work Phone: [facility] 05-17-2022 12:52-0400 Body weight 103.[address] Shane Das Work Phone: [facility] 05-17-2022 12:52-0400 Diastolic blood pressure 74 mm[Hg] Dr. Shane Das Work Phone: [facility] 05-17-2022 12:52-0400 Heart rate 74 /min Dr. Shane Das Work Phone: [facility] 05-17-2022 12:52-0400 Respiratory rate 18 /min Dr. Shane Das Work Phone: [facility] 05-17-2022 12:52-0400 SaO2% (BldA) [Mass fraction] 96 % Dr. Shane Das Work Phone: [facility] 05-17-2022 12:52-0400 Systolic blood pressure 114 mm[Hg] Dr. Shane Das Work Phone: [facility] 04-07-2022 10:31-0500 Body temperature 97.5 [degF] Dr. Shane Das Work Phone: [facility] 04-07-2022 10:31-0500 Diastolic blood pressure 64 mm[Hg] Dr. Shane Das Work Phone: [facility] 04-07-2022 10:31-0500 Heart rate 73 /min Dr. Shane Das Work Phone: [facility] 04-07-2022 10:31-0500 Respiratory rate 14 /min Dr. Shane Das Work Phone: [facility] 04-07-2022 10:31-0500 SaO2% (BldA) [Mass fraction] 97 % Dr. Shane Das Work Phone: [facility] 04-07-2022 10:31-0500 Systolic blood pressure 128 mm[Hg] Dr. Shane Das Work Phone: [facility] 03-01-2022 11:08-0500 Body mass index (BMI) [Ratio] 36.1 kg/m2 Dr. Shane Das Work Phone: [facility] 03-01-2022 11:08-0500 Body temperature 97.8 [degF] Dr. Shane Das Work Phone: [facility] 03-01-2022 11:08-0500 Body weight 104.[address] Shane Das Work Phone: [facility] 03-01-2022 11:08-0500 Diastolic blood pressure 76 mm[Hg] Dr. Shane Das Work Phone: [facility] 03-01-2022 11:08-0500 Heart rate 85 /min Dr. Shane Das Work Phone: [facility] 03-01-2022 11:08-0500 Respiratory rate 16 /min Dr. Shane Das Work Phone: [facility] 03-01-2022 11:08-0500 SaO2% (BldA) [Mass fraction] 96 % Dr. Shane Das Work Phone: [facility] 03-01-2022 11:08-0500 Systolic blood pressure 120 mm[Hg] Dr. Shane Das Work Phone: [facility] 06-27-2021 13:27-0400 Body height 170.[address] Shane Das Work Phone: [facility] Work Phone: 06-27-2021 13:27-0400 Body mass index (BMI) [Ratio] 35.4 kg/m2 Dr. Shane Das Work Phone: [facility] Work Phone: 06-27-2021 13:27-0400 Body temperature 97.6 [degF] Dr. Shane Das Work Phone: [facility] Work Phone: 06-27-2021 13:27-0400 Body weight 102.[address] Shane Das Work Phone: [facility] Work Phone: 06-27-2021 13:27-0400 Diastolic blood pressure 80 mm[Hg] Dr. Shane Das Work Phone: [facility] Work Phone: 06-27-2021 13:27-0400 Heart rate 79 /min Dr. Shane Das Work Phone: [facility] Work Phone: 06-27-2021 13:27-0400 Respiratory rate 14 /min Dr. Shane Das Work Phone: [facility] Work Phone: 06-27-2021 13:27-0400 SaO2% (BldA) [Mass fraction] 97 % Dr. Shane Das Work Phone: [facility] Work Phone: 06-27-2021 13:27-0400 Systolic blood pressure 154 mm[Hg] Dr. Shane Das Work Phone: [facility] Work Phone: 05-29-2021 09:03-0400 Body mass index (BMI) [Ratio] 36 kg/m2 Dr. Shane Das Work Phone: [facility] Work Phone: 05-29-2021 09:03-0400 Body temperature 96.9 [degF] Dr. Shane Das Work Phone: [facility] Work Phone: 05-29-2021 09:03-0400 Body weight 104.[address] Shane Das Work Phone: [facility] Work Phone: 05-29-2021 09:03-0400 Diastolic blood pressure 84 mm[Hg] Dr. Shane Das Work Phone: [facility] Work Phone: 05-29-2021 09:03-0400 Heart rate 85 /min Dr. Shane Das Work Phone: [facility] Work Phone: 05-29-2021 09:03-0400 Respiratory rate 18 /min Dr. Shane Das Work Phone: [facility] Work Phone: 05-29-2021 09:03-0400 SaO2% (BldA) [Mass fraction] 94 % Dr. Shane Das Work Phone: [facility] Work Phone: 05-29-2021 09:03-0400 Systolic blood pressure 134 mm[Hg] Dr. Shane Das Work Phone: [facility] Work Phone: Encounters Encounter Date Encounter Type Care Provider Facility Start: 10-15-2024 End: 10-15-2024 Patient encounter procedure Antonette Patterson BIODIESEL ENGINE SPECIALIST-C -[facility] Work Phone: Start: 10-15-2024 End: 10-15-[address] Shane Das DO Work Phone: -[facility] Start: 09-28-2024 End: 09-28-[address] Shane Das DO Work Phone: -Laboratory Start: 09-28-2024 End: 09-28-2024 Patient encounter procedure Antonette Patterson BIODIESEL ENGINE SPECIALIST-C -Laboratory Work Phone: Start: 09-28-2024 End: 09-28-2024 ambulatory Shane Das Facility:[facility] Start: 09-25-2024 End: 09-25-2024 Patient encounter procedure Antonette Patterson BIODIESEL ENGINE SPECIALIST-C -[facility] Work Phone: Start: 09-25-2024 End: 09-25-[address] Shane Das DO Work Phone: -[facility] Start: 09-25-2024 End: 09-25-2024 ambulatory Shane Das Facility:[facility] Start: 09-14-2024 End: 09-14-2024 Patient encounter procedure Yari Garcia BIODIESEL ENGINE SPECIALIST-C -[facility] Work Phone: Start: 09-14-2024 End: 09-14-[address] Shane Das DO Work Phone: -[facility] Start: 05-19-2024 End: 05-19-[address] Shane Perez DO -[facility] Work Phone: Start: 05-19-2024 End: 05-19-2024 ambulatory Shane Das Facility[place] Start: 04-23-2024 End: 04-23-2024 Patient encounter procedure Amalia JOHNSON -[facility] Work Phone: Start: 04-23-2024 End: 04-23-2024 ambulatory Shane Das Facility:[facility] Start: 04-16-2024 End: 04-16-[address] Shane Das DO Work Phone: [facility] Work Phone: Start: 04-16-2024 End: 04-16-2024 Patient encounter procedure Amalia JOHNSON -[facility] Work Phone: Start: 04-16-2024 End: 04-16-2024 ambulatory Shane Das Facility:[facility] Start: 02-18-2024 End: 02-18-2024 Patient encounter procedure Amalia JHONSON -[facility] Work Phone: Start: 02-18-2024 End: 02-18-2024 ambulatory Shane Das Facility:[facility] Start: 01-28-2024 End: 01-28-[address] Shane Perez DO -[facility] Work Phone: Start: 01-28-2024 End: 01-28-2024 ambulatory Shane Das Facility:[facility] Start: 12-29-2023 Encounter for preprocedural laboratory examination Antonette Patterson BIODIESEL ENGINE SPECIALIST [facility] Start: 12-24-2023 End: 12-24-2023 ambulatory Shane Das Facility:[facility] Start: 12-17-2023 End: 12-17-2023 ambulatory Fidelia Robles Facility:[facility] Start: 12-02-2023 End: 12-02-2023 ambulatory Antonette Patterson NP Facility:[facility] Start: 06-20-2023 End: 06-20-[address] Shane Das Work Phone: [facility] Work Phone: Start: 06-20-2023 End: 06-20-[address] Shane Das Work Phone: [facility] Work Phone: Start: 05-07-2023 End: 05-07-[address] Shane Das Work Phone: [facility] Internal [facility] Work Phone: Start: 03-12-2023 End: 03-12-[address] Shane Das Work Phone: [facility] Pulmonary Medicine Work Phone: Start: 12-18-2022 End: 12-18-[address] Shane Das Work Phone: [facility] Work Phone: Start: 12-18-2022 End: 12-18-[address] Shane Das Work Phone: [facility] Start: 12-05-2022 End: 12-05-[address] [facility] Work Phone: Start: 2022 End: [address] Shane Das Work Phone: [facility] Work Phone: Start: 11-07-2022 End: 11-07-[address] Shane Das Work Phone: [facility] Internal Medicine Work Phone: Start: 10-23-2022 End: 10-23-[address] Shane Das Work Phone: [facility] Work Phone: Start: 09-18-2022 End: 09-18-[address] Shane Das Work Phone: [facility] Work Phone: Start: 06-22-2022 Non-patient / Non-visit Dr. Francis Work Phone: [facility] Start: 06-21-2022 End: 06-21-[address] Shane Das Work Phone: [facility] Work Phone: Start: 06-21-2022 End: 06-21-[address] Shane Das Work Phone: [facility]-Pulmonary Services/Neurology Start: 06-19-2022 End: 06-19-[address] Shane Das Work Phone: [facility] Internal Medicine Start: 05-17-2022 End: 05-17-[address] Shane Das Work Phone: [facility] Work Phone: Start: 05-17-2022 End: 05-17-[address] Shane Das Work Phone: [facility] Start: 05-17-2022 End: 05-17-[address] Shane Das Work Phone: [facility] Internal Medicine Start: 04-07-2022 End: 04-07-[address] Shane Das Work Phone: [facility] Start: 03-01-2022 End: 03-01-[address] Shane Das Work Phone: [facility] Internal Medicine Start: 07-20-2021 End: 07-20-[address] Shane Das Work Phone: [facility]-Physical Therapy Start: 06-27-2021 End: 06-27-[address] Shane Das Work Phone: [facility] Internal Medicine Start: 06-07-2021 End: 06-07-[address] Shane Das Work Phone: [facility] Start: 05-29-2021 End: 05-29-2021 Subsequent hospital visit by physician Dmitry [facility] Work Phone: Radiology Start: 05-29-2021 End: 05-29-[address] Shane Das Work Phone: [facility] Internal Medicine Procedures Date Procedure Procedure Detail Performing Clinician Start: 09-28-[address] Shane Das DO Work Phone: Start: 09-28-[address] Elvia Das DO Work Phone: Comment on above: The atypical pANCA p attern has been observed in asignificant percentage of patients with ulcerative colitis,primary sclerosing cholangitis and autoimmune hepatitis. Start: 09-28-[address] Shane Das DO Work Phone: Start: 09-28-2024 House dust mite (Df) RAST Dr. Shane Das DO Work Phone: Start: 09-28-2024 Mouse urine proteins RAST Dr. Shane Das DO Work Phone: Comment on above: Performed at: [address] [id number] Director: Lokesh Stevenson MD, Phone: [phone] Start: 09-28-2024 Plantain (Mexican) RAST Dr. Shane Das DO Work Phone: Start: 09-25-2024 Gram stain microscopy D charlie Das DO Work Phone: Start: 09-25-2024 Respiratory microbia l culture Dr. Shane Das DO Work Phone: Start: 04-16-2024 MRI of lumbar spine Dr. Shane Das DO Work Phone: Start: 02-18-2024 X-ray of lumbosacral spine Dr. Shane Das DO Work Phone: Start: 06-20-2023 CT of chest without contrast Dr. Shane Das Work Phone: Start: [address] Antwan Das Work Phone: Start: 09-18-2022 X-ray of lumbar spin e, two or three views Dr. Shane Das Work Phone: Start: 05-17-2022 Plain chest X-ray Dr. Carolyn Das Work Phone: Start: 06-07-2021 Plain x-ray of pelvi s and lower extremity Dr. Shane Dsa Work Phone: Start: 06-07-2021 X-ray of lumbar spin e, two or three views Dr. Shane Das Work Phone: Start: 05-29-2021 Radex hip unilateral with pelvis 2-3 views [facility] Provider Plan of Treatment Date Care Activity Detail Author Start: 10-27-2024 ambulatory Ambulatory Facility:[facility] Start: 09-28-2024 IgE [Units/volume] in Serum or Plasma [facility] Start: 09-28-2024 [facility] Start: 01-28-2024 Patient referral [facility] Work Phone: Start: 03-12-2023 Patient referral [facility] Work Phone: Start: 12-18-2022 Positron emission tomography with computed tomography [facility] Start: 09-18-2022 Patient referral [facility] Work Phone: Start: 10-19-2021 Influenza vaccination INFLUENZA (Season Ended) [facility] Start: 05-31-2021 Patient referral [facility] Work Phone: Start: 02-18-2021 ADVANCE DIRECTIVE DISCUSSION ADVANCE DIRECTIVE DISCUSSION [facility] Start: 09-06-2019 DIABETES SCREEN DIABETES SCREEN [facility] Start: 11-18-2016 PNEUMOVAX AGE 65 AND OVER WITH 5YR LOOKBACK (#1) PNEUMOVAX AGE 65 AND OVER WITH 5YR LOOKBACK (#1) [facility] Start: 06-03-2016 LIPID SCREEN LIPID SCREEN [facility] Start: 11-18-2001 SHINGRIX VACCINE (1 of 2) SHINGRIX VACCINE (1 of 2) [facility] Start: 11-18-1996 COLOGUARD (FIT-DNA) COLOGUARD (FIT-DNA) [facility] Start: 11-18-1996 Colonoscopy COLONOSCOPY [facility] Start: 11-18-1996 COLORECTAL CANCER SCREENING COLORECTAL CANCER SCREENING [facility] Start: 11-18-[address] COLONOGRAPHY [facility] Start: 11-18-1996 FECAL OCCULT BLOOD FECAL OCCULT BLOOD [facility] Start: 11-18-1996 SIGMOIDOSCOPY SIGMOIDOSCOPY [facility] Start: 11-18-1970 Urine microalbumin profile DTAP,TDAP,TD (1 - Tdap) [facility] Start: 11-18-1969 ANNUAL PCP TEAM CHRONIC DISEASE VISIT ANNUAL PCP TEAM CHRONIC DISEASE VISIT [facility] Start: 11-18-1969 BP CONTROLLED (<130/80) BP CONTROLLED (<130/80) [facility] Start: 11-18-1969 HEPATITIS C SCREENING HEPATITIS C SCREENING [facility] Start: 11-18-1969 SPIROMETRY SPIROMETRY [facility] Start: 1962 Adult depression screening assessment DEPRESSION SCREENING [facility] Start: 11-18-1956 COVID-19 VACCINE (1) COVID-19 VACCINE (1) [facility] Start: 1950 ABDOMINAL AORTIC ANEURYSM SCREENING ABDOMINAL AORTIC ANEURYSM SCREENING [facility] Alternaria alternata RAST [facility] [place] house dust mite IgE Ab [Units/volume] in Serum [facility] Bacteria identified in Sputum by Culture [facility] Bacteria identified in Sputum by Culture [facility] Bermuda grass IgE Ab [Units/volume] in Serum [facility] Cat dander IgE Ab [Units/volume] in Serum [facility] CBC W Auto Different ial panel - Blood [facility] Common Ragweed IgE A b [Units/volume] in Serum [facility] Dog epithelium IgE A b [Units/volume] in Serum [facility] house dust mite IgE Ab [Units/volume] in Serum [facility] IgE [Units/volume] i n Serum or Plasma [facility] [place] blue grass IgE Ab [Units/volume] in Serum [facility] Measurement of Aspergillus flavus antibody [facility] Measurement of Aspergillus fumigatus antibody [facility] Measurement of Aspergillus niger antibody [facility] Mouse urine proteins RAST [facility] Neutrophil cytoplasm ic Ab.classic [Units/volume] in Serum [facility] P-ANCA measurement [facility] Patient referral [facility] Work Phone: Plantain (Mexican) RAST [facility] Positron emission tomography with computed tomography [facility] White Elm IgE Ab [Units/volume] in Serum [facility] [place] IgE Ab [Units/volume] in Serum [facility] Payers Date Payer Category Payer Medicare [id number] 2023 Self-pay [id number] 2023 Medicaid [id number] 2023 Unknown [id number] 2020 Medicare MMO MEDICARE MMO MEDADVANTAGE [id number] 2020-Present [phone] [address] [place] [id number] [facility] [id number] Medicare MEDICARE PART A B [id number] Unknown [id number] Unknown [id number] Unknown [id number] Unknown [id number] Unknown [id number] Unknown [id number] Unknown [id number] Unknown [id number] Unknown [id number] Unknown [id number] Unknown [id number] Unknown [id number] Unknown [id number] Unknown [id number] Unknown [id number] Unknown [id number] Social History Date Type Detail Facility [facility] Start: 02-23-2011 Cigarettes smoked current (pack per day) - Reported 0.5 [facility] Start: 02-23-2011 Tobacco use and exposure Smokeless tobacco non-user [facility] Start: 05-22-2011 Alcohol intake Current non-dr yuniel of alcohol (finding) [facility] Start: 03-23-2011 History SDOH Alcohol Comment recovering 26yrs sobber [facility] Start: 03-23-2011 Tobacco Comment soming alot less now [facility] Start: 1950 Sex Assigned At Not on file [facility] Start: 06-27-2021 End: 05-07-2023 Tobacco smoking status NHIS Unknown if ever smoked [facility] Start: 1950 Sex Assigned At Male [facility] Start: 08-20-2023 [facility] Start: 04-29-2024 Sex Male (finding) [facility] Start: 09-25-2024 Tobacco smoking stat us NHIS Current some day smoker [facility] Clinical Notes 02-14-2021 to 09-14-2024 Note Date & Type Note Facility 09-14-2024 Evaluation note Diagnosis Onset Date Resolution Acute sinusitis, unspecified acute September 14, 2024 12:09pm [facility] Work Phone: 1(117) 375-749207-28-2025 Evaluation note* Diagnosis Onset Date Resolution Status Admit Date Acute sinusitis, unspecified acute September 14, 2024 12:09pm Asthma chronic September 25 9:48am Seasonal allergies chronic September 25, 2024 9:48am [facility] Work Phone: 1(298) 737-884507-28-2025 Evaluation note* Diagnosis Onset Date Resolution Status Admit Date Acute sinusitis, unspecified acute September 14, 2024 12:09pm Asthma chronic September 25 9:48am Seasonal allergies chronic September 25, 2024 9:48am 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 12:42pm [facility] Work Phone: 1(576) 148-438504-01-2025 Evaluation note* Diagnosis Onset Date Resolution Status Admit Date BPH (benign prostatic hyperplasia) acute May 19, 2024 10:08am Lumbar radiculopathy acute Apr2024 10:08am COPD (chronic obstructive pulmonary disease) chronic May 19 10:08am Tobacco abuse chronic May 19, 2024 10:08am Acute sinusitis, unspecified acute September 14, 2024 12:09pm [facility] [facility] Work Phone: [phone]) 631-310012-10-2024 Evaluation note* Diagnosis Onset Date Resolution Status Admit Date Low back pain acute January 272023 11:10am Lumbar radiculopathy acute Dece 2023 11:10am History of lumbar fusion acute February 18, 2024 11:49am Lumbar radiculopathy acute Dece 2023 11:49am History of lumbar fusion acute April 23, 2024 9:54am Lumbar radiculopathy acute Connor 2024 9:54am [facility] Work Phone: 1(259) 639-102605-05-[address] [facility] 05-29-2021 NoteHNO ID: [id number] Author: MANJEET Swartz) Service: Radiology Author Type: Technologist Type: Progress Notes Filed: 05/29/2021 11:15 AM Note Text: Radiology Service Progress Note PATIENT NAME: Maged Sánchez DATE OF SERVICE: May 29, 2021 TIME: 10:56 AM PATIENT IDENTITY VERIFICATION COMPLETED USING TWO (2) IDENTIFIERS: Name and Date of confirmed by patient verbally. FALL SCREENING: Has the patient had 2 falls in the last year or 1 fall with injury or currently using an Ambulatory Assistive Device (Walker, Cane, Wheelchair, Crutches, etc.)? No PATIENT GENDER DATA: Male PATIENT RELEVANT IMPLANT DATA REVIEWED: Yes RADIOLOGY DEPARTMENT: General X-ray: Exam(s) Completed: Spine X-Ray(s): Lumbar AP / LAT / L5-S1 Pelvis X-Ray: Pelvis with Hip Left PERIPHERAL IV DATA: Not applicable SIGNED BY: RT Sheridan(Ana) May 29, 2021 10:56 [facility]04-11-2022 History of Present illness Narrative* MANJEET Swartz) - 05/29/2021 10:45 AM EDT Radiology Service Progress Note PATIENT NAME: Maged Sánchez DATE OF SERVICE: May 29, 2021 TIME: 10:56 AM PATIENT IDENTITY VERIFICATION COMPLETED USING TWO (2) IDENTIFIERS: Name and Date of confirmedby patient verbally. FALL SCREENING: Has the patient had 2 falls in the last year or 1 fall with injury or currently using an Ambulatory Assistive Device (Walker, Cane, Wheelchair, Crutches, etc.)? No PATIENT GENDER DATA: Male PATIENT RELEVANT IMPLANT DATA REVIEWED: Yes RADIOLOGY DEPARTMENT: General X-ray: Exam(s) Completed: Spine X-Ray(s): Lumbar AP / LAT / L5-S1 Pelvis X-Ray: Pelvis with Hip Left PERIPHERAL IV DATA: Not applicable SIGNED BY: RT Sheridan(Ana) May 29, 2021 10:56 AM [facility] NoteHNO ID: [id number] Author: RT Blayne(R) Service: ? Author Type: Technologist Type: Progress Notes Filed: 02/14/2021 1:27 PM Note Text: Radiology Service Progress Note PATIENT NAME: Maged Sánchez DATE OF SERVICE: February 14, 2021 TIME: 1:26 PM PATIENT IDENTITY VERIFICATION COMPLETED USING TWO (2) IDENTIFIERS: Name and Date of confirmed by patient verbally. FALL SCREENING: Has the patient had 2 falls in the last year or 1 fall with injury or currently using an Ambulatory Assistive Device (Walker, Cane, Wheelchair, Crutches, etc.)? No PATIENT GENDER DATA: Male PATIENT RELEVANT IMPLANT DATA REVIEWED: Not Applicable RADIOLOGY DEPARTMENT: General X-ray: Exam(s) Completed: Chest X-Ray PERIPHERAL IV DATA: Not applicable SIGNED BY: RT Balyne(R) February 14, 2021 1:26 [facility] Diagnosis Onset Date Resolution Status Low back strain acute Herniated nucleus pulposus, L3-4 left acute Back problem chronic Depression chronic Hypertension [facility] Work Phone: Evaluation note* Diagnosis Onset Date Resolution Status Low back strain acute URI (upper respiratory infection) acute Chronic pain chronic Hypertension chronic COVID-19 acute COVID acute Hypertension chronic IBS (irritable bowel syndrome) chronic Tobacco abuse [facility] Work Phone: Evaluation note* Diagnosis Onset Date Resolution Status Low back strain acute URI (upper respiratory infection) acute Chronic pain chronic Hypertension chronic COVID-19 acute COVID acute Hypertension chronic IBS (irritable bowel syndrome) chronic Tobacco abuse chronic Low back pain acute COPD (chronic obstructive pulmonary disease) chronic [facility] Work Phone: Evaluation note* Diagnosis Onset Date Resolution Status Low back strain acute Lumbar radiculopathy acute Contact with and (suspected) exposure to other viral communicable diseases acute COPD (chronic obstructive pulmonary disease) chronic Hypertension chronic Tobacco abuse chronic Asthma acute 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 acute [facility] Work Phone: Evaluation note* Diagnosis Onset Date Resolution Status Insomnia acute Asthma chronic 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 Degenerative disc disease ac selena Chronic pain chronic COPD (chronic obstructive pulmonary disease) chronic Depression chronic Hypertension chronic [facility] Work Phone: [facility] Work Phone: Reason for referral (narrative)No reason for referral information [facility]Brun[facility] Work Phone: Summary Purpose Family History No Family History Records Found Relationship Condition Age at Onset Recorded Date/T alex mother Cardiac disease Unknown Hypertension Unknown Osteoporosis Unknown Cerebrovascular accident (CVA) Unknown father Cardiac disease Unknown Unknown sister Malignant neoplasm Unknown Kidney disorder Unknown Disorder of thyroid Unknown grandfather Alcoholism Unknown grandmother Malignant neoplasm of colon Unknown Advance Directives No Advanced Directives Records Found Advance Directive Response Recorded Date/ Time Advance Directives No May 20 1:11pm Living Will No May 21, 2019 1:11pm Power of Admission Discharge Rn No May 20 1:11pm Advance Directive Response Recorded Date/ Time Advance Directives No September 19 023 9:03am Living Will No September 19, 2022 9:03am Power of Admission Discharge Rn No September 19 9:03am Advance Directive Response Recorded Date/ Time Advance Directives No September 19 023 9:03am Chief Complaint and Reason for Visit Chief Complaint pulled muscle Lumbar pain xray 1 M FU HNP L3-4/RX HERE Reason for Visit Low back strain Herniated nucleus pulposus, L3-4 left Back problem Depression Hypertension Chief Complaint PERSONAL SINUS PRESSURE/COUGH/FEVER/WANTS COVID TEST CHECK UP EORDER- CHEST XRAY chronic cough Reason for Visit Low back strain URI (upper respiratory infection) Chronic pain Hypertension COVID-19 COVID Hypertension IBS (irritable bowel syndrome) Tobacco abuse Chief Complaint PERSONAL SINUS PRESSURE/COUGH/FEVER/WANTS COVID TEST CHECK UP EORDER- CHEST XRAY chronic cough copd fu CHRONIC OBSTRUCTIVE PULMONARY DISEASE CHRONIC OBSTRUCTIVE PULMONARY DISEASE Reason for Visit Low back strain URI (upper respiratory infection) Chronic pain Hypertension COVID-19 COVID Hypertension IBS (irritable bowel syndrome) Tobacco abuse Low back pain COPD (chronic obstructive pulmonary disease) Chief Complaint LOW BACK PAIN EORDER- lbp w/ rle paresthesias EXPOSED TO COVID FU BACK ISSUES AND XRAY RESULTS Z87.891 Personal history of nicotine dependence Lung Nodule SOLITARY PULMONARY NODULE Reason for Visit Low back strain Lumbar radiculopathy Contact with and (suspected) exposure to other viral communicable diseases COPD (chronic obstructive pulmonary disease) Hypertension Tobacco abuse Asthma 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 Chief Complaint 3 M FU 3 m fu SOLITARY PULMONARY NODULE Reason for Visit Insomnia Asthma 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 Degenerative disc disease Chronic pain COPD (chronic obstructive pulmonary disease) Depression Hypertension Chief Complaint Admit Date chk up January 28, 2024 11:10am LUMABR SPINE February 18, 2024 11:49am Xray room 2 February 18, 2024 12:24pm LUMBAR RADICULOPATHY April 16, 2024 3:56pm LUMBAR SPINE April 23, 2024 9:54 am Reason for Visit Admit Date Low back pain January 28, 2024 11:10am Lumbar radiculopathy January 28, 2024 11:10am History of lumbar fusion February 18, 2024 11:49am Lumbar radiculopathy February 18, 2024 11:49am History of lumbar fusion April 23, 2024 9:54am Lumbar radiculopathy April 23, 2024 9:5 4am Chief Complaint Admit Date FOLLOW UP May 19, 2024 10:0 8am Congestion / Upper Resp September 14, 2024 12:09pm Reason for Visit Admit Date BPH (benign prostatic hyperplasia) May 19, 2024 10:08am Lumbar radiculopathy May 19, 2024 10: 08am COPD (chronic obstructive pulmonary dise ase) May 19, 2024 10:08am Tobacco abuse May 19, 2024 10:0 8am Acute sinusitis, unspecified September 14, 2024 12:09pm Chief Complaint Admit Date Congestion / Upper Resp September 14, 2024 12:09pm Acute Sick September 25, 2024 9:4 8am Reason for Visit Admit Date Acute sinusitis, unspecified September 14, 2024 12:09pm Chief Complaint Admit Date Congestion / Upper Resp September 14, 2024 12:09pm Acute Sick September 25, 2024 9:4 8am INT LAB September 28, 2024 9: 36am Reason for Visit Admit Date Acute sinusitis, unspecified September 14, 2024 12:09pm Asthma September 25, 2024 9:4 8am Seasonal allergies September 25, 2024 9:4 8am Chief Complaint Admit Date Congestion / Upper Resp September 14, 2024 12:09pm Acute Sick September 25, 2024 9:4 8am INT LAB September 28, 2024 9: 36am 3 wk fu October 15, 2024 12 :42pm Reason for Visit Admit Date Acute sinusitis, unspecified September 14, 2024 12:09pm Asthma September 25, 2024 9:4 8am Seasonal allergies September 25, 2024 9:4 8am 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 Shane Das , DO Family Provider Active Dr. Shane Das , DO Primary Care Provider Active Team Status: Inactive Member Role Status Dates Dr. Shane Das , DO Primary Care Pr ovider, Attending Provider, Referring Provider Active Team Status: Inactive Member Role Status Dates Dr. Shane Das , DO Primary Care Provider, Referr ing Provider Active Bigg JOHNSON, [place] Attending Provider Active Team Status: Active Member Role Status Dates Dr. Shane Das , DO Primary Care Pr ovider, Referring Provider, Other Provider Active Dr. Mack Das , DO Attending Provider Active Team Status: Inactive Member Role Status Dates Dr. Shane Das , DO Primary Care Provider, Referr ing Provider Active Alonso JOHNSON, [place] Attending Provider Active Team Status: Inactive Member Role Status Dates Dr. Shane Das , DO Primary Care Provider, Referr ing Provider Active Dr. Dieudonne Reeder MD Attending Provider Active Team Status: Inactive Member Role Status Dates Dr. Shane Das DO Primary Care Provider Active Alonso JOHNSON, [place] Attending Provider, Referring Pr ovider Active Team Status: Inactive Member Role Status Dates Dr. Shane Das DO Primary Care Provider Active Dr. Dieudonne Reeder MD Attending Provider, Referring Pr ovider Active Team Status: Inactive Member Role Status Dates Dr. Shane Das DO Primary Care Provider, Referr ing Provider Active Antonette Patterson BIODIESEL ENGINE SPECIALIST, BIODIESEL ENGINE SPECIALIST-C Attending Provider Active Team Status: Inactive Member Role Status Dates Dr. Shane Das DO Primary Care Provider Active Antonette Patterson BIODIESEL ENGINE SPECIALIST, BIODIESEL ENGINE SPECIALIST-C Attending Provider, Referrin g Provider Active Team Status: Active Member Role Status Dates Dr. Shane Das DO Primary Care Provider Active Team Status: Inactive Member Role Status Dates Dr. Shane Das DO Primary Care Provider Active Start: January 28, 2024 End: January 28, 2024 Dr. Shane Das DO Attending Provider Active Start: January 28, 2024 End: January 28, 2024 Dr. Shane Das DO Referring Provider Active Start: January 28, 2024 End: January 28, 2024 Team Status: Inactive Member Role Status Dates Dr. Shane Das DO Primary Care Provider Active Start: February 18, 2024 End: February 18, 2024 Dr. Shane Das DO Referring Provider Active Start: February 18, 2024 End: February 18, 2024 ALEX High Attending Provider Active Star t: February 18, 2024 End: February 18, 2024 Team Status: Inactive Member Role Status Dates Dr. Shane Das DO Primary Care Provider Active Start: February 18, 2024 End: February 18, 2024 Dr. Porfirio Kauffman MD Attending Provider Active S tart: February 18, 2024 End: February 18, 2024 Team Status: Inactive Member Role Status Dates Dr. Shane Das DO Primary Care Provider Active Start: April 16, 2024 End: April 16, 2024 ALEX High Attending Provider Active Star t: April 16, 2024 End: April 16, 2024 ALEX High Referring Provider Active Star t: April 16, 2024 End: April 16, 2024 Team Status: Inactive Member Role Status Dates Dr. Shane Das DO Primary Care Provider Active Start: April 23, 2024 End: April 23, 2024 Dr. Shane Das DO Referring Provider Active Start: April 23, 2024 End: April 23, 2024 ALEX High Attending Provider Active Star t: April 23, 2024 End: April 23, 2024 Team Status: Active Member Role/Relationship Status Dates Dr. Shane Das DO Primary Care Provider Active Team Status: Inactive Member Role/Relationship Status Dates Dr. Shane Das DO Primary Care Provider Active Start: May 19, 2024 End: May 19, 2024 Dr. Shane Das DO Attending Provider Active Start: May 19, 2024 End: May 19, 2024 Dr. Shane Das DO Referring Provider Active Start: May 19, 2024 End: May 19, 2024 Team Status: Inactive Member Role/Relationship Status Dates Dr. Shane Das DO Primary Care Provider Active Start: September 14, 2024 End: September 14, 2024 Dr. Shane Das DO Referring Provider Active Start: September 14, 2024 End: September 14, 2024 Yari Garcia NP-C Attending Provider Active Start: September 14, 2024 End: September 14, 2024 Team Status: Inactive Member Role/Relationship Status Dates Dr. Shane Das DO Primary Care Provider Active Start: September 14, 2024 End: September 14, 2024 Dr. Shane Das DO Referring Provider Active Start: September 14, 2024 End: September 14, 2024 Yari Garcia NP-C Attending Provider Active Start: September 14, 2024 End: September 14, 2024 Team Status: Inactive Member Role/Relationship Status Dates Dr. Shane Das DO Primary Care Provider Active Start: September 25, 2024 End: September 25, 2024 Dr. Shane Das DO Referring Provider Active Start: September 25, 2024 End: September 25, 2024 Antonette Patterson NP BIODIESEL ENGINE SPECIALIST-C Attending Provider Active Start: September 25, 2024 End: September 25, 2024 Team Status: Inactive Member Role/Relationship Status Dates Dr. Shane Das DO Primary Care Provider Active Start: September 25, 2024 End: September 25, 2024 Antonette Patterson BIODIESEL ENGINE SPECIALIST, BIODIESEL ENGINE SPECIALIST-C Attending Provider Active Start: September 25, 2024 End: September 25, 2024 Antonette Patterson BIODIESEL ENGINE SPECIALIST, BIODIESEL ENGINE SPECIALIST-C Referring Provider Active Start: September 25, 2024 End: September 25, 2024 Team Status: Active Member Role/Relationship Status Dates Dr. Shane Das DO Primary Care Provider Active Start: September 28, 2024 Antonette Patterson NP, BIODIESEL ENGINE SPECIALIST-C Attending Provider Active Start: September 28, 2024 Antonette Patterson NP, BIODIESEL ENGINE SPECIALIST-C Referring Provider Active Start: September 28, 2024 Team Status: Inactive Member Role/Relationship Status Dates Dr. Shane Das DO Primary Care Provider Active Start: September 28, 2024 End: September 28, 2024 Antonette Patterson NP, BIODIESEL ENGINE SPECIALIST-C Attending Provider Active Start: September 28, 2024 End: September 28, 2024 Antonette Patterson NP, BIODIESEL ENGINE SPECIALIST-C Referring Provider Active Start: September 28, 2024 End: September 28, 2024 Team Status: Inactive Member Role/Relationship Status Dates Dr. Shane Das DO Primary Care Provider Active Start: October 15, 2024 End: October 15, 2024 Dr. Shane Das DO Referring Provider Active Start: October 15, 2024 End: October 15, 2024 Antonette Patterson NP, BIODIESEL ENGINE SPECIALIST-C Attending Provider Active Start: October 15, 2024 End: October 15, 2024 (unrecognized sect ion and content) No Status Records FoundNo Status Records Found INFORMATION SOURCE (unrecogn ized section and content) DATE CREATED AUTHOR 05/30/2021 [facility] DATE CREATED AUTHOR AUTHOR'S ORGANIZ ATION 10/17/2024 [facility] Goals (unrecognized section and content) Goals may be documented in a n alternate sectionGoals may be documented in an alternate sectionGoals may be documented in an alternate sectionGoals may be documented in an alternate sectionGoals may be documented in an alternate sectionGoals may be documented in an alternate sectionGoals may be documented in an alternate sectionGoals may be documented in an alternate sectionGoals may be documented in an alternate sectionGoals may be documented in an alternate sectionGoals may be documented in an alternate section FOR RECORDS PERTAINING TO PATIENTS WHO ARE OR HAVE BEEN ENROLLED IN A CHEMICAL DEPENDENCY/SUBSTANCEABUSE PROGRAM, SOME INFORMATION MAY BE OMITTED. This clinical summary was aggregated from multiple sources. Caution should be exercised in using it in the provision of clinical care. This summary normalizes information from multiple sources, and as a consequence, information in this document may materially change the coding, format and clinical context of patient data. In addition, data may be omitted in some cases. CLINICAL DECISIONS SHOULD BE BASED ON THE PRIMARY CLINICAL RECORDS. [facility] [employer] [facility]. provides no warranty or guarantee of the accuracy or completeness of information in this document.
== END 2024-10-22 23:59 | disposition home or self-care (01) ==
LOC: LABSPEC 07:07
PROVIDERS: PCP Family Medicine; Referring Provider Nurse Practitioner Acute Care; Visit Provider Nurse Practitioner Acute Care
DX: J45.909 Unspecified asthma, uncomplicated (principal)
CPT/HCPCS: 87070; 87205

== ENCOUNTER → 2024-10-27 | Outpatient (CLI) | payer MEDICARE, SELFPAY ==
[2024-10-27 12:33] LABS: Hematocrit 46.3 % (40-54); Hemoglobin 15.2 g/dL (13.0-16.5); Immature Granulocytes Count 0.090 X10^3/uL (0.0-0.0); Mean Corp Hgb Conc 32.8 g/dL (32-36); Mean Corpuscular Volume 87.0 fL (80-94); Mean Platelet Vol. 9.9 fl (6.2-12.0); NRBC Flagged by Analyzer 0 % (0-5); Platelet Count 292 K/mm3 (150-450); RBC Distribution Width CV 15.9 % (11.6-14.6); RBC Distribution Width SD 50.1 fl (35.1-43.9); Red Blood Count 5.32 M/mm3 (4.6-6.2); White Blood Count 14.2 K/mm3 (4.4-11.0)
[2024-10-27 13:39] LABS: AST(SGOT) 23 U/L (<=37); Alanine Aminotransfer ALT/SGPT 25 U/L (<=46); Albumin, Serum 4.5 g/dL (3.4-4.8); Alkaline Phosphatase 61 U/L (40-129); Anion Gap 12 (5-15); BUN 20 mg/dL (4-19); BUN/Creat Ratio 16.2 RATIO (10-20); Calcium,Total 9.8 mg/dL (7.6-11.0); Carbon Dioxide 26.2 mmol/L (21.0-32.0); Chloride 103 mmol/L (98-108); Globulin 2.5 g/dL (2.2-4.2); Glucose 126 mg/dL (70-99); Potassium 4.6 mmol/L (3.3-5.1)
== END | disposition home or self-care (01) ==
LOC: BIMLAB 11:29
PROVIDERS: PCP Family Medicine; Referring Provider Family Medicine; Visit Provider Family Medicine
DX: I10 Essential (primary) hypertension (principal)
CPT/HCPCS: 36415; 80053; 85025

== ENCOUNTER → 2024-12-03 | Outpatient (CLI) | payer MEDICARE, SELFPAY ==
--- NOTE | 2024-12-03 12:39 | CT_ITS ---
PROCEDURE: CHEST WITHOUT CONTRAST 12/03/2024 REASON FOR EXAM: LUNG NODULE IN SMOKER TECHNIQUE: Chest CT without contrast. Coronal and Sagittal reconstruction series were provided. One or more dose reduction techniques were used (e.g., Automated exposure control, adjustment of the mA and/or kV according to patient size, use of iterative reconstruction technique RADIATION DOSE SUMMARY: CTDlvol: 15.09 mGy DLP: 546.66 mGycm COMPARISON: CT chest with contrast, 12/02/2023. FINDINGS: Lower neck:The thyroid gland is normal. There is no supraclavicular lymphadenopathy. Mediastinum:No abnormal masses or lymphadenopathy. There are benign calcified right hilar and subcarinal lymph nodes. Heart and Vasculature:The heart size is normal. There is no pericardial effusion. There is moderate calcific vascular disease of the coronary arteries and thoracic aorta. Esophagus:Normal. Upper Abdomen:There are multiple small hepatic cysts. There are multiple benign calcified splenic granulomas. There is a benign splenule in the splenic hilum. There is calcific vascular disease of the visualized abdominal aorta. Chest wall:The soft tissues of the chest wall appear unremarkable. There is no axillary lymphadenopathy. 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 Lungs, airways and pleura: There is mild upper lobe predominant paraseptal emphysema. There is a benign calcified granuloma in the middle lobe of the right lung. There is a soft tissue density nodule in the posterior basilar segment of the lower lobe of the left lung, measuring 13 x 10 mm (was 12 x 11 mm). There are no new pulmonary nodules evident. There are no pleural effusions. CT/Chest without Contrast IMPRESSION: 1. Stable soft tissue density nodule in the lower lobe of the left lung. 2. There are no new pulmonary nodules. 3. Emphysema. 4. Calcific vascular disease. 5. Other findings as noted, not significantly changed. Reading Location: [place] [id number]
--- OUTSIDE RECORDS SUMMARY | 2024-12-03 13:01 | XMS RPT_ITS | CCD ---
Author Organization [facility] Care Team Providers Care Soda Flaker Name Role Phone Shane Das DO Primary Care Provider Dr. Shane Das Primary Care Provider [phone] Dr. Shane Das Referring Provider ALEX Barillas Attending Provider Unavailab Dr. William Gillis Attending Provider Dr. Porfirio Kauffman Attending Provider Dr. Shane Das Attending Provider Dr. Shane Das Primary Care Provider [phone] Dr. Shane Das Attending Provider Dr. Shane Das Referring Provider ALEX Valentin Attending Provider Dr. Shane Das Other Provider Dr. Mack Das Attending Provider Dr. Shane Das Primary Care Provider [phone] Dr. Shane Das Referring Provider [phone] Carl JOHNSON, [place] Alonso Sesay Attending Provider Dr. Shane Das Attending Provider [phone] Dr. Dieudonne Reeder Attending Provider Dr. Shane Das Primary Care Provider [phone] Dr. Shane Das Referring Provider [phone] Leonardo WELDING EQUIPMENT REPAIRER, WELDING EQUIPMENT REPAIRER-C Antonette Attending Provider [phone] Dr. Shane Das Attending Provider [phone] Shane Das DO Primary Care Provider [phone] Dr. Shane Das DO Attending Provider [phone] Dr. Shane Das DO Referring Provider [phone] Amalia Short Attending Provider [phone] Jamari WINTER, Dr. Monroy Attending Provider [phone] Amalia Short Referring Provider [phone] Shane Das DO Primary Care Provider Dr. Shane Das DO Attending Provider [phone] Dr. Shane Das DO Referring Provider [phone] Radha WELDING EQUIPMENT REPAIRER-CYari Attending Provider [phone] Shane Das DO Primary Care Provider Dr. Shane Das DO Referring Provider [phone] Leonardo WELDING EQUIPMENT REPAIRER-CAntonette Attending Provider Leonardo WELDING EQUIPMENT REPAIRER-CAntonette Referring Provider Dr. Shane Das DO Attending Provider [phone] Dr. Shane Das DO Primary Care Physician Radha WELDING EQUIPMENT REPAIRER-CYari Attending Physician Leonardo WELDING EQUIPMENT REPAIRER-CAntonette Attending Physician Dr. Shane Das DO Attending Physician [phone] Brown, Shane R Primary Care Unavailable Brown, Shane R Referring Unavailable Leonardo WELDING EQUIPMENT REPAIRER, Antonette Attending Unavailable BrownShane R Attending Unavailable Brown, Shane R Primary Care Unavailable Brown, Shane R Referring Unavailable Brown, Shane R Attending Unavailable Brown, Shane R Primary Care Unavailable Brown, Shane R Referring Unavailable Brown, Shane R Primary Care Unavailable Brown, Shane R Referring Unavailable Amalia Ferris Attending Unavailable Brown, Shane R Attending Unavailable Brown, Shane R Primary Care Unavailable Brown, Shane R Referring Unavailable Brown, Shane R Primary Care Unavailable Brown, Shane R Referring Unavailable Yari Garcia Attending Unavailable Brown, Shane R Referring Unavailable Brown, Shane R Primary Care Unavailable Patterson WELDING EQUIPMENT REPAIRER, Antonette Attending Unavailable Brown, Shane R Referring Unavailable Patterson WELDING EQUIPMENT REPAIRER, Antonette Attending Unavailable Brown, Shane R Primary Care Unavailable Brown, Shane R Primary Care Unavailable Brown, Shane R Referring Unavailable Josy, Amalia Attending Unavailable Brown, Shane R Primary Care Unavailable Porfirio Kauffman Attending Unavailable Brown, Shane R Primary Care Unavailable Patterson WELDING EQUIPMENT REPAIRER, Antonette Referring Unavailable Patterson WELDING EQUIPMENT REPAIRER, Antonette Attending Unavailable Brown, Shane R Referring Unavailable Brown, Shane R Attending Unavailable Brown, Shane R Primary Care Unavailable Brown, Shane R Primary Care Unavailable Josy, Amalia Referring Unavailable Josy, Amalia Attending Unavailable Brown, Shane R Primary Care Unavailable Horn, Fidelia Referring Unavailable Horn, Fidelia Attending Unavailable Patterson WELDING EQUIPMENT REPAIRER, Antonette Attending Unavailable Patterson WELDING EQUIPMENT REPAIRER, Antonette Referring Unavailable Brown, Shane R Primary Care Unavailable Patterson WELDING EQUIPMENT REPAIRER, Antonette Attending Unavailable Patterson WELDING EQUIPMENT REPAIRER, Antonette Referring Unavailable Brown, Shane R Primary Care Unavailable Brown, Shane R Primary Care Unavailable Patterson WELDING EQUIPMENT REPAIRER, Antonette Referring Unavailable Patterson WELDING EQUIPMENT REPAIRER, Antonette Attending Unavailable Patterson WELDING EQUIPMENT REPAIRER, Antonette Attending Unavailable Patterson WELDING EQUIPMENT REPAIRER, Antonette Referring Unavailable Brown, Shane R Primary Care Unavailable Allergies Allergy Classification Reported Allergen(s) Allergy Type Date of Onset Reaction(s) Facility (14 sources) fexofenadine Drug Allergy 2 [facility] (15 sources) Grass pollen; Translations: [grass pollen] Allergy to substance 2 Watery eyes,Sneezing, Runny nose, [facility] (14 sources) Sertraline Drug Allergy 2 suicidal thoughts [facility] (11 sources) Pollen Allergy to substance 3 Congestion [facility] (1 source) fexofenadine Drug Allergy 5 [facility] (1 source) Pollen Drug allergy (disorder) 5 [facility] (1 source) Sertraline Drug Allergy 5 [facility] Medications Current Medications Medication Drug Class(es) Dates Sig (Normalized) Sig (Original) acetaminophen 325 mg oral capsule (7 sources) Start: 09-25-2024 take 1 capsule by mouth once as needed Budesonide-Formoterol (20 sources) Corticosteroid, beta2-Adrenergic Agonist Start: 10-07-2024 Start: 10-07-2024 Budesonide-For moterol (Symbicort) 160-4.5 mcg/actuation HFA aerosol inhaler Active 2 NMA INHALATION TWICE A DAY 10.2 11 October 07, 2024 1:17pm Start: 08-27-2023 End: 10-07-2024 Budesonide-Formoterol (Symbi bharati) 160-4.5 mcg/actuation HFA aerosol inhaler Discontinued 2 NMA INHALATION TWICE A DAY 10.2 11 August 27, 2023 12:21pm October 07, 2024 [...] daily. cetirizine hydrochloride 10 mg oral tablet (7 sources) Histamine-1 Receptor Antagonist Start: 09-25-2024 take 1 tablet by mouth once daily as needed 2 ml dupilumab 150 mg/ml auto-injector (8 sources) Interleukin-4 Receptor alpha Antagonist Start: 10-15-2024 Start: 10-15-2024 fluticasone propionate 0.05 mg/actuat metered dose nasal spray (20 sources) Corticosteroid Start: 01-28-2024 take 50 ug nasal rou te once daily Start: 01-17-2018 End: 03-01-2022 take 50 ug [...] 01, 2022 12:00pm administer into each nostril hydroCHLOROthiazide 25 mg or al tablet (20 sources) Thiazide Diuretic Start: 10-27-2024 Start: 07-17-2022 End: 04-02-2023 Hydrochlorothiazide 25 mg ta blet Discontinued NMA PO July 17, 2022 12:00am April 02, 2023 1:28pm Start: 03-04-2017 End: 05-07-2023 Hydrochlorothiazide 25 mg ta blet Discontinued 0 .ROUTE .COMPLEX 90 3 April 02, 2023 1:28pm May 07, 2023 10:45am TAKE 1 TABLET DAILY meloxicam 15 mg oral tablet (20 sources) Nonsteroidal Anti-inflammatory Drug Start: 07-30-2024 End: 09-29-2024 take 1 tablet by mouth once daily Start: 06-11-2023 End: 12-24-2023 take 1 tablet [...] tablet Discontinued 15 mg PO DAILY 90 3 February 14, 2022 10:05am May 17, 2022 1:13pm Start: 03-04-2017 End: 01-20-2019 take 1 tablet by mouth once daily Meloxicam 15 mg tablet Discontinued 15 mg PO DAILY 90 1 September 26, 2018 3:37pm January 20, 2019 1:35pm Multivitamin preparation (5 sources) Start: 2017 Multivitamin A ctive 1 EACH PO DAILY 2017 11:23am Start: 2017 End: 03-01-2022 Multivitamin Discontinued 1 EACH PO DAILY 2017 12:00am March 01, 2022 11:58am Vit C-Zinc Citrate-Elderberr y ([facility]) 45-3.75-50 mg tablet,chewable (13 sources) Start: 05-17-2022 Start: 05-17-2022 Vit C-Zinc Cit rate-Elderberry ([facility]) 45-3.75-50 mg tablet,chewable Active {tbl} PO May 17, 2022 12:00am Start: 05-17-2022 Vit C-Zinc Cit rate-Elderberry (E[facility]) 45-3.75-50 mg tablet,chewable Active TABLET PO May 17, 2022 12:00am Completed/Discontinued Medications Medication Drug Class(es) Dates Sig (Normalized) Sig (Original) acetaminophen 500 mg / diphenhydrAMINE hydrochloride 25 mg oral tablet (17 sources) Histamine-1 Receptor Antagonist Start: 05-07-2023 End: [...] 1 {tbl} PO AT BEDTIME as needed 0 June 27, 2021 12:00am March 01, 2022 [...] 2021 June 17, 2021 12:05am Albuterol Sulfate (15 sources) beta2-Adrenergic Agonist Start: 01-17-2018 End: 07-11-2018 [...] EVERY 6 HOURS 8 January 17, 2018 1:00am July 11, [...] oral tablet (20 sources) Penicillin-class Antibacterial Start: 5 End: 5 Amoxicillin-Pot Clavulanate 875-125 mg tablet Discontinued 1 {tbl} PO Q12H 20 0 September 14, 2024 12:00am September 25, 2024 [...] 1 {tbl} PO TWICE A DAY 20 September 02, 2021 10:14am March 01, 2022 11:55am Start: 09-02-2021 End: 03-01-2022 take 1 tablet by mouth twice daily Amoxicillin-Pot Clavulanate Discontinued 1 TABLET PO TWICE A DAY September 02, 2021 10:14am March 01, 2022 11:55am Start: 04-15-2019 End: 11-24-2019 Amoxicillin-Pot Clavulanate (Augmentin) 875-125 mg tablet Discontinued 1 {tbl} PO TWICE A DAY 20 April 15, 2019 1:00am November 24, 2019 [...] 4:44pm ascorbic acid 500 mg oral capsule (14 sources) Vitamin C Start: 02-05-2019 End: 03-01-2022 [...] End: 02-01-2018 Azithromycin Discontinued 0 PO .COMPLEX 6 January 17, 2018 1:00am February 01, 2018 [...] on above: Take 1 tablet by socorro once daily. benzocaine 15 mg / menthol 2.6 mg oral lozenge (14 sources) Standardized Chemical Allergen Start: 02-13-2021 End: 03-01-2022 Benzocaine-Menthol 15-2.6 mg lozenge Discontinued 1 NMA MUCOUS MEM Q2H as needed for sore throat 16 February 13, 2021 1:00am March 01, 2022 12:01pm Start: 02-13-2021 End: 03-01-2022 Benzocaine-Menthol Discontin ued 1 LOZENGE MUCOUS MEM Q2H 16 February 13, 2021 1:00am March 01, 2022 12:01pm benzonatate 200 mg oral capsule (14 sources) Non-narcotic Antitussive Start: 02-13-2021 End: 03-01-2022 Benzonatate 200 mg capsule Discontinued 200 mg PO 2 to 3 times per day as needed for cough 60 February 13, 2021 1:00am March 01, 2022 12:01pm celecoxib 100 mg oral capsule (14 sources) Nonsteroidal Anti-inflammatory Drug Start: 01-20-2019 End: 02-05-2019 take 1 capsule by mouth once daily Celecoxib 100 mg capsule Discontinued 100 mg PO DAILY January 20, 2019 1:00am February 05, 2019 2:10pm chlorpheniramine maleate Dextromethorphan HBr (13 sources) Start: 03-01-2022 End: 06-19-2022 chlorpheniramine maleate [...] 2017 2:08pm dexamethasone 6 mg oral tablet (13 sources) Corticosteroid Start: 04-07-2022 End: 05-17-2022 take 1 tablet by mouth once daily Dexamethasone 6 mg tablet Discontinued 6 mg PO DAILY 5 April 07, 2022 1:00am May 17, 2022 12:48pm dextromethorphan hydrobromide 10 mg / guaiFENesin 200 mg oral capsule (20 sources) Uncompetitive E-ksxxpq-W-aspartat e Receptor Antagonist, Sigma-1 Agonist Start: 06-27-2021 End: 03-01-2022 Dextromethorphan-G uaifenesin (Coricidin Hbp Chest Sanjay-Cough) 10-200 mg capsule Discontinued 1 NMA PO ONCE as needed June 27, 2021 12:00am March 01, 2022 12:00pm Start: 05-13-2018 End: 05-29-2018 Dextromethorphan-Guaifenesin (Coricidin Hbp) 10-200 mg capsule Discontinued 1 NMA PO ONCE as needed May 13, 2018 12:00am May 29, 2018 1:44pm diazePAM 10 mg oral tablet (19 sources) Benzodiazepine Start: 03-11-2024 End: 03-12-2024 take [...] take 1/[address] scan Xc-Iskidtqillpag-Hd (2 sources) Start: 11-07-2022 End: 05-07-2023 Jo-Caoxkrivphrkl-Eb Disconti nued ML PO November 07, 2022 12:00am May 07, 2023 10:32am Start: 11-07-2022 Dm-Acetaminoph en-Gg Active ML PO November 07, 2022 12:00am Lg-Onkmbqlwoxbai-Pu liquid (9 sources) Start: 11-07-2022 End: 05-07-2023 Vk-Wuvzavzbdyhkp-Rm liquid Discontinued mL PO November 07, 2022 12:00am May 07, 2023 10:32am docusate sodium 100 mg oral capsule (13 sources) Start: 03-01-2022 End: 07-25-2023 take 1 [...] sinusitis, unspecified FLUoxetine 10 mg oral capsule (14 sources) Serotonin Reuptake Inhibitor Start: 02-04-2019 End: 03-11-2019 take 1 capsule by mouth once daily Fluoxetine 10 mg capsule Discontinued 10 mg PO DAILY 10 3 February 04, 2019 1:00am March 11, 2019 12:40pm gabapentin 800 mg oral tablet (14 sources) Anti-epileptic Agent Start: 03-04-2017 End: 09-25-2017 [...] 29, 2018 12:00am July 11, 2018 9:17am ibuprofen 400 mg oral tablet (14 sources) Nonsteroidal Anti-inflammatory Drug Start: 02-13-2021 End: [...] Discontinued 0 PO per package directions 21 0 July 17, 2022 12:00am November 07, 2022 [...] Discontinued 10 mg PO EVERY EVENING 90 April 15, 2019 2:41pm March 01, 2022 11:59am Multivitamin 1 EACH tablet (9 sources) Start: 2017 End: 03-01-2022 Multivitamin 1 EACH tablet Discontinued 1 NMA PO DAILY 2017 12:00am March 01, 2022 11:58am ondansetron 4 mg oral tablet (14 sources) Serotonin-3 Receptor Antagonist Start: 01-29-2019 End: 02-03-2019 take 1 tablet by mouth three times daily as needed for nausea and vomiting Ondansetron Hcl 4 mg tablet Discontinued 4 mg PO THREE TIMES A DAY as needed for nausea and vomiting 6 5 0 January 29, 2019 1:00am February 02, 2019 1:00am February 03, 2019 1:09am predniSONE 10 mg oral tablet (20 sources) Start: 10-15-2024 End: 10-27-2024 Prednisone 10 mg tablet Discontinued 10 mg PO daily 30 12 October 15, 2024 12:00am October 26, 2024 12:00am October 27, 2024 12:06am 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 [...] 08, 2023 12:00am December 24, 2023 3:44pm pregabalin 75 mg oral capsul e (20 sources) Start: 07-17-2022 End: 11-07-2022 Pregabalin 75 mg capsule Discontinued NMA PO July 17, 2022 12:00am November 07, 2022 1:32pm Start: 07-17-2022 End: 11-07-2022 Pregabalin Discontinued EACH PO July 17, 2022 12:00am November 07, 2022 1:32pm Start: 05-17-2022 End: 05-07-2023 take 1 capsule by mouth at bedtime Pregabalin 75 mg capsule Discontinued 75 mg PO AT BEDTIME 30 December 05, 2022 12:16pm May 07, 2023 [...] 2022 11:58am sertraline 50 mg oral tablet (14 sources) Serotonin Reuptake Inhibitor Start: 01-20-2019 End: 02-04-2019 take 1 tablet by mouth once daily Sertraline 50 mg tablet Discontinued 50 mg PO DAILY 30 January 20, 2019 1:00am February 04, 2019 1:50pm sulfacetamide sodium 100 mg/ml ophthalmic solution (14 sources) Sulfonamide Antibacterial Start: 02-17-2018 End: 02-24-2018 [...] once daily. tiZANidine 2 mg oral tablet (14 sources) Central alpha-2 Adrenergic Agonist Start: 07-11-2018 [...] 03, 2023 9:35am December 24, 2023 3:45pm Start: 11-07-2022 End: 12-17-2022 take 1 tablet by mouth once Varenicline Tartrate (Camargo tix Starting Box) 0.5 mg (11)- 1 mg (42) tablets,dose pack Discontinued 0 PO per package directions 53 0 November 07, 2022 12:00am December 17, 2022 4:51pm PO PER PKG DIR Varenicline (Chantix Starting Box) 0.5 mg (11)- [...] mg (11)- 1 mg (42) tablets,dose pack (7 sources) Start: 11-07-2022 End: 12-17-2022 take 1 tablet by mouth once Varenicline Tartrate (Chantix Starting Box) 0.5 mg (11)- 1 mg (42) tablets,dose pack Discontinued 0 PO per package directions 53 0 November 07, 2022 12:00am December 17, 2022 4:51pm PO PER PKG DIR Start: 11-07-2022 End: 12-17-2022 take 1 tablet by mouth once Varenicline Tartrate (Camargo tix Starting Month Box) 0.5 mg (11)- 1 mg (42) tablets,dose pack Discontinued 0 PO per package directions 53 November 07, 2022 12:00am December 17, 2022 4:51pm PO PER PKG DIR zolpidem tartrate 10 mg oral tablet (14 sources) gamma-Aminobutyric Acid-ergic Agonist Start: 08-27-2018 End: 02-05-2019 take 1 tablet by mouth at bedtime Zolpidem 10 mg tablet Discontinued 10 mg PO AT BEDTIME 20 0 August 27, 2018 12:00am February 05, 2019 2:09pm Problems Active Problems Problem Classification Problem Date Documented Da te Episodic/Chronic Alcohol-related disorders (14 sources) Alcohol abuse; Translations: [Alcohol abuse, uncomplicated] 11-06-2017 Chronic Asthma (20 sources) Asthma; Translations: [Unspecified asthma, uncomplicated] Onset: 10-01-2024 12-05-2022 Chronic Asthma (1 source) Asthma; 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] Onset: 10-27-2024 Blindness and vision defects (14 sources) Disorder of vision; Translations: [Unspecified visual loss] 11-06-2017 Chronic Chronic kidney disease (9 sources) Chronic kidney disease stage 3; Translations: [Stage 3 chronic kidney disease] 09-24-2023 Chronic Chronic obstructive pulmonary disease and bronchiectasis (20 sources) Chronic obstructive lung disease; Translations: [Chronic obstructive pulmonary disease, unspecified] Onset: 03-23-2011 03-23-2011 Chronic Chronic ulcer of skin (14 sources) Ulcer; Translations: [Ulcerative lesion] 11-06-2017 Chronic Diseases of mouth; excluding dental (11 sources) Aphthous ulcer of mouth; Translations: [Recurrent oral aphthae] 09-19-2022 Episodic Essential hypertension (20 sources) Hypertensive disorder; Translations: [Essential (primary) hypertension] Onset: 03-23-2011 03-23-2011 Chronic Headache; including migraine (14 sources) Chronic headache disorder; Translations: [Chronic headache] 11-06-2017 Episodic Hyperplasia of prostate (13 sources) Benign prostatic hyperplasia; Translations: [Benign prostatic hyperplasia without lower urinary tract symptoms] Onset: 10-27-2024 05-19-2024 Chronic Immunizations and screening for infectious disease (12 sources) Contact with and (suspected) exposure to other viral communicable diseases; Translations: [Contact with or suspected exposure to other viral communicable disease] 10-23-2022 Episodic Inflammation; infection of eye (except that caused by tuberculosis or sexually transmitteddisease) (14 sources) Conjunctivitis; Translations: [Unspecified conjunctivitis] 02-17-2018 Episodic Mood disorders (16 sources) Depressive disorder; Translations: [Depression] Chronic Osteoarthritis (14 sources) Arthritis; Translations: [Unspecified osteoarthritis, unspecified site] 11-06-2017 Chronic Other connective tissue disease (10 sources) Cramp; Translations: [Cramp and spasm] 02-06-2023 Episodic Other connective tissue disease (11 sources) History of lumbar fusion; Translations: [Arthrodesis status] 02-18-2024 Episodic Other ear and sense organ disorders (14 sources) Hearing disorder; Translations: [Unspecified hearing loss, unspecified ear] 11-06-2017 Chronic Other gastrointestinal disorders (14 sources) Irritable bowel syndrome; Translations: [Irritable bowel syndrome without diarrhea] 11-06-2017 Chronic Other gastrointestinal disorders (2 sources) Irritable bowel syndrome without diarrhea; Translations: [Irritable bowel syndrome] 05-17-2022 Chronic Other gastrointestinal disorders (9 sources) Diarrhea; Translations: [Diarrhea, unspecified] 07-25-2023 Episodic Other injuries and conditions due to external causes (14 sources) Fracture of bone; Translations: [Other injury of unspecified body region, initial encounter] 11-06-2017 Episodic Other lower respiratory disease (11 sources) Nodule of lung; Translations: [Solitary pulmonary nodule] 12-05-2022 Episodic Other lower respiratory disease (3 sources) Solitary pulmonary nodule; Translations: [Solitary pulmonary nodule] Onset: 11-24-2024 12-05-2022 Episodic Other lower respiratory disease (11 sources) Asthma; 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] 10-15-2024 Episodic Comment on above: Total eosinophil cou nt 391 Other nervous system disorders (14 sources) Chronic pain; Translations: [Other chronic pain] 05-13-2018 Chronic Other nervous system disorders (3 sources) Other chronic pain; Translations: [Other chronic pain] 03-01-2022 Chronic Other non-traumatic joint disorders (14 sources) Hip pain; Translations: [Pain in left hip] 06-07-2021 Episodic Other upper respiratory disease (20 sources) Seasonal allergy; Translations: [Other seasonal allergic rhinitis] 11-06-2017 Chronic Other upper respiratory disease (9 sources) Allergic rhinitis; Translations: [Allergic rhinitis, unspecified] 07-25-2023 Chronic Other upper respiratory disease (1 source) Allergic rhinitis, unspecified; Translations: [Allergic rhinitis, unspecified] Onset: 10-01-2024 Chronic Other upper respiratory infections (14 sources) Chronic sinusitis; Translations: [Chronic sinusitis, unspecified] 08-27-2018 Chronic Other upper respiratory infections (20 sources) Acute sinusitis; Translations: [Acute sinusitis, unspecified] 02-14-2018 Episodic Otitis media and related conditions (14 sources) Otitis media; Translations: [Otitis media, unspecified, unspecified ear] 02-14-2018 Episodic Residual codes; unclassified (9 sources) Daytime hypersomnia; Translations: [Hypersomnia, unspecified] 08-20-2023 Chronic Residual codes; unclassified (15 sources) Tobacco user; Translations: [Tobacco use] 05-29-2018 Episodic Residual codes; unclassified (3 sources) Tobacco use; Translations: [Tobacco use disorder] 05-17-2022 Episodic Residual codes; unclassified (10 sources) Insomnia; Translations: [Insomnia, unspecified] 03-13-2023 Episodic [...] lower back, initial encounter] Episodic Substance-related disorders (14 sources) Drug abuse; Translations: [Other psychoactive substance [...] Test Name Value Interpretation Reference Range Facility Absolute lymphocyte countOrd ered By: Shane Das on 10-27-2024 Lymphocytes Auto (Unsp spec) [#/Vol] 2.04 10*3/uL 0.83-4.51 [facility] Absolute neutrophil countOrd ered By: Shane Das on 10-27-2024 Neutrophils (Bld) [#/Vol] 11.4 10*3/uL High 2.0-7.7 [facility] Anion gap in Serum or Plasma Ordered By: Shane Das on 10-27-2024 Anion gap [Moles/Vol] 12 mmol/L 5-15 [facility] Automated lymphocyte count a s percentage of total leukocytesOrdered By: Shane Das on 10-27-2024 Lymphocytes/100 WBC Auto (Unsp spec) 14.4 % Low 19-41 [facility] BUN/creatinine ratioOrdered By: Shane Das on 10-27-2024 Urea nitrogen/Creatinine [Mass ratio] 16.2 mg/mg 10-20 [facility] Basophil percentageOrdered B y: Shane Das on 10-27-2024 Basophils/100 WBC (Bld) 0.2 % 0-1 [facility] Bilirubin, totalOrdered By: Shane Das on 10-27-2024 Bilirubin [Mass/Vol] 1.09 mg/dL 0.00-1.30 [facility] CBC W/Diff, Automatedon Absolute Lymph 2.04 X10 3/uL Normal 0.83-4.51 [facility] Comment on above: Performed By: #### L 100.0100, L500.4050 ####[facility] [id number] [place], [address] Absolute Neut 11.4 X10 3/uL High 2.0-7.7 [facility] Comment on above: Performed By: #### L 100.0100, L500.4050 ####[facility] [id number] [place], [address] Basophils/100 WBC (Bld) 0.2 % Normal 0-1 [facility] Comment on above: Performed By: #### L 100.0100, [id number] ####[facility] [id number] [place], [address] Eosinophils/100 WBC (Bld) 0.7 % Normal 0-5 [facility] Comment on above: Performed By: #### L 100.0100, [id number] ####[facility] [address] [place], [address] Erythrocyte distribution width (RBC) [Ratio] 15.9 % High 11.6-14.6 [facility] Comment on above: Performed By: #### L 100.0100, [id number] ####[facility] [address] [place], [address] Hematocrit (Bld) [Volume fraction] 46.3 % Normal 40-54 [facility] Comment on above: Performed By: #### L 100.0100, [id number] ####[facility] [address] [place], [address] Hemoglobin (Bld) [Mass/Vol] 15.2 g/dL Normal 13.0-16.5 [facility] Comment on above: Performed By: #### L 100.0100, [id number] ####[facility] [address] [place], [address] IG% 0.600 Normal 0.0-0.9 [facility] Comment on above: Result Comment: IG% - Immature Granulocytes (promyelocytes, myelocytes and metamyelocytes) > 1% indicates that a LEFT SHIFT is Present. Performed By: #### L 100.0100, [id number] ####[facility] [id number] [place], [address] Lymphocytes/100 WBC (Bld) 14.4 % Low 19-41 [facility] Comment on above: Performed By: #### L 100.0100, [id number] ####[facility] [address] [place], [address] MCH (RBC) [Entitic mass] 28.6 pg Normal 27.0-32.0 [facility] Comment on above: Performed By: #### L 100.0100, L500.4050 ####[facility] [address] [place], [address] MCHC (RBC) [Mass/Vol] 32.8 g/dL Normal 32-36 [facility] Comment on above: Performed By: #### L 100.0100, L500.4050 ####[facility] [address] [place], [address] MCV (RBC) [Entitic vol] 87.0 fL Normal 80-94 [facility] Comment on above: Performed By: #### L 100.0100, L500.4050 ####[facility] [address] [place], [address] Monocytes/100 WBC (Bld) 3.8 % Normal 0-10 [facility] Comment on above: Performed By: #### L 100.0100, L500.4050 ####[facility] [address] [place], [address] Neutrophils/100 WBC (Bld) 80.3 % High 47-70 [facility] Comment on above: Performed By: #### L 100.0100, L500.4050 ####[facility] [address] [place], [address] Nucleated RBC (Bld) [#/Vol] 0 10*3/uL Normal 0-5 [facility] Comment on above: Performed By: #### L 100.0100, L500.4050 ####[facility] [address] [place], [address] Platelet mean volume (Bld) [Entitic vol] 9.9 fL Normal 6.2-12.0 [facility] Comment on above: Performed By: #### L 100.0100, L500.4050 ####[facility] [address] [place], [address] Platelets (Bld) [#/Vol] 292 10*3/uL Normal 150-450 [facility] Comment on above: Performed By: #### L 100.0100, L500.4050 ####[facility] [address] [place], [address] RBC (Bld) [#/Vol] 5.32 10*6/uL Normal 4.6-6.2 [facility] Comment on above: Performed By: #### L 100.0100, L500.4050 ####[facility] [address] [place], [address] RDW SD 50.1 fl High 35.1-43.9 [facility] Comment on above: Performed By: #### L 100.0100, L500.4050 ####[facility] [address] [place], [address] WBC (Bld) [#/Vol] 14.2 10*3/uL High 4.4-11.0 [facility] Comment on above: Performed By: #### L 100.0100, L500.4050 ####[facility] [address] [place], [address] Carbon dioxide, total [Moles /volume] in Central venous bloodOrdered By: Shane Das on 10-27-2024 CO2 [Moles/Vol] 26.2 mmol/L 21.0-32.0 [facility] Chloride assayOrdered By: Do bonnie Das on 10-27-2024 Chloride [Moles/Vol] 103 mmol/L 98-108 [facility] Comprehensive Metabolic Prof ilon 10-27-2024 Albumin [Mass/Vol] 4.5 g/dL Normal 3.4-4.8 [facility] Comment on above: Performed By: #### L 100.0100, L500.4050 ####[facility] [address] [place], [address] Albumin/Globulin [Mass ratio] 1.8 {ratio} Normal 0.9-2.4 [facility] Comment on above: Performed By: #### L 100.0100, L500.4050 ####[facility] [address] [place], [address] ALK PHOS 61 U/L Normal 40-129 [facility] Comment on above: Performed By: #### L 100.0100, L500.4050 ####[facility] [address] [place], [address] ALT [Catalytic activity/Vol] 25 U/L Normal <=46 [facility] Comment on above: Performed By: #### L 100.0100, L500.4050 ####[facility] [address] [place], [address] AST [Catalytic activity/Vol] 23 U/L Normal <=37 [facility] Comment on above: Performed By: #### L 100.0100, L500.4050 ####[facility] [address] [place], [address] Bilirubin [Mass/Vol] 1.09 mg/dL Normal 0.00-1.30 [facility] Comment on above: Performed By: #### L 100.0100, L500.4050 ####[facility] [address] [place], [address] BUN/CRE 16.2 RATIO Normal 10-20 [facility] Comment on above: Performed By: #### L 100.0100, L500.4050 ####[facility] [address] [place], [address] Calcium [Mass/Vol] 9.8 mg/dL Normal 7.6-11.0 [facility] Comment on above: Performed By: #### L 100.0100, L500.4050 ####[facility] [address] [place], [address] Chloride [Moles/Vol] 103 mmol/L Normal 98-108 [facility] Comment on above: Performed By: #### L 100.0100, L500.4050 ####[facility] [address] [place], [address] CO2 [Moles/Vol] 26.2 mmol/L Normal 21.0-32.0 [facility] Comment on above: Performed By: #### L 100.0100, L500.4050 ####[facility] [address] [place], [address] Creatinine [Mass/Vol] 1.22 mg/dL High 0.70-1.20 [facility] Comment on above: Performed By: #### L 100.0100, L500.4050 ####[facility] [address] [place], [address] GAP 12 Normal 5-15 [facility] Comment on above: Performed By: #### L 100.0100, L500.4050 ####[facility] [address] [place], [address] GFR/1.73 sq M.predicted among non-blacks MDRD (S/P/Bld) [Vol rate/Area] 63 mL/min/{1.73_m2} Normal >60 [facility] Comment on above: Result Comment: mL/m in/1.73m2 CKD-EPI Creatinine Equation (2020) Performed By: #### L 100.0100, L500.4050 ####[facility] [address] [place], [address] Globulin (S) [Mass/Vol] 2.5 g/dL Normal 2.2-4.2 [facility] Comment on above: Performed By: #### L 100.0100, L500.4050 ####[facility] [address] [place], [address] Glucose [Mass/Vol] 126 mg/dL High 70-99 [facility] Comment on above: Performed By: #### L 100.0100, L500.4050 ####[facility] [address] [place], [address] Potassium [Moles/Vol] 4.6 mmol/L Normal 3.3-5.1 [facility] Comment on above: Performed By: #### L 100.0100, L500.4050 ####[facility] [address] [place], [address] Sodium [Moles/Vol] 140 mmol/L Normal 133-145 [facility] Comment on above: Performed By: #### L 100.0100, L500.4050 ####[facility] [address] [place], [address] T PROT 7.0 g/dL Normal 5.9-8.4 [facility] Comment on above: Performed By: #### L 100.0100, L500.4050 ####[facility] [address] [place], [place], [address] Urea nitrogen [Mass/Vol] 20 mg/dL High 4-19 [facility] Comment on above: Performed By: #### L 100.0100, L500.4050 ####[facility] [address] [place], [place], [address] Eosinophil percentageOrdered By: Shane Das on 10-27-2024 Eosinophils/100 WBC (Bld) 0.7 % 0-5 [facility] Erythrocyte distribution wid th ratioOrdered By: Shaneclara Das on 10-27-2024 Erythrocyte distribution width (RBC) [Ratio] 15.9 % High 11.6-14.6 [facility] Erythrocyte distribution wid th standard deviationOrdered By: Shaneclara Das on 10-27-2024 Erythrocyte distribution width (RBC) [Ratio] 50.1 fl High 35.1-43.9 [facility] Glomerular filtration rate ( GFR) estimation/1.73 sq m using serum, plasma, or whole bOrdered By: Shane Das on 10-27-2024 GFR/1.73 sq M.predicted among non-blacks MDRD (S/P/Bld) [Vol rate/Area] 63 mL/min/{1.73_m2} >60 [facility] Comment on above: mL/min/1.73m2 CKD-EP I Creatinine Equation (2020) Hematocrit Auto (Bld) [Volum e fraction]Ordered By: Shane Das on 10-27-2024 Hematocrit (Bld) [Volume fraction] 46.3 % 40-54 [facility] Hemoglobin measurementOrdere d By: Shane Das on 10-27-2024 Hemoglobin (Bld) [Mass/Vol] 15.2 g/dL 13.0-16.5 [facility] Immature granulocytes/100 WB C Auto (Bld)Ordered By: Shane Das on 10-27-2024 Immature granulocytes/100 WBC (Bld) 0.600 % 0.0-0.9 [facility] Comment on above: IG% - Immature Granu locytes (promyelocytes, myelocytes and metamyelocytes) > 1% indicates that a LEFT SHIFT is Present. Internal Medicine Office Vis estela 10-27-2024 Internal Medicine Office Visit [facility] [address] [place] [address] [place] [address] OFFICE VISIT Date of Service: 10/27/24 MR#: [id number] Acct: [id number] Name: MAGED SÁNCHEZ Rep #: [id number] : 1950 Provider: Dr. 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 Is patient in pain?: No Allergies grass pollen Allergy (Intermediate, Verified 10/27/24 10:53) Watery eyes,Sneezing, Runny nose, fexofenadine (From Yelena) Allergy (Verified 10/27/24 10:53) Hives pollen extracts Allergy (Verified 10/27/24 10:53) Congestion sertraline Adverse Reaction (Severe, Verified 10/27/24 10:53) suicidal thoughts Medications ???Medication ???Instructions ???Recorded ???Confirmed ???Type vitamin C 45 mg-zinc citrate 3.75 tab PO 05/17/22 10/27/24 History mg-elderberry 50 mg chewable tablet (iMapData) diphenhydramine 25 1 tab PO QHS PRN 05/07/23 10/27/24 History mg-acetaminophen 500 mg tablet (Tylenol PM Extra Strength) fluticasone propionate 50 1 spray intranasal QDAY 01/28/24 0 10/27/24 History mcg/actuation nasal spray,suspension (24 Hour Allergy Relief) tamsulosin 0.4 mg capsule See Rx Instructions .Route 5 10/27/24 Rx .COMPLEX #90 caps benazepril 20 mg tablet 10 mg (1/2 x 20 mg) PO DAILY #45 0 08/10/24 10/27/24 Rx TABLETS acetaminophen 325 mg capsule 325 mg PO ONCE PRN 09/25/24 History cetirizine 10 mg tablet 10 mg PO DAILY PRN allergy 5 10/27/24 Rx symptoms #90 tabs meloxicam 15 mg tablet 15 mg PO DAILY #30 tabs 09/29/24 0 10/27/24 Rx budesonide-formoterol HFA 160 2 puff inhalation BID #10.2 grams 10/07/24 10/27/24 Rx mcg-4.5 mcg/actuation aerosol inhaler (Symbicort) dupilumab 300 mg/2 mL subcutaneous 300 mg (2 mL) subcut Q2W #2 mL 0 10/15/24 10/27/24 Rx pen injector (Dupixent) dupilumab 300 mg/2 mL subcutaneous 600 mg (4 mL) subcut ONCE #4 mL 10/15/24 10/27/24 Rx pen injector (Dupixent) hydrochlorothiazide 25 mg tablet 25 mg .Route QDAY #90 tabs 5 10/27/24 Rx Have you fallen in the past year?: Yes (uncertain timing-) Nurse's Note: Pt states that last few times he's taken bp it has been 190/90's. Pt just finished a prednisone taper, and has had stress w/ sister being sick w/ cancer. Pt was on chantix but having bizzare dreams so he quit taking it. Pt has been smoking about 6 weeks now. pt smokes 1/2ppd. Pt states he was a ppd smoker prior to the chantix. [facility] Medical History Sprain of left foot Strain [...] cancer Sister Cancer Social History Smoking Status: Current some day smoker Tobacco: How many years used: 50 second hand exposure: No alcohol intake: never substance use type: does not use what type of physical activity do you participate in: walking, running and weight training frequency: 1-2 times per week HPI HPI Details: MAGED SÁNCHEZ, is a 73 M who presents to the office today for concerns about elevated blood pressure and and uncertainty whethe (more content not included)... Normal [facility] Laboratory - Chemistry and C hemistry - challengeOrdered By: Shane Das on 10-27-2024 AST [Catalytic activity/Vol] 23 U/L <38 [facility] MCV (mean corpuscular volume ) determinationOrdered By: Shane Das on 10-27-2024 MCV (RBC) [Entitic vol] 87.0 fL 80-94 [facility] Mean corpuscular hemoglobin (MCH) determinationOrdered By: Shane Das on 10-27-2024 MCH (RBC) [Entitic mass] 28.6 pg 27.0-32.0 [facility] Mean corpuscular hemoglobin concentration (MCHC) determinationOrdered By: Shane Das on 10-27-2024 MCHC (RBC) [Mass/Vol] 32.8 g/dL 32-36 [facility] Mean platelet volume determi nationOrdered By: Shane Das on 10-27-2024 Platelet mean volume (Bld) [Entitic vol] 9.9 fL 6.2-12.0 [facility] Monocyte percentageOrdered B y: Shane Das on 10-27-2024 Monocytes/100 WBC (Bld) 3.8 % 0-10 [facility] Neutrophil percentageOrdered By: Shane Das on 10-27-2024 Neutrophils/100 WBC (Bld) 80.3 % High 47-70 [facility] Nucleated red blood cell per centageOrdered By: Shane Das on 10-27-2024 Nucleated RBC/100 WBC (Bld) [Ratio] 0 % 0-5 [facility] Platelet countOrdered By: Do bonnie Das on 10-27-2024 Platelets (Bld) [#/Vol] 292 10*3/uL 150-450 [facility] Potassium measurement (mass/ volume)Ordered By: Shane Das on 10-27-2024 Potassium (Unsp spec) [Mass/Vol] 4.6 mmol/L 3.3-5.1 [facility] RBC Auto (Bld) [#/Vol]Ordere d By: Shane Das on 10-27-2024 RBC (Bld) [#/Vol] 5.32 10*6/uL 4.6-6.2 [facility] Serum creatinine measurement (mass/volume)Ordered By: Shane Das on 10-27-2024 Creatinine [Mass/Vol] 1.22 mg/dL High 0.70-1.20 [facility] Serum globulin measurementOr dered By: Shane Das on 10-27-2024 Globulin (S) [Mass/Vol] 2.5 g/dL 2.2-4.2 [facility] Serum glucose measurement (m ass/volume)Ordered By: Shane Dsa on 10-27-2024 Glucose [Mass/Vol] 126 mg/dL High 70-99 [facility] Serum or plasma alanine galdamez otransferase (ALT) measurementOrdered By: Shane Das on 10-27-2024 ALT [Catalytic activity/Vol] 25 U/L <47 [facility] Serum or plasma albumin josue urement (mass/volume)Ordered By: Shane Das on 10-27-2024 Albumin [Mass/Vol] 4.5 g/dL 3.4-4.8 [facility] Serum or plasma albumin/glob ulin mass ratioOrdered By: Shane Das on 10-27-2024 Albumin/Globulin [Mass ratio] 1.8 {ratio} 0.9-2.4 [facility] Serum or plasma alkaline felicia sphatase measurementOrdered By: Shane Das on 10-27-2024 ALP [Catalytic activity/Vol] 61 U/L 40-129 [facility] Serum or plasma calcium josue urement (mass/volume)Ordered By: Shaneclara Das on 10-27-2024 Calcium [Mass/Vol] 9.8 mg/dL 7.6-11.0 [facility] Serum or plasma urea nitroge n measurement (mass/volume)Ordered By: Shaneclara Das on 10-27-2024 Urea nitrogen [Mass/Vol] 20 mg/dL High 4-19 [facility] Sodium levelOrdered By: Tarun aDs on 10-27-2024 Sodium [Moles/Vol] 140 mmol/L 133-145 [facility] Total proteinOrdered By: Anum Das on 10-27-2024 Protein [Mass/Vol] 7.0 g/dL 5.9-8.4 [facility] White blood cell (WBC) count Ordered By: Shane Thiago on 10-27-2024 WBC (Bld) [#/Vol] 14.2 10*3/uL High 4.4-11.0 [facility] Respiratory Cultureon 2024 RESPC Mixed normal respira tory shaheen. No Haemophilus, Streptococcus pneumoniae, beta-hemolytic Streptococcus or Staphylococcus aureus isolated. Normal [facility] Comment on above: Performed By: #### M 100.1999, M100.2400 #### [facility] [address] [place], [address] Gram Stainon 10-22-2024 GS Acceptable Specimen? Yes (<25 Epithelial cells per/lpf) Gram Stain 1+ White Blood Cells 3+ Gram variable dawood 3+ Gram positive cocci Normal [facility] Comment on above: Performed By: #### M 100.1999, M100.2400 #### [facility] [address] [place], [address] Gram stainOrdered By: Chase Patterson on 10-22-2024 Microscopic observation Gram stain Nom (Unsp spec) [facility] Microbial respiratory cultur eOrdered By: Antonette Patterson on 10-22-2024 Microorganism identified Cx Nom (Unsp spec) [facility] Pulmonary Visit Reporton Pulmonary Visit Report [facility] [place] [address] [place] [address] OFFICE VISIT Date of Service: 10/15/24 MR#: [id number] Acct: [id number] Name: MAGED SÁNCHEZ Rep #: [id number] : 1950 Provider: LAM Patterson Age/Sex: 73/M Location: [facility] Status: Signed Assessment and Plan Assessment and [...] discussed the possibility of referral to an certified endoscopy technician for skin testing. At this time we [...] Additional Comments: This note was generated with [employer] software. It may contain incorrect words, spelling, [...] and makes him feel like he is "18 years old again". He is compliant with use of Symbicort 2 puffs twice daily. He does report rinsing his mouth out after each use. He denies any medication side effect such as sore throat or thrush. He has not recently been utilizing albuterol. If you recall, he has a greater than [id number]-[id number] smoking history. He was a 1 pack/day [...] Intake V (more content not included)... Normal [facility] Allergen, Mini-Raston 2024 A. ALTERNATA <0.10 Normal Class 0 [facility] Comment on above: Performed By: #### L 5500.0300, L3500.3600, L3300.1200, L100.0100, L3200.1600 ####[facility] [address] [place], [address] BERMUDA GRASS <0.10 Normal Class 0 [facility] Comment on above: Performed By: #### L 5500.0300, L3500.3600, L3300.1200, L100.0100, L3200.1600 ####[facility] [address] [place], [address] [place], [place] <0.10 Normal Class 0 [facility] Comment on above: Performed By: #### L 5500.0300, L3500.3600, L3300.1200, L100.0100, L3200.1600 ####[facility] [address] [place], [address] CAT HAIR/DANDER <0.10 Normal Class 0 [facility] Comment on above: Performed By: #### L 5500.0300, L3500.3600, L3300.1200, L100.0100, L3200.1600 ####[facility] [address] [place], [address] COMMENT Comment Normal . [facility] Comment on above: Result Comment: Tyrell cheek of Specific IgE Class Description of Class ----- < 0.10 0 Negative 0.10 - 0.31 0/I Equivocal/Low 0.32 - 0.55 I Low 0.56 - 1.40 II Moderate 1.41 - 3.90 III High 3.91 - 19.00 IV Very High 19.01 - 100.00 V Very High >100.00 Very High Performed By: #### L 5500.0300, L3500.3600, L3300.1200, L100.0100, L3200.1600 ####[facility] [address] [place], [place], [phone] D FARINAE MITE <0.10 Normal Class 0 [facility] Comment on above: Performed By: #### L 5500.0300, L3500.3600, L3300.1200, L100.0100, L3200.1600 ####[facility] [address] [place], [place], [phone] D PTERONYSSINUS <0.10 Normal Class 0 [facility] Comment on above: Performed By: #### L 5500.0300, L3500.3600, L3300.1200, L100.0100, L3200.1600 ####[facility] [address] [place], [address] DOG EPITHELIA <0.10 Normal Class 0 [facility] Comment on above: Performed By: #### L 5500.0300, L3500.3600, L3300.1200, L100.0100, L3200.1600 ####[facility] [address] [place], [address] ELM,AMER WHITE <0.10 Normal Class 0 [facility] Comment on above: Performed By: #### L 5500.0300, L3500.3600, L3300.1200, L100.0100, L3200.1600 ####[facility] [address] [place], [address] Mouse Urine <0.10 Normal Class 0 [facility] Comment on above: Result Comment: Perf ormed at: [address] [id number] Web Manager: Lokesh Stevenson MD, Phone: [phone] Performed By: #### L 5500.0300, L3500.3600, L3300.1200, L100.0100, L3200.1600 ####[facility] [address] [place], [address] OAK, WHITE <0.10 Normal Class 0 [facility] Comment on above: Performed By: #### L 5500.0300, L3500.3600, L3300.1200, L100.0100, L3200.1600 ####[facility] [address] [place], [address] PLANTAIN,ENGLSH <0.10 Normal Class 0 [facility] Comment on above: Performed By: #### L 5500.0300, L3500.3600, L3300.1200, L100.0100, L3200.1600 ####[facility] [address] [place], [address] RAGWEED SH/COM <0.10 Normal Class 0 [facility] Comment on above: Performed By: #### L 5500.0300, L3500.3600, L3300.1200, L100.0100, L3200.1600 ####[facility] [address] [place], [address] ANCAon 10-02-2024 Atypical pANCA <1:20 Normal Neg:<1:20 [facility] Comment on above: Result Comment: The atypical pANCA pattern has been observed in a significant percentage of patients with ulcerative colitis, primary sclerosing cholangitis and autoimmune hepatitis. Performed By: #### L 5500.0300, L3500.3600, L3300.1200, L100.0100, L3200.1600 ####[facility] [address] [place], [address] Cytoplasmic Ab <1:20 Normal Neg:<1:20 [facility] Comment on above: Performed By: #### L 5500.0300, L3500.3600, L3300.1200, L100.0100, L3200.1600 ####[facility] [address] [place], [address] Perinuclear Ab. <1:20 Normal Neg:<1:20 [facility] Comment on above: Result Comment: The presence of positive fluorescence exhibiting P-ANCA or C-ANCA patterns alone is not specific for the diagnosis of Renu's Granulomatosis (WG) or microscopic polyangiitis. Decisions about treatment should not be based solely on ANCA IFA results. The [employer] ANCA [employer] Consensus recommends follow up testing of positive sera with both MI- 3 and MPO-ANCA enzyme immunoassays. As many as 5% serum samples are positive only by EIA. Ref. AM J Clin Pathol 1999;111:507-513. Performed By: #### L 5500.0300, L3500.3600, L3300.1200, L100.0100, L3200.1600 ####[facility] [address] [place], [address] Aspergillus Antibodieson Asp. flavus Negative Normal Neg:<1:1 [facility] Comment on above: Performed By: #### L 5500.0300, L3500.3600, L3300.1200, L100.0100, L3200.1600 ####[facility] [address] [place], [address] Asp. fumigatus Negative Normal Neg:<1:1 [facility] Comment on above: Performed By: #### L 5500.0300, L3500.3600, L3300.1200, L100.0100, L3200.1600 ####[facility] [address] [place], [address] Asp. niger Negative Normal Neg:<1:1 [facility] Comment on above: Performed By: #### L 5500.0300, L3500.3600, L3300.1200, L100.0100, L3200.1600 ####[facility] [address] [place], [place], [address] Immunoglobulin Alex 5 IMMUNOGLOB E QN 28 IU/mL Normal 6-495 [facility] Comment on above: Result Comment: Perf ormed at: - [facility] [address] [id number] Web Manager: Gilmer Otto PhD, Phone: [phone] Performed at: - [facility] [address] [id number] Web Manager: Lokesh Stevenson MD, Phone: [phone] Performed By: #### L 5500.0300, L3500.3600, L3300.1200, L100.0100, L3200.1600 #### [facility] [address] [place], [place], [address] Absolute lymphocyte countOrd ered By: Antonette Patterson on 09-28-2024 Lymphocytes Auto (Unsp spec) [#/Vol] 3.08 10*3/uL 0.83-4.51 [facility] Absolute neutrophil countOrd ered By: Antonette Patterson on 09-28-2024 Neutrophils (Bld) [#/Vol] 4.6 10*3/uL 2.0-7.7 [facility] [place] Automated lymphocyte count a s percentage of total leukocytesOrdered By: Antonette Patterson on 09-28-2024 Lymphocytes/100 WBC Auto (Unsp spec) 36.3 % 19-41 [facility] Basophil percentageOrdered B y: Antonette Patterson on 09-28-2024 Basophils/100 WBC (Bld) 0.2 % 0-1 [facility] CBC W/Diff, Automatedon 09-18 Absolute Lymph 3.08 X10 3/uL Normal 0.83-4.51 [facility] Comment on above: Performed By: #### L 5500.0300, L3500.3600, L3300.1200, L100.0100, L3200.1600 #### [facility] [address] [place], [address] Absolute Neut 4.6 X10 3/uL Normal 2.0-7.7 [facility] Comment on above: Performed By: #### L 5500.0300, L3500.3600, L3300.1200, L100.0100, L3200.1600 #### [facility] [address] [place], [address] Basophils/100 WBC (Bld) 0.2 % Normal 0-1 [facility] Comment on above: Performed By: #### L 5500.0300, L3500.3600, L3300.1200, L100.0100, L3200.1600 #### [facility] [address] [place], [address] Eosinophils/100 WBC (Bld) 4.6 % Normal 0-5 [facility] Comment on above: Performed By: #### L 5500.0300, L3500.3600, L3300.1200, L100.0100, L3200.1600 #### [facility] [address] [place], [address] Erythrocyte distribution width (RBC) [Ratio] 14.6 % Normal 11.6-14.6 [facility] Comment on above: Performed By: #### L 5500.0300, L3500.3600, L3300.1200, L100.0100, L3200.1600 #### [facility] [address] [place], [address] Hematocrit (Bld) [Volume fraction] 48.2 % Normal 40-54 [facility] Comment on above: Performed By: #### L 5500.0300, L3500.3600, L3300.1200, L100.0100, L3200.1600 #### [facility] [address] [place], [address] Hemoglobin (Bld) [Mass/Vol] 15.5 g/dL Normal 13.0-16.5 [facility] Comment on above: Performed By: #### L 5500.0300, L3500.3600, L3300.1200, L100.0100, L3200.1600 #### [facility] [address] [place], [address] IG% 0.100 Normal 0.0-0.9 [facility] Comment on above: Result Comment: IG% - Immature Granulocytes (promyelocytes, myelocytes and metamyelocytes) > 1% indicates that a LEFT SHIFT is Present. Performed By: #### L 5500.0300, L3500.3600, L3300.1200, L100.0100, L3200.1600 #### [facility] [address] [place], [address] Lymphocytes/100 WBC (Bld) 36.3 % Normal 19-41 [facility] Comment on above: Performed By: #### L 5500.0300, L3500.3600, L3300.1200, L100.0100, L3200.1600 #### [facility] [address] [place], [address] MCH (RBC) [Entitic mass] 28.1 pg Normal 27.0-32.0 [facility] Comment on above: Performed By: #### L 5500.0300, L3500.3600, L3300.1200, L100.0100, L3200.1600 #### [facility] [address] [place], [address] MCHC (RBC) [Mass/Vol] 32.2 g/dL Normal 32-36 [facility] Comment on above: Performed By: #### L 5500.0300, L3500.3600, L3300.1200, L100.0100, L3200.1600 #### [facility] [address] [place], [address] MCV (RBC) [Entitic vol] 87.3 fL Normal 80-94 [facility] Comment on above: Performed By: #### L 5500.0300, L3500.3600, L3300.1200, L100.0100, L3200.1600 #### [facility] [address] [place], [address] Monocytes/100 WBC (Bld) 4.8 % Normal 0-10 [facility] Comment on above: Performed By: #### L 5500.0300, L3500.3600, L3300.1200, L100.0100, L3200.1600 #### [facility] [address] [place], [address] Neutrophils/100 WBC (Bld) 54.0 % Normal 47-70 [facility] Comment on above: Performed By: #### L 5500.0300, L3500.3600, L3300.1200, L100.0100, L3200.1600 #### [facility] [address] [place], [address] Nucleated RBC (Bld) [#/Vol] 0 10*3/uL Normal 0-5 [facility] Comment on above: Performed By: #### L 5500.0300, L3500.3600, L3300.1200, L100.0100, L3200.1600 #### [facility] [address] [place], [address] Platelet mean volume (Bld) [Entitic vol] 10.5 fL Normal 6.2-12.0 [facility] Comment on above: Performed By: #### L 5500.0300, L3500.3600, L3300.1200, L100.0100, L3200.1600 #### [facility] [address] [place], [address] Platelets (Bld) [#/Vol] 231 10*3/uL Normal 150-450 [facility] Comment on above: Performed By: #### L 5500.0300, L3500.3600, L3300.1200, L100.0100, L3200.1600 #### [facility] [address] [place], [address] RBC (Bld) [#/Vol] 5.52 10*6/uL Normal 4.6-6.2 [facility] Comment on above: Performed By: #### L 5500.0300, L3500.3600, L3300.1200, L100.0100, L3200.1600 #### [facility] [address] [place], [address] RDW SD 46.8 fl High 35.1-43.9 [facility] Comment on above: Performed By: #### L 5500.0300, L3500.3600, L3300.1200, L100.0100, L3200.1600 #### [facility] [address] [place], [address] WBC (Bld) [#/Vol] 8.5 10*3/uL Normal 4.4-11.0 [facility] Comment on above: Performed By: #### L 5500.0300, L3500.3600, L3300.1200, L100.0100, L3200.1600 #### [facility] [address] [place], [address] Eosinophil percentageOrdered By: Antonette Patterson on 09-28-2024 Eosinophils/100 WBC (Bld) 4.6 % 0-5 [facility] Erythrocyte distribution wid th ratioOrdered By: Antonette Patterson on 09-28-2024 Erythrocyte distribution width (RBC) [Ratio] 14.6 % 11.6-14.6 [facility] Erythrocyte distribution wid th standard deviationOrdered By: Antonette Patterson on 09-28-2024 Erythrocyte distribution width (RBC) [Ratio] 46.8 fl High 35.1-43.9 [facility] Hematocrit Auto (Bld) [Volum e fraction]Ordered By: Antonette Patterson on 09-28-2024 Hematocrit (Bld) [Volume fraction] 48.2 % 40-54 [facility] Hemoglobin measurementOrdere d By: Antonette Patterson on 09-28-2024 Hemoglobin (Bld) [Mass/Vol] 15.5 g/dL 13.0-16.5 [facility] IgEOrdered By: Antonette mina on 09-28-2024 IgE 28 IU/mL 6-495 [facility] Comment on above: Performed at: - [employer] [id number] Director: Gilmer Otto PhD, Phone: [phone] at: [facility] [employer] [id number] Director: Lokesh Stevenson MD, Phone: [phone] Immature granulocytes/100 WB C Auto (Bld)Ordered By: Antonette Patterson on 09-28-2024 Immature granulocytes/100 WBC (Bld) 0.100 % 0.0-0.9 [facility] Comment on above: IG% - Immature Granu locytes (promyelocytes, myelocytes and metamyelocytes) > 1% indicates that a LEFT SHIFT is Present. Laboratory - Miscellaneous t estsOrdered By: Antonette Patterson on 09-28-2024 Service comment (Unsp spec) [Interp] Comment . [facility] Comment on above: Levels of Specific I [...] (RBC) [Entitic vol] 87.3 fL 80-94 [facility] Mean corpuscular hemoglobin (MCH) determinationOrdered By: Antonette Patterson on 09-28-2024 MCH (RBC) [Entitic mass] 28.1 pg 27.0-32.0 [facility] Mean corpuscular hemoglobin concentration (MCHC) determinationOrdered By: Antonette Patterson on 09-28-2024 MCHC (RBC) [Mass/Vol] 32.2 g/dL 32-36 [facility] Mean platelet volume determi nationOrdered By: Antonette Patterson on 09-28-2024 Platelet mean volume (Bld) [Entitic vol] 10.5 fL 6.2-12.0 [facility] Monocyte percentageOrdered B y: Antonette Patterson on 09-28-2024 Monocytes/100 WBC (Bld) 4.8 % 0-10 [facility] Neutrophil percentageOrdered By: Antonette Patterson on 09-28-2024 Neutrophils/100 WBC (Bld) 54.0 % 47-70 [facility] Nucleated red blood cell per centageOrdered By: Antonette Patterson on 09-28-2024 Nucleated RBC/100 WBC (Bld) [Ratio] 0 % 0-5 [facility] Platelet countOrdered By: Karla Patterson on 09-28-2024 Platelets (Bld) [#/Vol] 231 10*3/uL 150-450 [facility] RBC Auto (Bld) [#/Vol]Ordere d By: Antonette Patterson on 09-28-2024 RBC (Bld) [#/Vol] 5.52 10*6/uL 4.6-6.2 [facility] Serum Aspergillus flavus ant ibody detection by immunodiffusionOrdered By: Antonette Patterson on 09-28-2024 A. flavus Ab Immune diff Ql (S) Negative Neg:<1:1 [facility] Serum Aspergillus fumigatus antibody detection by immunodiffusionOrdered By: Antonette Patterson on 09-28-2024 A. fumigatus Ab Immune diff Ql (S) Negative Neg:<1:1 [facility] Serum Aspergillus niger anti body detection by immunodiffusionOrdered By: Antonette Patterson on 09-28-2024 A. niger Ab Immune diff Ql (S) Negative Neg:<1:1 [facility] Serum Bermuda grass IgE anti body assay (units/volume)Ordered By: Antonette Patterson on 09-28-2024 Bermuda grass IgE Qn (S) <0.10 kU/L Class 0 [facility] Serum house dust mi te IgE antibody assay (units/volume)Ordered By: Antonette Patterson on 09-28-2024 house dust mite IgE Qn (S) <0.10 kU/L Class 0 [facility] Serum [place] blue grass Ig E antibody assay (units/volume)Ordered By: Antonette Patterson on 09-28-2024 [place] blue grass IgE Qn (S) <0.10 kU/L Class 0 [facility] Serum cat dander IgE antibod y assay (units/volume)Ordered By: Antonette Patterson on 09-28-2024 Cat dander IgE Qn (S) <0.10 kU/L Class 0 [facility] Serum classic neutrophil cyt oplasmic antibody assay (units/volume)Ordered By: Antonette Patterson on 09-28-2024 Neutrophil cytoplasmic Ab.classic Qn (S) <1:20 titer Neg:<1:20 [facility] Serum dog epithelium IgE ant ibody assay (units/volume)Ordered By: Antonette Patterson on 09-28-2024 Dog epithelium IgE Qn (S) <0.10 kU/L Class 0 [facility] Serum perinuclear neutrophil cytoplasmic antibody titer by immunofluorescenceOrdered By: Antonette Patterson on 09-28-2024 Neutrophil cytoplasmic Ab.perinuclear IF (S) [Titer] <1:20 titer Neg:<1:20 [facility] Comment on above: The presence of posi tive fluorescence exhibiting P-ANCA orC-ANCA patterns alone is not specific for the diagnosis ofWegener's Granulomatosis (WG) or microscopic polyangiitis.Decisions about treatment should not be based solely onANCA IFA results. The International ANCA Group Consensusrecommends follow up testing of positive sera with both MI-3 and MPO-ANCA enzyme immunoassays. As many as 5% serumsamples are positive only by EIA. Ref. AM J Clin Zfvhto1048;111:507-513. Serum white elm IgE antibody assay (units/volume)Ordered By: Antonette Patterson on 09-28-2024 White Elm IgE Qn (S) <0.10 kU/L Class 0 [facility] Serum white oak IgE antibody assay (units/volume)Ordered By: Antonette Patterson on 09-28-2024 Oden IgE Qn (S) <0.10 kU/L Class 0 [facility] White blood cell (WBC) count Ordered By: Antonette Patterson on 09-28-2024 WBC (Bld) [#/Vol] 8.5 10*3/uL 4.4-11.0 [facility] Respiratory Cultureon 2024 RESPC Mixed normal respira tory shaheen. No Streptococcus pneumoniae, beta-hemolytic Streptococcus or Staphylococcus aureus isolated. Normal [facility] Comment on above: Performed By: #### M 100.2400, M100.1999 ####[facility] [address] [place], [place], [address] Gram Stainon 09-25-2024 GS Acceptable Specimen? Yes (<25 Epithelial cells per/lpf) Gram Stain 1+ Epithelial cells 4+ Gram positive cocci 2+ Gram negative rods 2+ Gram positive rods Rare White Blood Cells Normal [facility] Comment on above: Performed By: #### M 100.2400, M100.1999 ####[facility] [address] [place], [place], [address] Gram stainOrdered By: Chase Patterson on 09-25-2024 Microscopic observation Gram stain Nom (Unsp spec) [facility] Microbial respiratory cultur eOrdered By: Antonette Patterson on 09-25-2024 Microorganism identified Cx Nom (Unsp spec) or Staphylococcus aureus isolated. [facility] Pulmonary Visit Reporton Pulmonary Visit Report [facility] [place] [address] [place], [place] [address] OFFICE VISIT Date of Service: 09/25/24 MR#: [id number] Acct: [id number] Name: MAGED SÁNCHEZ Rep #: [id number] : 1950 Provider: LAM Patterson Age/Sex: 73/M [facility] Status: Signed Assessment and Plan Assessment and [...] Additional Comments: This note was generated with [employer] dictation software. It may contain incorrect words, [...] you recall, he has a greater than 77-tyxp-yddi smoking history. 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 Normal [facility] Internal Medicine Office Vis iton 05-19-2024 Internal Medicine Office Visit [facility] [address] [place], [place] [address] OFFICE VISIT Date of Service: 05/19/24 MR#: [id number] Acct: [id number] Name: MAGED SÁNCHEZ Rep #: [id number] : 1950 Provider: Dr. 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 ROS Const Constitutional: No body ache, excessive sweating, fatigue, fever(s), frequent falls, headache(s), snoring, weakness, weight change, sleep problems or change in appetite Eyes Eyes: No blurry vision, change in vision, eye pain or Light sensitivity ENT ENT: No abnormal hearing (more content not included)... Normal [facility] Orthopedic Visit Reporton Orthopedic Visit Report [facility] [address] [place] [address] OFFICE VISIT Date of Service: 04/23/24 MR#: [id number] Acct: [id number] Name: MAGED SÁNCHEZ Rep #: [id number] : 1950 Provider: ALEX High Age/Sex: 73/M Location: [facility] Status: Signed Intake Vital Signs 02/18/24 12:14 [...] 04/23/24 History mg-elderberry 50 mg chewable tablet (iMapData) tamsulosin 0.4 mg capsule See Rx Instructions [...] you fallen in the past year?: Yes [facility] Medical History Sprain of left foot [...] a consistent burning sensation. HPI from 02/18/2024: AMGED SÁNCHEZ is a 73 year old M here today for lumbar spine pain. Pt. advises he has been experiencing low back pain for years. 2017 he had L4/5 fusion by monica Miller at [facility] which was helpful for a few years. He c/o pain from his right low back into his right groin to his lateral and anterior quad down his lateral leg to his right ankle. Says that this pain is similar to the pain that he had prior to his fusion in 2018. He describes it as a constant (more content not included)... Normal [facility] Magnetic resonance imaging r eportOrdered By: Sai Hale on 04-16-2024 Study report [facility] Imaging Services [address] [place] [address] Spine Lumbar (Routine) MR#: [id number] Acct: [id number] Name: MAGED SÁNCHEZ Rep #: [id number] : 1950 M 73 From: Dmitri Hale DO PCP: Dr. Shane Das, DO Status: RE G CLI Study:Spine Lumbar (Routine) Date of Exam: 04/16/24 Exam# [id number] Ordering Dr: Jamari Ferris PROCEDURE: MRI lumbar [...] and L3-4 respectively. 2. Varying degrees of mvdq-vo-wgghgnwa multilevel foraminal narrowing as above. 3. Posterior fusion/decompression at L4-5. 4. Probable left renal cyst. Recommend confirmation with ultrasound. One or more dose reduction techniques were used (e.g., Automated exposure control, adjustment of the mA and/or kV according to patient size, use of iterative reconstruction technique). Reading Location: [facility] CC: ALEX High; Dr. Shane Das, DO ~ Office Assistance: Signed [facility] Spine Lumbar (Routine)on Spine Lumbar (Routine) [facility] Imaging Services [address] [place], [place] [id number] Spine Lumbar (Routine) MR#: [id number] Acct: [id number] Name: MAGED SÁNCHEZ Rep #: [id number] : 1950 M 73 From: Sai Montoya PCP: Dr. Shane Das, Status: REG CLI Study: Spine Lumbar (Routine) Date of Exam: 04/16/24 Exam# [id number] Ordering Dr: Amalia Ferris PROCEDURE: MRI lumbar [...] and L3-4 respectively. 2. Varying degrees of ckws-qp-sgkbwupj multilevel foraminal narrowing as above. 3. Posterior fusion/decompression at L4-5. 4. Probable left renal cyst. Recommend confirmation with ultrasound. One or more dose reduction techniques were used (e.g., Automated exposure control, adjustment of the mA and/or kV according to patient size, use of iterative reconstruction technique). Reading Location: [facility] CC: ALEX High; Dr. Shane Das DO Office Assistance: Signed Normal [facility] L/S Spine Min 4 Viewson 12-3 L/S Spine Min 4 Views [facility] [address] [facility] [place] [address] L/S Spine Min 4 Views MR#: [id number] Acct: [id number] Name: MAGED SÁNCHEZ Rep #: [id number] : 1950 M 73 From: Juan Nguyen MD PCP: Dr. Shane Das, Status: DEP AMB Study: L/S Spine Min 4 Views Date of Exam: 02/18/24 Exam# [id number] Ordering Dr: Amalia Ferris [id number] STUDY: X-RAY - LUMBAR SPINE REASON FOR [...] EST , CC: ALEX High; Dr. Shane Das DO Office Assistance: Signed Normal [facility] Orthopedic Visit Reporton Orthopedic Visit Report [facility] [address] [place] [address] [address] [place] [address] OFFICE VISIT Date of Service: 02/18/24 MR#: [id number] Acct: [id number] Name: MAGED SÁNCHEZ Rep #: [id number] : 1950 Provider: ALEX High Age/Sex: 73/M Location: [facility] Status: Signed Intake Vital Signs 01/28/24 11:18 [...] 01/28/24 History mg-elderberry 50 mg chewable tablet (iMapData) tamsulosin 0.4 mg capsule See Rx Instructions [...] and ice. (more content not included)... Normal [facility] Internal Medicine Office Vis estela 01-28-2024 Internal Medicine Office Visit [facility] [place] [address] [place] [address] OFFICE VISIT Date of Service: 01/28/24 MR#: [id number] Acct: [id number] Name: MAGED SÁNCHEZ Rep #: [id number] : 1950 Provider: Dr. 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 Normal [facility] HLA B27on 12-26-2023 HLA B27 Negative Normal . [facility] Comment on above: Result Comment: HLA- B*27 Negative B27 allele interpretation for all loci based on IMGT/HLA database version 3.51.0 This test was developed and its performance characteristics determined by [facility]. It has not been cleared or approved by the Food and Drug Administration. [facility] CLIA ID Number [id number] This test was performed using Polymerase Chain Reaction (PCR) and Sequence Specific Oligonucleotide Probes (SSOP) technique. Sequence Based Typing (SBT) may be used as a supplemental method when necessary. If you have questions, please call [facility] customer service at or email at [email or web address]. Performed at: [facility] [employer] [id number] Web Manager: Sylvia Winchester PhD, Phone: [phone] Performed By: #### L 3100.7950, L101.9900, L501.6710, L501.1400, L3410.1400, L505.7010 ####[facility] [address] [place], [address] Pulmonary Visit Reporton Pulmonary Visit Report [facility] [place] [id number] [place] [address] OFFICE VISIT Date of Service: 12/24/23 MR#: [id number] Acct: [id number] Name: MAGED SÁNCHEZ Rep #: [id number] : 1950 Provider: LAM Patterson Age/Sex: 73/M [facility] Status: Signed Assessment and Plan Assessment and [...] nodule Plan Details Follow Up: 1 Year ([facility] 4 M FU Chief Complaint: Test results [...] you recall, he has a greater than 33-ofha-gyam smoking history. He was a 1 pack/day [...] Complaint: LT ANKLE SPRAIN X10 days ago Cashier Host/Hostess Required: No Accompanied by: Self Allergies grass pollen Allergy (Intermediate, Verified 12/24/23 14:42) Watery eyes,Sneezing, Runny nose, fexofenadine (From Yelena) Allergy (Verified 12/24/23 14:42) Hives pollen extracts Allergy (Verified 12/24/23 14:42) Congestion sertraline Adverse Reaction (Severe, Verified 12/24/23 14:42) suicidal thoughts Medications ???Medication ???Instructions ???Recorded ???Confirmed ???Type vitamin C 45 mg-zinc citrate 3.75 tab PO 05/17/22 12/24/23 History mg-elderberry 50 mg chewable tablet (iMapData) tamsulosin 0.4 mg capsule See Rx Instructions [...] you fallen in the past year?: Yes [facility] Medical History (Reviewed 12/26/23 @ 10:44 by Antonette Patterson 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 Normal [facility] Antinuclear Antibody, IFAon 12-20-2023 JIGNA, IFA Negative Normal . [facility] Comment on above: Result Comment: Nega tive <1:80 Borderline 1:80 Positive >1:80 ICAP nomenclature: AC-0 For more information about Hep-2 cell patterns use ANApatterns.org, the official website for the International Consensus on Antinuclear Antibody (JIGNA) Patterns (ICAP). Performed at: [facility] [address] [id number] Web Manager: Gilmer Otto PhD, Phone: [phone] Performed By: #### L 3100.7950, L101.9900, L501.6710, L501.1400, L3410.1400, L505.7010 ####[facility] [address] [place], [address] CRPon 12-17-2023 C-REACTIVE PROT 21.30 mg/L High 0.0-3.0 [facility] Comment on above: Result Comment: C-Re active Protein (CRP) provides useful information for the diagnosis, therapy and monitoring of inflammatory processes and associated diseases. For the evaluation of Relative Risk for Cardiovascular Disease, a High Sensitivity CRP (HSCRP) should be ordered. Performed By: #### L 3100.7950, L101.9900, L501.6710, L501.1400, L3410.1400, L505.7010 ####[facility] [address] [place], [address] Erythrocyte Sed Rateon 12-16 SED RATE 17 mm/hr Normal 0-20 [facility] Comment on above: Performed By: #### L 3100.7950, L101.9900, L501.6710, L501.1400, L3410.1400, L505.7010 ####[facility] [address] [place], [address] Foot min 3 Viewson 4 Foot min 3 Views [facility] Imaging Services [address] [place] [address] Foot min 3 Views MR#: [id number] Acct: [id number] Name: MAGED SÁNCHEZ Jane Rep #: [id number] : 1950 M Gabriela From: Kishan Leon PCP: Dr. Shane Das DO Status: REG CLI Study: Foot min 3 Views Date of Exam: 12/17/23 Exam# [id number] Ordering Dr: Fidelia Robles DPM [id number] INDICATION: Metatarsalgia, right foot EXAMINATION/TECHNIQUE: X-RAY - [...] CC: EDUARDO Robles; Dr. Shane Das DO Office Assistance: Signed Normal [facility] Rheumatoid Factoron 12-17-19 24 RHEUMATOID FAC < 10.0 Normal <15 [facility] Comment on above: Performed By: #### L 3100.7950, L101.9900, L501.6710, L501.1400, L3410.1400, L505.7010 ####[facility] [address] [place], [address] Uric Acidon 12-17-2023 URIC 6.8 mg/dL Normal 3.5-7.2 [facility] Comment on above: Result Comment: The drugs N-Acetylcysteine and Metamizole may falsely depress this assay. Performed By: #### L 3100.7950, L101.9900, L501.6710, L501.1400, L3410.1400, L505.7010 ####[facility] [address] [place], [address] CREATININE FINGERSTICKon Creatinine [Mass/Vol] 1.4 mg/dL High 0.70-1.30 [facility] Comment on above: Performed By: #### L 9100.0200 ####[facility] [address] [place], [address] GFR/1.73 sq M.predicted among non-blacks MDRD (S/P/Bld) [Vol rate/Area] 51.0000 mL/min/{1.73_m2} Low >60 [facility] Comment on above: Performed By: #### L 9100.0200 ####[facility] [address] [place], [address] Chest WITH Contraston 2023 Chest WITH Contrast [facility] Imaging Services [address] [place] [address] Chest WITH Contrast MR#: [id number] Acct: [id number] Name: MAGED SÁNCHEZ Rep #: [id number] : 1950 M 73 From: Yamilka kirkland MD PCP: Dr. 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 Yamilka Gill MD on 12/19/23 at 1231 ADDENDUM [id number] Presence of pulmonary emphysema on CT is an independent risk factor for lung cancer. Consider LDCT lung cancer screening in the future. Electronically Signed: Yamilka Gill MD at 12:31 EDT Reading Location ID and State: [facility] / [place] Tel , Service support , 12/19/23 1231 Date cc: LAM Patterson; Dr. Shane Das, DO * Signed ADDENDUM by Dr. Yamilka Gill MD on 12/19/[address]/Chest WITH Contrast IMPRESSION: undefined 12/19/23 1238 Date cc: LAM Patterson; Dr. Shane Das, DO * Signed [id number] HISTORY: nodule. TECHNIQUE: CT of the chest [...] EDT , CC: LAM Patterson; Dr. Shane Das, Office Assistance: Signed Normal [facility] No Panel Informationon 10-23 POC SARS CoV-[address] [facility] No Panel Informationon 04-07 POC SARS CoV-[address] 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 Hip joints appear well-preserved Office Assistance: GONZALO Transcribe Date/Time: May 29 2021 12:28P Dictated by : CHINA LEDBETTER DO This examination was interpreted and the report reviewed and electronically signed by: CHINA LEDBETTER DO on Apr 11 2022 12:35PM EST [id number] Normal [facility] XR CHEST 2V FRONTAL/LATon XR CHEST [...] IMPRESSION: Stable chest. No acute cardiopulmonary process. Office Assistance: PSCB Transcribe Date/Time: Feb 14 2021 1:27P Dictated by : DONAVAN WREN MD This examination was interpreted and the report reviewed and electronically signed by: DONAVAN WREN MD on Feb 14 2021 1:30PM EST [id number] Normal [facility] Vital Signs Date Time Vital Sign Value Performing Clinician Faci federicoy 10-27-2024 11:07-0400 Body height 175.[address] Shane Das DO Work Phone: [facility] 10-27-2024 11:07-0400 Body mass index (BMI) [Ratio] 33.6 kg/m2 Dr. Shane Das DO Work Phone: [facility] 10-27-2024 11:07-0400 Body temperature 98.6 [degF] Dr. Shane Das DO Work Phone: [facility] 10-27-2024 11:07-0400 Body weight 103.[address] Shane Das DO Work Phone: [facility] 10-27-2024 11:07-0400 Diastolic blood pressure 90 mm[Hg] Dr. Shane Das DO Work Phone: [facility] 10-27-2024 11:07-0400 Heart rate 74 /min Dr. Shane Das DO Work Phone: [facility] 10-27-2024 11:07-0400 Respiratory rate 18 /min Dr. Shane Das DO Work Phone: [facility] 10-27-2024 11:07-0400 SaO2% (BldA) [Mass fraction] 94 % Dr. Shane Das DO Work Phone: [facility] 10-27-2024 11:07-0400 Systolic blood pressure 136 mm[Hg] Dr. Shane Das DO Work Phone: [facility] 10-15-2024 08:23-0400 Body mass index (BMI) [Ratio] 32.6 kg/m2 Dr. Shane Das DO Work Phone: [facility] 10-15-2024 08:23-0400 Body temperature 97.4 [degF] Dr. Shane Das DO Work Phone: [facility] 10-15-2024 08:23-0400 Body weight 100.[address] Shane Das DO Work Phone: [facility] 10-15-2024 08:23-0400 Diastolic blood pressure 84 mm[Hg] Dr. Shane Das DO Work Phone: [facility] 10-15-2024 08:23-0400 Heart rate 74 /min Dr. Shane Das DO Work Phone: [facility] 10-15-2024 08:23-0400 Respiratory rate 18 /min Dr. Shane Das DO Work Phone: [facility] 10-15-2024 08:23-0400 SaO2% (BldA) [Mass fraction] 93 % Dr. Shane Das DO Work Phone: [facility] 10-15-2024 08:23-0400 Systolic blood pressure 188 mm[Hg] Dr. Shane Das DO Work Phone: [facility] 09-25-2024 09:49-0400 Body height 175.[address] Shane Das DO Work Phone: [facility] 09-25-2024 09:49-0400 Body mass index (BMI) [Ratio] 32.1 kg/m2 Dr. Shane Das DO Work Phone: [facility] 09-25-2024 09:49-0400 Body temperature 97.4 [degF] Dr. Shane Das DO Work Phone: [facility] 09-25-2024 09:49-0400 Body weight 98.[address] Shane Das DO Work Phone: [facility] 09-25-2024 09:49-0400 Diastolic blood pressure 84 mm[Hg] Dr. Shane Das DO Work Phone: [facility] 09-25-2024 09:49-0400 Heart rate 75 /min Dr. Shane Das DO Work Phone: [facility] 09-25-2024 09:49-0400 Respiratory rate 18 /min Dr. Shane Das DO Work Phone: [facility] 09-25-2024 09:49-0400 SaO2% (BldA) [Mass fraction] 94 % Dr. Shane Das DO Work Phone: [facility] 09-25-2024 09:49-0400 Systolic blood pressure 148 mm[Hg] Dr. Shane Das DO Work Phone: [facility] 09-14-2024 12:09-0400 Body height 175.[address] Shane Das DO Work Phone: [facility] 09-14-2024 12:09-0400 Body mass index (BMI) [Ratio] 32.4 kg/m2 Dr. Shane Das DO Work Phone: [facility] 09-14-2024 12:09-0400 Body temperature 97 [degF] Dr. Shane Das DO Work Phone: [facility] 09-14-2024 12:09-0400 Body weight 99.[address] Shane Das DO Work Phone: [facility] 09-14-2024 12:09-0400 Diastolic blood pressure 94 mm[Hg] Dr. Shane Das DO Work Phone: [facility] 09-14-2024 12:09-0400 Heart rate 74 /min Dr. Shane Das DO Work Phone: [facility] 09-14-2024 12:09-0400 Respiratory rate 16 /min Dr. Shane Das DO Work Phone: [facility] 09-14-2024 12:09-0400 SaO2% (BldA) [Mass fraction] 95 % Dr. Shane Das DO Work Phone: [facility] 09-14-2024 12:09-0400 Systolic blood pressure 160 mm[Hg] Dr. Shane Das DO Work Phone: [facility] 05-19-2024 10:12-0400 Body mass index (BMI) [Ratio] 33.4 kg/m2 Dr. Shane Das DO Work Phone: [facility] 05-19-2024 10:12-0400 Body temperature 95.7 [degF] Dr. Shane Das DO Work Phone: [facility] 05-19-2024 10:12-0400 Body weight 102.[address] Shane Das DO Work Phone: [facility] 05-19-2024 10:12-0400 Diastolic blood pressure 80 mm[Hg] Dr. Shane Das DO Work Phone: [facility] 05-19-2024 10:12-0400 Heart rate 69 /min Dr. Shane Das DO Work Phone: [facility] 05-19-2024 10:12-0400 Respiratory rate 20 /min Dr. Shane Das DO Work Phone: [facility] 05-19-2024 10:12-0400 SaO2% (BldA) [Mass fraction] 96 % Dr. Shane Das DO Work Phone: [facility] 05-19-2024 10:12-0400 Systolic blood pressure 148 mm[Hg] Dr. Shane Das DO Work Phone: [facility] 04-23-2024 10:18-0500 Body height 175.[address] Shane Das DO Work Phone: [facility] 04-23-2024 10:18-0500 Body mass index (BMI) [Ratio] 32.6 kg/m2 Dr. Shane Das DO Work Phone: [facility] 04-23-2024 10:18-0500 Body weight 100.[address] Shane Das DO Work Phone: [facility] 02-18-2024 12:14-0500 Body mass index (BMI) [Ratio] 32.8 kg/m2 Dr. Shane Das DO Work Phone: [facility] 02-18-2024 12:14-0500 Body weight 100.[address] Shane Das DO Work Phone: [facility] 01-28-2024 11:18-0500 Body mass index (BMI) [Ratio] 32.5 kg/m2 Dr. Shane Das DO Work Phone: [facility] 01-28-2024 11:18-0500 Body temperature 97.6 [degF] Dr. Shane Das DO Work Phone: [facility] 01-28-2024 11:18-0500 Body weight 102.[address] Shane Das DO Work Phone: [facility] 01-28-2024 11:18-0500 Diastolic blood pressure 78 mm[Hg] Dr. Shane Das DO Work Phone: [facility] 01-28-2024 11:18-0500 Heart rate 80 /min Dr. Shane Das DO Work Phone: [facility] 01-28-2024 11:18-0500 Respiratory rate 16 /min Dr. Shane Das DO Work Phone: [facility] 01-28-2024 11:18-0500 SaO2% (BldA) [Mass fraction] 98 % Dr. Shane Das DO Work Phone: [facility] 01-28-2024 11:18-0500 Systolic blood pressure 130 mm[Hg] Dr. Shane Das DO Work Phone: [facility] 05-07-2023 10:33-0400 Body height 172.[address] Shane Das Work Phone: [facility] 05-07-2023 10:33-0400 Body mass index (BMI) [Ratio] 35.1 kg/m2 Dr. Shane Das Work Phone: [facility] 05-07-2023 10:33-0400 Body temperature 98.3 [degF] Dr. Shane Das Work Phone: [facility] 05-07-2023 10:33-0400 Body weight 104.[address] Shane Das Work Phone: [facility] 05-07-2023 10:33-0400 Diastolic blood pressure 70 mm[Hg] Dr. Shane Das Work Phone: [facility] 05-07-2023 10:33-0400 Heart rate 82 /min Dr. Shane Das Work Phone: [facility] 05-07-2023 10:33-0400 Respiratory rate 20 /min Dr. Shane Das Work Phone: [facility] 05-07-2023 10:33-0400 SaO2% (BldA) [Mass fraction] 97 % Dr. Shane Das Work Phone: [facility] 05-07-2023 10:33-0400 Systolic blood pressure 106 mm[Hg] Dr. Shane Das Work Phone: [facility] 03-12-2023 09:50-0500 Body mass index (BMI) [Ratio] 35.2 kg/m2 Dr. Shane Das Work Phone: [facility] 03-12-2023 09:50-0500 Body temperature 98.2 [degF] Dr. Shane Das Work Phone: [facility] 03-12-2023 09:50-0500 Body weight 105.[address] Shane Das Work Phone: [facility] 03-12-2023 09:50-0500 Diastolic blood pressure 69 mm[Hg] Dr. Shane Das Work Phone: [facility] 03-12-2023 09:50-0500 Heart rate 79 /min Dr. Shane Das Work Phone: [facility] 03-12-2023 09:50-0500 SaO2% (BldA) [Mass fraction] 99 % Dr. Shane Das Work Phone: [facility] 03-12-2023 09:50-0500 Systolic blood pressure 136 mm[Hg] Dr. Shane Das Work Phone: [facility] 12-05-2022 06:31-0400 Body height 172.[address] Shane Das Work Phone: [facility] 12-05-2022 06:31-0400 Body mass index (BMI) [Ratio] 34.2 kg/m2 Dr. Shane Das Work Phone: [facility] 12-05-2022 06:31-0400 Body temperature 97.4 [degF] Dr. Shane Das Work Phone: [facility] 12-05-2022 06:31-0400 Body weight 102.[address] Shane Das Work Phone: [facility] 12-05-2022 06:31-0400 Diastolic blood pressure 66 mm[Hg] Dr. Shane Das Work Phone: [facility] 12-05-2022 06:31-0400 Heart rate 74 /min Dr. Shane Das Work Phone: [facility] 12-05-2022 06:31-0400 Respiratory rate 16 /min Dr. Shane Das Work Phone: [facility] 12-05-2022 06:31-0400 SaO2% (BldA) [Mass fraction] 93 % Dr. Shane Das Work Phone: [facility] 12-05-2022 06:31-0400 Systolic blood pressure 116 mm[Hg] Dr. Shane Das Work Phone: [facility] 11-07-2022 13:33-0400 Body mass index (BMI) [Ratio] 34.2 kg/m2 Dr. Shane Das Work Phone: [facility] 11-07-2022 13:33-0400 Body temperature 96.4 [degF] Dr. Shane Das Work Phone: [facility] 11-07-2022 13:33-0400 Body weight 102.[address] Shane Das Work Phone: [facility] 11-07-2022 13:33-0400 Diastolic blood pressure 64 mm[Hg] Dr. Shane Das Work Phone: [facility] 11-07-2022 13:33-0400 Heart rate 72 /min Dr. Shane Das Work Phone: [facility] 11-07-2022 13:33-0400 Respiratory rate 18 /min Dr. Shane Das Work Phone: [facility] 11-07-2022 13:33-0400 SaO2% (BldA) [Mass fraction] 95 % Dr. Shane Das Work Phone: [facility] 11-07-2022 13:33-0400 Systolic blood pressure 112 mm[Hg] Dr. Shane Das Work Phone: [facility] 10-23-2022 12:30-0400 Body mass index (BMI) [Ratio] 33.4 kg/m2 Dr. Shane Das Work Phone: [facility] 10-23-2022 12:30-0400 Body temperature 96.2 [degF] Dr. Shane Das Work Phone: [facility] 10-23-2022 12:30-0400 Body weight 102.[address] Shane Das Work Phone: [facility] 10-23-2022 12:30-0400 Diastolic blood pressure 73 mm[Hg] Dr. Shane Das Work Phone: [facility] 10-23-2022 12:30-0400 Heart rate 78 /min Dr. Shane Das Work Phone: [facility] 10-23-2022 12:30-0400 Respiratory rate 16 /min Dr. Shane Das Work Phone: [facility] 10-23-2022 12:30-0400 SaO2% (BldA) [Mass fraction] 91 % Dr. Shane Das Work Phone: [facility] 10-23-2022 12:30-0400 Systolic blood pressure 153 mm[Hg] Dr. Shane Das Work Phone: [facility] 09-18-2022 15:26-0400 Body mass index (BMI) [Ratio] 36 kg/m2 Dr. Shane Das Work Phone: [facility] 09-18-2022 15:26-0400 Body temperature 98.4 [degF] Dr. Shane Das Work Phone: [facility] 09-18-2022 15:26-0400 Body weight 104.[address] Shane Das Work Phone: [facility] 09-18-2022 15:26-0400 Diastolic blood pressure 86 mm[Hg] Dr. Shane Das Work Phone: [facility] 09-18-2022 15:26-0400 Heart rate 69 /min Dr. Shane Das Work Phone: [facility] 09-18-2022 15:26-0400 Respiratory rate 16 /min Dr. Shane Das Work Phone: [facility] 09-18-2022 15:26-0400 SaO2% (BldA) [Mass fraction] 98 % Dr. Shane Das Work Phone: [facility] 09-18-2022 15:26-0400 Systolic blood pressure 132 mm[Hg] Dr. Shane Das Work Phone: [facility] 06-19-2022 15:00-0400 Body height 170.[address] Shane Das Work Phone: [facility] 06-19-2022 15:00-0400 Body mass index (BMI) [Ratio] 36.3 kg/m2 Dr. Shane Das Work Phone: [facility] 06-19-2022 15:00-0400 Body temperature 97.8 [degF] Dr. Shane Das Work Phone: [facility] 06-19-2022 15:00-0400 Body weight 105.[address] Shane Das Work Phone: [facility] 06-19-2022 15:00-0400 Diastolic blood pressure 78 mm[Hg] Dr. Shane Das Work Phone: [facility] 06-19-2022 15:00-0400 Heart rate 69 /min Dr. Shane Das Work Phone: [facility] 06-19-2022 15:00-0400 Respiratory rate 16 /min Dr. Shane Das Work Phone: [facility] 06-19-2022 15:00-0400 SaO2% (BldA) [Mass fraction] 93 % Dr. Shane Das Work Phone: [facility] 06-19-2022 15:00-0400 Systolic blood pressure 132 mm[Hg] Dr. Shane Das Work Phone: [facility] 05-17-2022 12:52-0400 Body height 170.[address] Shane Das Work Phone: [facility] 05-17-2022 12:52-0400 Body mass index (BMI) [Ratio] 35.6 kg/m2 Dr. Shane Das Work Phone: [facility] 05-17-2022 12:52-0400 Body temperature 95.7 [degF] Dr. Shane Das Work Phone: [facility] 05-17-2022 12:52-0400 Body weight 103.[address] Shane Das Work Phone: [facility] 05-17-2022 12:52-0400 Diastolic blood pressure 74 mm[Hg] Dr. Shane Das Work Phone: [facility] 05-17-2022 12:52-0400 Heart rate 74 /min Dr. Shane aDs Work Phone: [facility] 05-17-2022 12:52-0400 Respiratory rate 18 /min Dr. Shane Das Work Phone: [facility] 05-17-2022 12:52-0400 SaO2% (BldA) [Mass fraction] 96 % Dr. Shane Das Work Phone: [facility] 05-17-2022 12:52-0400 Systolic blood pressure 114 mm[Hg] Dr. Shane Das Work Phone: [facility] 04-07-2022 10:31-0500 Body temperature 97.5 [degF] Dr. Shane Das Work Phone: [facility] 04-07-2022 10:31-0500 Diastolic blood pressure 64 mm[Hg] Dr. Shane Das Work Phone: [facility] 04-07-2022 10:31-0500 Heart rate 73 /min Dr. Shane Das Work Phone: [facility] 04-07-2022 10:31-0500 Respiratory rate 14 /min Dr. Shane Das Work Phone: [facility] 04-07-2022 10:31-0500 SaO2% (BldA) [Mass fraction] 97 % Dr. Shane Das Work Phone: [facility] 04-07-2022 10:31-0500 Systolic blood pressure 128 mm[Hg] Dr. Shane Das Work Phone: [facility] 03-01-2022 11:08-0500 Body mass index (BMI) [Ratio] 36.1 kg/m2 Dr. Shane Das Work Phone: [facility] 03-01-2022 11:08-0500 Body temperature 97.8 [degF] Dr. Shane Das Work Phone: [facility] 03-01-2022 11:08-0500 Body weight 104.[address] Shane Das Work Phone: [facility] 03-01-2022 11:08-0500 Diastolic blood pressure 76 mm[Hg] Dr. Shane Das Work Phone: [facility] 03-01-2022 11:08-0500 Heart rate 85 /min Dr. Shane Das Work Phone: [facility] 03-01-2022 11:08-0500 Respiratory rate 16 /min Dr. Shane Das Work Phone: [facility] 03-01-2022 11:08-0500 SaO2% (BldA) [Mass fraction] 96 % Dr. Shane Das Work Phone: [facility] 03-01-2022 11:08-0500 Systolic blood pressure 120 mm[Hg] Dr. Shane Das Work Phone: [facility] 06-27-2021 13:27-0400 Body height 170.[address] Shane Das Work Phone: [facility] Work Phone: 06-27-2021 13:27-0400 Body mass index (BMI) [Ratio] 35.4 kg/m2 Dr. Shane Das Work Phone: [facility] Work Phone: 06-27-2021 13:27-0400 Body temperature 97.6 [degF] Dr. Shane Das Work Phone: [facility] Work Phone: 06-27-2021 13:27-0400 Body weight 102.[address] Shane Das Work Phone: [facility] Work Phone: 06-27-2021 13:27-0400 Diastolic blood pressure 80 mm[Hg] Dr. Shane Das Work Phone: [facility] Work Phone: 06-27-2021 13:27-0400 Heart rate 79 /min Dr. Shane Das Work Phone: [facility] Work Phone: 06-27-2021 13:27-0400 Respiratory rate 14 /min Dr. Shane Das Work Phone: [facility] Work Phone: 06-27-2021 13:27-0400 SaO2% (BldA) [Mass fraction] 97 % Dr. Shane Das Work Phone: [facility] Work Phone: 06-27-2021 13:27-0400 Systolic blood pressure 154 mm[Hg] Dr. Shane Das Work Phone: [facility] Work Phone: 05-29-2021 09:03-0400 Body mass index (BMI) [Ratio] 36 kg/m2 Dr. Shane Das Work Phone: [facility] Work Phone: 05-29-2021 09:03-0400 Body temperature 96.9 [degF] Dr. Shane Das Work Phone: [facility] Work Phone: 05-29-2021 09:03-0400 Body weight 104.[address] Shane Das Work Phone: [facility] Work Phone: 05-29-2021 09:03-0400 Diastolic blood pressure 84 mm[Hg] Dr. Shane Das Work Phone: [facility] Work Phone: 05-29-2021 09:03-0400 Heart rate 85 /min Dr. Shane Das Work Phone: [facility] Work Phone: 05-29-2021 09:03-0400 Respiratory rate 18 /min Dr. Shane Das Work Phone: [facility] Work Phone: 05-29-2021 09:03-0400 SaO2% (BldA) [Mass fraction] 94 % Dr. Shane Das Work Phone: [facility] Work Phone: 05-29-2021 09:03-0400 Systolic blood pressure 134 mm[Hg] Dr. Shane Das Work Phone: [facility] Work Phone: Encounters Encounter Date Encounter Type Care Provider Facility Start: 12-03-2024 ambulatory Shane Das [facility] y:[facility] Start: 10-27-2024 End: 10-27-[address] Shane Perez DO -[facility] Work Phone: Start: 10-27-2024 End: 10-27-[address] Shane Das DO Work Phone: -[facility] Start: 10-27-2024 End: 10-27-2024 ambulatory Shane Das Facility:[facility] Start: 10-22-2024 End: 10-22-2024 Patient encounter procedure Antonette FRITZ -Laboratory Specimen Work Phone: Start: 10-22-2024 End: 10-22-[address] Shane Das DO Work Phone: -Laboratory Specimen Start: 10-15-2024 End: 10-15-2024 Patient encounter procedure Antonette Patterson WELDING EQUIPMENT REPAIRER-C -[facility] Work Phone: Start: 10-15-2024 End: 10-15-[address] Shane Das DO Work Phone: -[facility] Start: 09-28-2024 End: 09-28-[address] Shane Das DO Work Phone: -Laboratory Start: 09-28-2024 End: 09-28-2024 Patient encounter procedure Antonette Patterson WELDING EQUIPMENT REPAIRER-C -Laboratory Work Phone: Start: 09-28-2024 End: 09-28-2024 ambulatory Antonette Patterson WELDING EQUIPMENT REPAIRER Facility:[facility] Start: 09-25-2024 End: 09-25-2024 Patient encounter procedure Antonette Patterson WELDING EQUIPMENT REPAIRER-C -[facility] Work Phone: Start: 09-25-2024 End: 09-25-[address] Shane Das DO Work Phone: -[facility] Start: 09-25-2024 End: 09-25-2024 ambulatory Antonette Patterson WELDING EQUIPMENT REPAIRER Facility:[facility] Start: 09-14-2024 End: 09-14-2024 Patient encounter procedure Yari Garcia WELDING EQUIPMENT REPAIRER-C -[facility] Work Phone: Start: 09-14-2024 End: 09-14-[address] Shane Das DO Work Phone: -[facility] Start: 05-19-2024 End: 05-19-[address] Shane Perez DO -[facility] Work Phone: Start: 05-19-2024 End: 05-19-2024 ambulatory Shane Das Facility:[facility] Start: 04-23-2024 End: 04-23-2024 Patient encounter procedure Amalia JOHNSON -[facility] Work Phone: Start: 04-23-2024 End: 04-23-2024 ambulatory Shane Das Facility:[facility] Start: 04-16-2024 End: 04-16-[address] Shane Das DO Work Phone: [facility] Work Phone: Start: 04-16-2024 End: 04-16-2024 Patient encounter procedure Amalia JOHNSON -[facility] Work Phone: Start: 04-16-2024 End: 04-16-2024 ambulatory Shane Das Facility:[facility] Start: 02-18-2024 End: 02-18-2024 Patient encounter procedure Amalia JOHNSON -[facility] Work Phone: Start: 02-18-2024 End: 02-18-2024 ambulatory Shane Das Facility:[facility] Start: 01-28-2024 End: 01-28-[address] Shane Perez DO -[facility] Work Phone: Start: 01-28-2024 End: 01-28-2024 ambulatory Shane Das Facility:[facility] Start: 12-29-2023 Encounter for preprocedural laboratory examination Antonette Patterson [facility] Start: 12-24-2023 End: 12-24-2023 ambulatory Shane Das Facility:[facility] Start: 12-17-2023 End: 12-17-2023 ambulatory Shane Das Facility:[facility] Start: 12-02-2023 End: 12-02-2023 ambulatory Shane Das Facility:[facility] Start: 06-20-2023 End: 06-20-[address] Shane Das Work Phone: [facility] Work Phone: Start: 06-20-2023 End: 06-20-[address] Shane Das Work Phone: [facility] Work Phone: Start: 05-07-2023 End: 05-07-[address] Shane Das Work Phone: [facility] Work Phone: Start: 03-12-2023 End: 03-12-[address] Shane Das Work Phone: [facility] Work Phone: Start: 12-18-2022 End: 12-18-[address] Shane Das Work Phone: [facility] Work Phone: Start: 12-18-2022 End: 12-18-[address] Shane Das Work Phone: [facility] Start: 12-05-2022 End: 12-05-[address] [facility] Das [facility] Work Phone: Start: 2022 End: [address] Shane Das Work Phone: [facility] Work Phone: Start: 11-07-2022 End: 11-07-[address] Shane Das Work Phone: [facility] Work Phone: Start: 10-23-2022 End: 10-23-[address] Shane Dsa Work Phone: [facility] Work Phone: Start: 09-18-2022 End: 09-18-[address] Shane Das Work Phone: [facility] Work Phone: Start: 06-22-2022 Non-patient / Non-visit Dr. Francis Work Phone: [facility] Start: 06-21-2022 End: 06-21-[address] Shane Das Work Phone: [facility] Work Phone: Start: 06-21-2022 End: 06-21-[address] Shane Das Work Phone: [facility]-Pulmonary Services/Neurology Start: 06-19-2022 End: 06-19-[address] Shane Das Work Phone: [facility] Start: 05-17-2022 End: 05-17-[address] Shane Das Work Phone: [facility] Work Phone: Start: 05-17-2022 End: 05-17-[address] Shane Das Work Phone: [facility] Start: 05-17-2022 End: 05-17-[address] Shane Das Work Phone: [facility] Start: 04-07-2022 End: 04-07-[address] Shane Das Work Phone: [facility] Start: 03-01-2022 End: 03-01-[address] Shane Das Work Phone: [facility] Start: 07-20-2021 End: 07-20-[address] Shane Das Work Phone: [facility] Start: 06-27-2021 End: 06-27-[address] Shane Das Work Phone: [facility] Start: 06-07-2021 End: 06-07-[address] Shane Das Work Phone: [facility] Start: 05-29-2021 End: 05-29-2021 Subsequent hospital visit by physician Xr [facility] Ismael [facility] Work Phone: Radiology Start: 05-29-2021 End: 05-29-[address] Sahne Das Work Phone: [facility] Procedures Date Procedure Procedure Detail Performing Clinician Start: 10-22-2024 Gram stain microscopy Carolyn Das DO Work Phone: Start: 10-22-2024 Respiratory microbia l culture Dr. Shane Das DO Work Phone: Start: 09-28-[address] Shane [...] Work Phone: Comment on above: Performed at: [address] [id number] Director: Lokesh Stevenson MD, Phone: [phone] Start: 09-28-2024 Plantain (Vincentian) RAST Dr. Shane Das DO Work Phone: Start: 09-25-2024 Gram stain microscopy Carolyn Das DO Work Phone: Start: 09-25-2024 Respiratory [...] pelvi s and lower extremity Dr. Shane Das Work Phone: Start: 06-07-2021 X-ray of lumbar spin e, two or three views Dr. Shane Das Work Phone: Start: 05-29-2021 Radex hip unilateral with pelvis 2-3 views [facility] Provider Plan of Treatment Date Care Activity Detail Author Start: 10-27-2024 CBC W Auto Differential panel - Blood [facility] Start: 10-27-2024 Comprehensive metabolic 2000 panel - Serum or Plasma [facility] Start: 09-28-2024 IgE [Units/volume] in Serum or Plasma [facility] Start: 09-28-2024 [facility] Start: 01-28-2024 Patient referral [facility] Work Phone: Start: 03-12-2023 Patient referral [facility] Work Phone: Start: 12-18-2022 Positron emission tomography with computed tomography [facility] Start: 09-18-2022 Patient referral [facility] Work Phone: Start: 10-19-2021 Influenza vaccination INFLUENZA (Season Ended) [facility] Start: 05-31-2021 Patient referral [facility] Work Phone: Start: 02-18-2021 ADVANCE DIRECTIVE DISCUSSION ADVANCE DIRECTIVE DISCUSSION [facility] Start: 09-06-2019 DIABETES SCREEN DIABETES SCREEN [facility] Start: 11-18-2016 PNEUMOVAX AGE 65 AND OVER WITH 5YR LOOKBACK (#1) PNEUMOVAX AGE 65 AND OVER WITH 5YR LOOKBACK (#1) [facility] Start: 06-03-2016 LIPID SCREEN LIPID SCREEN [facility] Start: 11-18-2001 SHINGRIX VACCINE (1 of 2) SHINGRIX VACCINE (1 of 2) [facility] Start: 11-18-1996 COLOGUARD (FIT-DNA) COLOGUARD (FIT-DNA) [facility] Start: 11-18-1996 Colonoscopy COLONOSCOPY [facility] Start: 11-18-1996 COLORECTAL CANCER SCREENING COLORECTAL CANCER SCREENING [facility] Start: 11-18-[address] COLONOGRAPHY [facility] Start: 11-18-1996 FECAL OCCULT BLOOD FECAL OCCULT BLOOD [facility] Start: 11-18-1996 SIGMOIDOSCOPY SIGMOIDOSCOPY [facility] Start: 11-18-1970 Urine microalbumin profile DTAP,TDAP,TD (1 - Tdap) [facility] Start: 11-18-1969 ANNUAL PCP TEAM CHRONIC DISEASE VISIT ANNUAL PCP TEAM CHRONIC DISEASE VISIT [facility] Start: 11-18-1969 BP CONTROLLED (<130/80) BP CONTROLLED (<130/80) [facility] Start: 11-18-1969 HEPATITIS C SCREENING HEPATITIS C SCREENING [facility] Start: 11-18-1969 SPIROMETRY SPIROMETRY [facility] Start: 1963 Adult depression screening assessment DEPRESSION SCREENING [facility] Start: 11-18-1956 COVID-19 VACCINE (1) COVID-19 VACCINE (1) [facility] Start: 1950 ABDOMINAL AORTIC ANEURYSM SCREENING ABDOMINAL AORTIC ANEURYSM SCREENING [facility] Alanine aminotransfe rase [Enzymatic activity/volume] in Serum or Plasma [facility] Albumin [Mass/volume ] in Serum or Plasma [facility] Alkaline phosphatase [Enzymatic activity/volume] in Serum or Plasma [facility] [place] house dust mite IgE Ab [Units/volume] in Serum [facility] Anion gap in Serum o r Plasma [facility] Bacteria identified in Sputum by Culture [facility] Bacteria identified in Sputum by Culture [facility] Bermuda grass IgE Ab [Units/volume] in Serum [facility] Bilirubin, total measurement [facility] BUN/Creatinine ratio [facility] Calcium [Mass/volume ] in Serum or Plasma [facility] Carbon dioxide, tota l [Moles/volume] in Central venous blood [facility] Cat dander IgE Ab [Units/volume] in Serum [facility] CBC W Auto Different ial panel - Blood [facility] Common Ragweed IgE A b [Units/volume] in Serum [facility] Creatinine [Mass/vol ume] in Serum or Plasma [facility] Dog epithelium IgE A b [Units/volume] in Serum [facility] Erythrocyte mean corpuscular volume determination [facility] house dust mite IgE Ab [Units/volume] in Serum [facility] Glucose [Mass/volume ] in Serum or Plasma [facility] Hematocrit [Volume Fraction] of Blood [facility] Hemoglobin [Mass/vol ume] in Blood [facility] IgE [Units/volume] i n Serum or Plasma [facility] Kentucky blue grass IgE Ab [Units/volume] in Serum [facility] Leukocytes [#/volume ] in Blood [facility] Mean corpuscular hem oglobin concentration determination [facility] Mean corpuscular hem oglobin determination [facility] Measurement of Asper gillus flavus antibody [facility] Measurement of Asper gillus fumigatus antibody [facility] Measurement of Asper gillus niger antibody [facility] Measurement of renal function [facility] Mouse urine proteins RAST [facility] Neutrophil count [facility] Neutrophil cytoplasm ic Ab.classic [Units/volume] in Serum [facility] Neutrophil percent differential count [facility] P-ANCA measurement [facility] Patient referral [facility] Work Phone: Plantain (Vincentian) RAST [facility] Platelets [#/volume] in Blood [facility] Positron emission tomography with computed tomography [facility] Potassium measurement [facility] Red blood cell count [facility] Red cell distributio n width determination [facility] Serum chloride measurement [facility] Sodium measurement [facility] Total protein measurement [facility] Urea nitrogen [Mass/ volume] in Serum or Plasma [facility] White Elm IgE Ab [Units/volume] in Serum [facility] Oden IgE Ab [Units/volume[facility] Payers Date Payer Category Payer Medicare [id number] 2023 Self-pay [id number] 2023 Medicaid [id number] Unknown [id number] 2020 Medicare MMO MEDICARE MMO MEDADVANTAGE O [id number] 2020-[facility] [phone] [address] [place] [address] O [id number] Medicare MEDICARE PART A B [id number] Unknown [id number] Unknown [id number] Unknown [id number] Unknown [id number] Unknown [id number] [id number] Unknown [id number] [id number] Unknown [id number] [id number] Unknown [id number] [id number] Unknown [id number] [id number] Unknown [id number] [id number] Unknown [id number] [id number] Unknown [id number] [id number]2 Unknown [id number] [id number] Unknown [id number] [id number] Unknown [id number] [id number] Unknown [id number] [id number] Unknown [id number] [id number] Unknown [id number] [id number] Unknown [id number] [id number] Unknown [id number] Social History Date Type Detail Facility Start: 02-23-[facility] Start: 02-23-2011 Cigarettes smoked current (pack per day) - Reported 0.5 [facility] Start: 02-23-2011 Tobacco use and exposure Smokeless tobacco non-user [facility] Start: 05-22-2011 Alcohol intake 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) [facility] Start: 03-23-2011 History SDOH Alcohol Comment recovering 26yrs sobber [facility] Start: 03-23-2011 Tobacco Comment soming alot less now [facility] Start: 1950 Sex Assigned At Not on file [facility] Start: 06-27-2021 End: 05-07-2023 Tobacco smoking status ILIS Unknown if ever smoked [facility] Start: 1950 Sex Assigned At Male [facility] Start: 08-20-2023 [facility] Start: 04-29-2024 Sex Male (finding) [facility] Start: 09-25-2024 [facility] Current some day smoker [facility] Sex Male [facility] Clinical Notes 02-14-2021 to 10-27-2024 Note Date & Type Note Facility 10-27-2024 Progress note [facility] 10-27-2024 Progress note Note Date/Time October 27, 2024 11:33am [facility] [address] [place] [address] [place] [address] OFFICE VISIT Date of Service: 10/27/24 MR#: [id number] Acct: [id number] Name: MAGED SÁNCHEZ Rep #: [id number] : 1950 Provider: Dr. 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 Required: No Is patient in pain?: No Allergies grass pollen Allergy (Intermediate, Verified 10/27/24 10:53) Watery eyes,Sneezing, Runny nose, fexofenadine (From Yelena) Allergy (Verified 10/27/24 10:53) Hives pollen extracts Allergy (Verified 10/27/24 10:53) Congestion sertraline Adverse Reaction (Severe, Verified 10/27/24 10:53) suicidal thoughts Medications ?Medication ?Instructions ?Recorded ?Confirmed ?Type vitamin C 45 mg-zinc citrate 3.75 tab PO 05/17/22 09/11/12 History mg-elderberry 50 mg chewable tablet (iMapData) diphenhydramine 25 1 tab PO QHS PRN 05/07/23 History mg-acetaminophen 500 mg tablet (Tylenol PM Extra Strength) fluticasone propionate 50 1 spray intranasal QDAY 01/1810/27/24 History mcg/actuation nasal spray,suspension (24 Hour Allergy Relief) tamsulosin 0.4 mg capsule See Rx Instructions .Route 0 05/19/24 10/27/24 Rx .COMPLEX #90 caps benazepril 20 mg tablet 10 mg (1/2 x 20 mg) PO DAILY #45 08/10/24 10/27/24 Rx TABLETS acetaminophen 325 mg capsule 325 mg PO ONCE PRN 10/27/24 History cetirizine 10 mg tablet 10 mg PO DAILY PRN allergy 0 09/25/24 10/27/24 Rx symptoms #90 tabs meloxicam 15 mg tablet 15 mg PO DAILY #30 tabs 09/1810/27/24 Rx budesonide-formoterol HFA 160 2 puff inhalation BID #1 0.2 grams 10/07/24 10/27/24 Rx mcg-4.5 mcg/actuation aerosol inhaler (Symbicort) dupilumab 300 mg/2 mL subcutaneous 300 mg (2 mL) subcu t Q2W #2 mL 10/15/24 10/27/24 Rx pen injector (Dupixent) dupilumab 300 mg/2 mL subcutaneous 600 mg (4 mL) subcu t ONCE #4 mL 10/15/24 10/27/24 Rx pen injector (Dupixent) hydrochlorothiazide 25 mg tablet 25 mg .Route QDAY #90 tabs 10/27/24 10/27/24 Rx Have you fallen in the past year?: Yes (uncertain timing-) Nurse's Note: Pt states that last few times he's taken bp it has been 190/90's. Pt just finished a prednisone taper, and has had stress w/ sister being sick w/ cancer. Pt was on chantix but having bizzare dreams so he quit taking it. Pt has been smoking about 6 weeks now. pt smokes 1/2ppd. Pt states he was a ppd smoker prior to the chantix. [facility] Medical History Sprain of left foot Strain [...] spinal fusion History of colonoscopy History of esophagogastroduodenoscopy (EGD) History of tonsillectomy History of back surgery Family History Mother Heart disease Hypertension Osteoporosis CVA (cerebral vascular accident) Father Heart disease Hypertension CRANIAL ANEUY Sister Cancer kidney Hypertension Kidney disease Thyroid disorder Grandfather Alcoholism Grandmother Colon cancer Sister Cancer Social History Smoking Status: Current some day smoker Tobacco: How many years used: 50 second hand exposure: No alcohol intake: never substance use type: does not use what type of physical activity do you participate in: walking, running and weight training frequency: 1-2 times per week HPI HPI Details: MAGED SÁNCHEZ, is a 73 M who presents to the office today for concerns about elevated blood pressure and and uncertainty whether he wants to take injectable Dupixent. ROS Const Constitutional: No body ache, chills, excessive sweating, fatigue, fever(s), frequent falls, headache(s), snoring, weakness, sleep problems or change in appetite Eyes Eyes: No blurry vision, change in vision, eye pain or Light sensitivity ENT ENT: No abnormal hearing, ear or mastoid pain, tinnitus, nasal congestion, headache(s), neck pain or sore throat Resp Respiratory: No cough, shortness of breath, snoring or wheezing Cardio Cardiology: No chest pain at rest, chest pain with exertion, excessive sweating,shortness of breath, dyspnea on exertion, lightheadedness, orthopnea or palpitations Gastro GI: No abdominal pain, change in bowel habits, constipation, cramping, diarrhea,nausea/dyspepsia or vomiting Genitourinary Male: No burning urination, painful urination, urinary incontinence or urinary frequency Musc Musculoskeletal: No abnormal gait, joint pain, back pain, limited range of motion, neck pain or numbness Skin Skin: No dry skin, redness, lesions, itchy eyes, rash or wounds Neuro Neurology: No abnormal gait, abnormal hearing, weakness, frequent falls, headache(s), memory loss or numbness Psych Psychiatric: No anxiety, No change in appetite, No depression, No memory loss and No Thoughts of harming yourself/Others Endo Endocrine: No cold intolerance, excessive sweating, fatigue, flushing, heat intolerance, increased thirst/drinking or increased hunger Aller/Imm Allergy/Immunologic: No itchy eyes, seasonal allergy symptoms, hives or wheezing Vlad/Lymp Hematologic/Lymphatic: No easy bleeding, easy bruising, enlarged lymph nodes or other Exam Const General: cooperative, healthy appearing and no acute distress Nutritional Appearance: average body habitus Orientation: alert, awake and oriented x3 HENMT Head: normal to inspection Ears: hearing grossly normal bilaterally, external ears normal, TM's normal bilaterally and EAC's normal Nose: external nose normal, nares normal, septum normal and no nasal discharge Face and sinus: normal facial exam, sinuses nontender and face symmetric Mouth: oral mucosae normal, lip normal, tongue normal and oropharynx normal Throat: posterior oropharynx normal, tonsils normal, uvula midline and no postnasal drainage Eyes General: appearance normal, both eyes and all related structures Neck Neck: normal visual inspection, full ROM, no lymphadenopathy, no meningeal signsand supple Neck mass: No Thyroid: thyroid normal Lymphatic: no lymphadenopathy noted Chest Chest palpation & inspection: normal inspection of the chest Resp Effort & Inspection: normal respiratory effort, able to speak in complete sentences and symmetric chest movement Auscultation: Bilateral: Clear to Auscultation Cardio Palpation: normal PMI Rate: regular rate Rhythm: regular rhythm Heart Sounds: S1 normal, S2 normal, no gallops, no murmurs and no rubs Pulses: radial pulses present Musc Thoracic/Lumbar Spine: straight leg raise negative bilaterally and thoraco-lumbar ROM limited Skin General: no rashes or lesions noted Neuro General: patient alert, patient awake and patient oriented x3 Cognition: normal cognition Speech: speech normal Psych Appearance: grossly normal Mental Status: mental status grossly normal Mood: congruent mood Affect: normal affect Speech and Movement: speech and movement normal Attitude: cooperative Coding Level of Care Code Off vis,est,level 3 Diagnoses COPD (chronic obstructive pulmonary disease) J44.9 Essential hypertension I10 Hypertension type: essential hypertension BPH (benign prostatic hyperplasia) N40.0 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 He had hallucinations on Chantix so he is not willing to try other medication to try and stop smoking entirely. (2) Hypertension: Status: Chronic Qualifiers: Hypertension type: essential hypertension Qualified Code(s): I10 - Essential (primary) hypertension Plan: He is to take a diuretic with his NURA inhibitor and stopped it but he is runningchronically high blood pressure so would like him to restart his hydrochlorothiazide. (3) BPH (benign prostatic hyperplasia): Status: Chronic Plan: He takes tamsulosin. It controls his nocturia to some degree. His PSAs have been stable. (4) Eosinophilic asthma: Status: Acute Comment: Total eosinophil count 391 Plan: I think this diagnosis may be in question as literature suggests the total eosinophil count needs to be over 500, and according to the patient he has neverhad an asthma attack. Looking back in his information he certainly has COPD butthere is no indication of an asthmatic component. Orders: Orders Comprehensive Metabolic Profil Today I10 - Essential (primary) hypertension CBC W/Diff, Automated Today I10 - Essential (primary) hypertension Medications: Changed From hydrochlorothiazide TAKE 1 TABLET DAILY 90 tabs 3RF To hydrochlorothiazide 25 mg daily; 90 tabs 3RF Plan Details Follow Up: 6 Months Clinical Quality Measures Falls Risk Screening/Assistive Devices Have you fallen in the past year?: Yes (uncertain timing-) 10/27/24 1133 <Electronically signed by Shane duarte DO> Date _ Shane Das DO Cosigner Signature: Date (if applicable) CC: ~ [facility] Work Phone: 1(756) 636-584007-28-2025 Evaluation note* Diagnosis Onset Date Resolution Status Admit Date Acute sinusitis, unspecified acute September 14, 2024 12:09pm [facility] Work Phone: 1(123) 732-208107-28-2025 Evaluation note* Diagnosis Onset Date Resolution Status Admit Date Acute sinusitis, unspecified acute September 14, 2024 12:09pm Asthma chronic September 25 9:48am Seasonal allergies chronic September 25, 2024 9:48am [facility] Work Phone: 1([phone]) 744-945207-28-2025 Evaluation note* Diagnosis Onset Date Resolution Status Admit Date Acute sinusitis, unspecified acute September 14, 2024 12:09pm Asthma chronic September 25 9:48am Seasonal allergies chronic September 25, 2024 9:48am 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 12:42pm [facility] Work Phone: 1([phone]) 141-473607-28-2025 Evaluation note* Diagnosis Onset Date Resolution Status Admit Date Acute sinusitis, unspecified acute September 14, 2024 12:09pm Asthma chronic September 25 9:48am Seasonal allergies chronic September 25, 2024 9:48am Eosinophilic asthma acute Augus 2024 12:42pm Asthma chronic October 15, 025 12:42pm Seasonal allergies chronic October 15, 2024 12:42pm Eosinophilic asthma acute Septe mb2024 10:49am BPH (benign prostatic hyperplasia) chronic October 27, 025 10:49am COPD (chronic obstructive pulmonary disease) chronic October 10:49am Hypertension chronic October 10:49am [facility] Work Phone: 1(194) 280-559304-01-2025 Evaluation note* Diagnosis Onset Date Resolution Status Admit Date BPH (benign prostatic hyperplasia) acute May 19, 2024 10:08am Lumbar radiculopathy acute Apri 2024 10:08am COPD (chronic obstructive pulmonary disease) chronic May 19 10:08am Tobacco abuse chronic May 19, 2024 10:08am Acute sinusitis, unspecified acute September 14, 2024 12:09pm [facility] Work Phone: 1([phone]) 159-732112-10-2024 Evaluation note* Diagnosis Onset Date Resolution Status Admit Date Low back pain acute January 272023 11:10am Lumbar radiculopathy acute Dece 2023 11:10am History of lumbar fusion acute February 18, 2024 11:49am Lumbar radiculopathy acute Dece 2023 11:49am History of lumbar fusion acute April 23, 2024 9:54am Lumbar radiculopathy acute Connor 2024 9:54am [facility] Work Phone: [phone] 128-895905-05-2023 Procedure [facility] 05-29-2021 NoteHNO ID: [id number] Author: RT Sheridan(R) Service: Radiology Author Type: Technologist Type: Progress [...] IV DATA: Not applicable SIGNED BY: RT Sheridan(R) May 29, 2021 10:56 [facility]04-11-2022 History of Present illness Narrative* RT Sheridan(R) - 05/29/2021 10:45 AM EDT Radiology Service [...] IV DATA: Not applicable SIGNED BY: RT Sheridan(R) May 29, 2021 10:56 AM documented in [facility]21 NoteHNO ID: [id number] Author: RT Blayne(R) Service: ? Author Type: [...] IV DATA: Not applicable SIGNED BY: RT Blayne(R) February 14, 2021 [facility]:26 [facility] Diagnosis Onset Date Resolution Status Low back strain acute Herniated nucleus pulposus, L3-4 left acute Back problem chronic Depression chronic Hypertension [facility] Work Phone: Evaluation note* Diagnosis Onset Date Resolution Status Low back strain acute URI (upper respiratory infection) acute Chronic pain chronic Hypertension chronic COVID-19 acute COVID acute Hypertension chronic IBS (irritable bowel syndrome) chronic Tobacco abuse [facility] Work Phone: Evaluation note* Diagnosis Onset Date Resolution Status Low back strain acute URI (upper respiratory infection) acute Chronic pain chronic Hypertension chronic COVID-19 acute COVID acute Hypertension chronic IBS (irritable bowel syndrome) chronic Tobacco abuse chronic Low back pain acute COPD (chronic obstructive pulmonary disease) chronic [facility] Work Phone: Evaluation note* Diagnosis Onset Date Resolution Status Low back strain acute Lumbar radiculopathy acute Contact with and (suspected) exposure to other viral communicable diseases acute COPD (chronic obstructive pulmonary disease) chronic Hypertension chronic Tobacco abuse chronic Asthma acute 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 acute [facility] Work Phone: Evaluation note* Diagnosis Onset Date Resolution Status Insomnia acute Asthma chronic 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 Degenerative disc disease ac selena Chronic pain chronic COPD (chronic obstructive pulmonary disease) chronic Depression chronic Hypertension [facility] Work Phone: [facility] Work Phone: Reason for referral (narrative)No reason for referral information availableSun [facility] Services Work Phone: Summary Purpose Family [...] No May 21, 2019 1:11pm Power of Wood Scaler No May 20 1:11pm Advance Directive Response Recorded Date/ Time Advance Directives No September 19 023 9:03am Living Will No September 19, 2022 9:03am Power of Wood Scaler No September 19 9:03am Advance Directive Response Recorded Date/ Time Advance Directives No September 19 023 9:03am Chief Complaint and Reason for Visit Chief Complaint pulled muscle Lumbar pain xray 1 M FU HNP L3-4/RX HERE Reason for Visit Low back strain Herniated nucleus pulposus, L3-4 left Back problem Depression Hypertension Chief Complaint "PERSONAL" SINUS PRESSURE/COUGH/FEVER/WANTS COVID TEST CHECK UP EORDER- CHEST XRAY chronic cough Reason for Visit Low back strain URI (upper respiratory infection) Chronic pain Hypertension COVID-19 COVID Hypertension IBS (irritable bowel syndrome) Tobacco abuse Chief Complaint "PERSONAL" SINUS PRESSURE/COUGH/FEVER/WANTS COVID TEST CHECK UP EORDER- [...] Eosinophilic asthma October 15, 2024 12 :42pm Chief Complaint Admit Date Congestion / Upper Resp September 14, 2024 12:09pm Acute Sick September 25, 2024 9:4 8am INT LAB September 28, 2024 9: 36am 3 wk fu October 15, 2024 12 :42pm FOLLOW UP October 27, 2024 10:49am Reason for Visit Admit Date Acute sinusitis, unspecified September 14, 2024 12:09pm Asthma September 25, 2024 9:4 8am Seasonal allergies September 25, 2024 9:4 8am Eosinophilic asthma October 15, 2024 12 :42pm Asthma October 15, 2024 12 :42pm Seasonal allergies October 15, 2024 12 :42pm Eosinophilic asthma October 27, 2024 10:49am BPH (benign prostatic hyperplasia) Joyae er 2024 10:49am COPD (chronic obstructive pulmonary dise ase) October 27, 2024 10:49am Hypertension October 27, 2024 10:49am Additional Source Comments Source Comments (unrecognize d section and content) In the event this informatio n is protected by the Federal Confidentiality of Alcohol and Drug Abuse Patient Records regulations: The Federal rules restrict any use of the information to criminally investigate or prosecute any alcohol or drug abuse patient.[facility] Care Teams (unrecognized sec tion and content) Soda Flaker Relationship Specialty Start Date End Date Shane Das DO PCP - General Family Practice 09/05/16 Team Status: Active Member Role Status Dates Dr. Shane Das DO Family Provider Active Dr. Shane Das DO Primary Care Provider Active Team Status: Inactive Member Role Status Dates Dr. Shane Das DO Primary Care Pr ovider, Attending Provider, Referring Provider Active Team Status: Inactive Member Role Status Dates Dr. Shane Das DO Primary Care Provider, Referr ing Provider Active [place], [place] Attending Provider Active Team Status: Active Member Role Status Dates Dr. Shane Das , DO Primary Care Pr ovider, Referring Provider, Other Provider Active Dr. Mack Das DO Attending Provider Active Team Status: Inactive [...] Provider, Referr ing Provider Active Antonette Patterson WELDING EQUIPMENT REPAIRER, WELDING EQUIPMENT REPAIRER-C Attending Provider Active Team Status: Inactive Member Role Status Dates Dr. Shane Das DO Primary Care Provider Active Antonette Patterson WELDING EQUIPMENT REPAIRER, WELDING EQUIPMENT REPAIRER-C Attending Provider, Referrin g Provider Active Team Status: Active Member Role Status Dates Dr. Shane Das DO Primary Care Provider Active Team Status: Inactive Member Role Status Dates Dr. Shane Das DO Primary Care Provider Active Start: January 28, 2024 End: January 28, 2024 Dr. Sahne Das DO Attending Provider Active Start: January [...] 2024 End: September 14, 2024 Yari Garcia WELDING EQUIPMENT REPAIRER-C Attending Provider Active Start: September 14, 2024 End: September 14, 2024 Team Status: Inactive Member Role/Relationship Status Dates Dr. Shane Das DO Primary Care Provider Active Start: September 14, 2024 End: September 14, 2024 Dr. Shane Das DO Referring Provider Active Start: September 14, 2024 End: September 14, 2024 Yari Garcia WELDING EQUIPMENT REPAIRER-C Attending Provider Active Start: September 14, 2024 End: September 14, 2024 Team Status: Inactive Member Role/Relationship Status Dates Dr. Shane Das DO Primary Care Provider Active Start: September 25, 2024 End: September 25, 2024 Dr. Shane Das DO Referring Provider Active Start: September 25, 2024 End: September 25, 2024 Antonette Patterson WELDING EQUIPMENT REPAIRER, WELDING EQUIPMENT REPAIRER-C Attending Provider Active Start: September 25, 2024 End: September 25, 2024 Team Status: Inactive Member Role/Relationship Status Dates Dr. Shane Das DO Primary Care Provider Active Start: September 25, 2024 End: September 25, 2024 Antonette Patterson WELDING EQUIPMENT REPAIRER, WELDING EQUIPMENT REPAIRER-C Attending Provider Active Start: September 25, 2024 End: September 25, 2024 Antonette Patterson WELDING EQUIPMENT REPAIRER, WELDING EQUIPMENT REPAIRER-C Referring Provider Active Start: September 25, 2024 End: September 25, 2024 Team Status: Active Member Role/Relationship Status Dates Dr. Shane Das DO Primary Care Provider Active Start: September 28, 2024 Antonette Patterson WELDING EQUIPMENT REPAIRER, WELDING EQUIPMENT REPAIRER-C Attending Provider Active Start: September 28, 2024 Antonette Patterson WELDING EQUIPMENT REPAIRER, WELDING EQUIPMENT REPAIRER-C Referring Provider Active Start: September 28, 2024 Team Status: Inactive Member Role/Relationship Status Dates Dr. Shane Das DO Primary Care Provider Active Start: September 28, 2024 End: September 28, 2024 Antonette Patterson WELDING EQUIPMENT REPAIRER, WELDING EQUIPMENT REPAIRER-C Attending Provider Active Start: September 28, 2024 End: September 28, 2024 Antonette Patterson WELDING EQUIPMENT REPAIRER, WELDING EQUIPMENT REPAIRER-C Referring Provider Active Start: September 28, 2024 End: September 28, 2024 Team Status: Inactive Member Role/Relationship Status Dates Dr. Shane Das DO Primary Care Provider Active Start: October 15, 2024 End: October 15, 2024 Dr. Shane Das DO Referring Provider Active Start: October 15, 2024 End: October 15, 2024 Antonette Patterson WELDING EQUIPMENT REPAIRER, WELDING EQUIPMENT REPAIRER-C Attending Provider Active Start: October 15, 2024 End: October 15, 2024 Team Status: Active Member Role/Relationship Status Dates Dr. Shane Das DO Primary Care Provider Active Start: October 22, 2024 Antonette Patterson WELDING EQUIPMENT REPAIRER, WELDING EQUIPMENT REPAIRER-C Attending Provider Active Start: October 22, 2024 Antonette Patterson WELDING EQUIPMENT REPAIRER, WELDING EQUIPMENT REPAIRER-C Referring Provider Active Start: October 22, 2024 Team Status: Inactive Member Role/Relationship Status Dates Dr. Shane Das DO Primary Care Provider Active Start: October 27, 2024 End: October 27, 2024 Dr. Shane Das DO Attending Provider Active Start: October 27, 2024 End: October 27, 2024 Dr. Shane Das DO Referring Provider Active Start: October 27, 2024 End: October 27, 2024 Team Status: Active Member Role/Relationship Status Dates Dr. Shane Das DO Primary Care Provider Active Start: October 27, 2024 Dr. Shane Das DO Attending Provider Active Start: October 27, 2024 Dr. Shane Das DO Referring Provider Active Start: October 27, 2024 Team Status: Active Member Role/Relationship Status Dates Dr. Shane Das DO Primary care physician Active Team Status: Inactive Member Role/Relationship Status Dates Dr. Shane Das DO Primary care physician Active Start: September 14, 2024 End: September 14, 2024 Dr. Shane Das DO Referring Provider Active Start: September 14, 2024 End: September 14, 2024 Yari Ungerer , WELDING EQUIPMENT REPAIRER-C Attending physician Active Start: September 14, 2024 End: September 14, 2024 Team Status: Inactive Member Role/Relationship Status Dates Dr. Shane Das DO Primary care physician Active Start: September 25, 2024 End: September 25, 2024 Dr. Shane Das DO Referring Provider Active Start: September 25, 2024 End: September 25, 2024 Antonette Patterson WELDING EQUIPMENT REPAIRER, WELDING EQUIPMENT REPAIRER-C Attending physician Active Start: September 25, 2024 End: September 25, 2024 Team Status: Inactive Member Role/Relationship Status Dates Dr. Shane Das DO Primary care physician Active Start: September 25, 2024 End: September 25, 2024 Antonette Patterson WELDING EQUIPMENT REPAIRER, WELDING EQUIPMENT REPAIRER-C Attending physician Active Start: September 25, 2024 End: September 25, 2024 Antonette Patterson WELDING EQUIPMENT REPAIRER, WELDING EQUIPMENT REPAIRER-C Referring Provider Active Start: September 25, 2024 End: September 25, 2024 Team Status: Inactive Member Role/Relationship Status Dates Dr. Shane Das DO Primary care physician Active Start: September 28, 2024 End: September 28, 2024 Antonette Patterson WELDING EQUIPMENT REPAIRER, WELDING EQUIPMENT REPAIRER-C Attending physician Active Start: September 28, 2024 End: September 28, 2024 Antonette Patterson WELDING EQUIPMENT REPAIRER, WELDING EQUIPMENT REPAIRER-C Referring Provider Active Start: September 28, 2024 End: September 28, 2024 Team Status: Inactive Member Role/Relationship Status Dates Dr. Shane Das DO Primary care physician Active Start: October 15, 2024 End: October 15, 2024 Dr. Shane Das DO Referring Provider Active Start: October 15, 2024 End: October 15, 2024 Antonette Patterson WELDING EQUIPMENT REPAIRER, WELDING EQUIPMENT REPAIRER-C Attending physician Active Start: October 15, 2024 End: October 15, 2024 Team Status: Active Member Role/Relationship Status Dates Dr. Shane Das DO Primary care physician Active Start: October 22, 2024 Antonette Patterson WELDING EQUIPMENT REPAIRER, WELDING EQUIPMENT REPAIRER-C Attending physician Active Start: October 22, 2024 Antonette Patterson WELDING EQUIPMENT REPAIRER, WELDING EQUIPMENT REPAIRER-C Referring Provider Active Start: October 22, 2024 Team Status: Inactive Member Role/Relationship Status Dates Dr. Shane Das DO Primary care physician Active Start: October 27, 2024 End: October 27, 2024 Dr. Shane Das DO Attending physician Active Start: October 27, 2024 End: October 27, 2024 Dr. Shane Das DO Referring Provider Active Start: October 27, 2024 End: October 27, 2024 Team Status: Inactive Member Role/Relationship Status Dates Dr. Shane Das DO Primary care physician Active Start: October 27, 2024 End: October 27, 2024 Dr. Shane Das DO Attending physician Active Start: October 27, 2024 End: October 27, 2024 Dr. Shane Das DO Referring Provider Active Start: October 27, 2024 End: October 27, 2024 Team Status: Inactive Member Role/Relationship Status Dates Dr. Shane Das DO Primary care physician Active Start: October 22, 2024 End: October 22, 2024 Antonette Patterson WELDING EQUIPMENT REPAIRER, WELDING EQUIPMENT REPAIRER-C Attending physician Active Start: October 22, 2024 End: October 22, 2024 Antonette Patterson NP WELDING EQUIPMENT REPAIRER-C Referring Provider Active Start: October 22, 2024 End: October 22, 2024 (unrecognized sect ion and content) No Status Records FoundNo Status Records Found INFORMATION SOURCE (unrecogn ized section and content) DATE CREATED AUTHOR 05/30/2021 [facility] DATE CREATED AUTHOR AUTHOR'S ORGANIZ ATION 11/26/2024 [facility] Goals (unrecognized section and content) Goals [...] BE BASED ON THE PRIMARY CLINICAL RECORDS. [facility] [employer] [facility]. provides no warranty or guarantee of the accuracy or completeness of information in this document.
== END | disposition home or self-care (01) ==
LOC: CT 12:38
PROVIDERS: PCP Family Medicine; Referring Provider Nurse Practitioner Acute Care; Visit Provider Nurse Practitioner Acute Care
DX: R91.1 Solitary pulmonary nodule (principal); F17.200 Nicotine dependence, unspecified, uncomplicated
CPT/HCPCS: 71250

== ENCOUNTER → 2024-12-25 | Outpatient (CLI) | payer MEDICARE, SELFPAY ==
--- NOTE | 2024-12-25 12:50 | RAD_ITS ---
PROCEDURE: RAD/Chest PA and Lateral
== END | disposition home or self-care (01) ==
LOC: MTRAD 12:50
PROVIDERS: PCP Family Medicine; Referring Provider Physician Assistant Surgical; Visit Provider Physician Assistant Surgical
DX: R05.9 Cough, unspecified (principal); J44.9 Chronic obstructive pulmonary disease, unspecified
CPT/HCPCS: 71046